=== PATIENT | female | born 1950 | race Caucasian/White ===

== ENCOUNTER 2016-12-31 14:43 | Emergency (ER) | payer MEDICARE, OTHER ==
--- NOTE | 2016-12-31 16:52 | ED ---
General Adult HPI - General Chief complaint: Head Injury Stated complaint: foot injury Time Seen by Provider: 12/31/16 16:30 Source: patient Mode of arrival: ambulatory Limitations: no limitations - History of Present Illness Initial comments: 66-year-old female patient comes into the emergency Department with complaints of right foot and ankle pain, right lower back pain and hip pain, and headaches. She states about a week ago she was moving a couch when she accidentally dropped it on her foot and twisted her ankle in the process. Patient states that later that evening she was walking her dog when she fell forward injuring her right hip and hitting her head on the sidewalk. Patient states that she did not lose consciousness but felt dazed and saw stars after hitting her head. Patient states since then she has been having headaches, has been nauseated, and has felt generally run down since the incident. Patient is able to bear weight and walk on her ankle but states it causes her a lot of pain. She denies any chest pain, shortness of breath, blurred, or double vision. Patient denies any dizziness, weakness, numbness, or tingling anywhere. - Related Data Home Medications Medication Instructions Recorded Confirmed Albuterol Inhaler [Ventolin Hfa 1 - 2 puff INHALATION RT-Q6H PRN 12/31/16 Inhaler] Dextroamphetamine/Amphetamine 15 mg PO QAM 12/31/16 12/31/16 [Adderall Xr] HYDROcodone/APAP 10-325MG [[place] 1 tab PO TID PRN 12/31/16 12/31/16 10-325] SUMAtriptan SUCCINATE [Imitrex] 100 mg PO BID PRN 12/31/16 12/31/16 Topiramate [Topamax] 50 mg PO HS 12/31/16 12/31/16 Verapamil HCl [Verapamil ER] 120 mg PO DAILY 12/31/16 12/31/16 Previous Rx's Medication Instructions Recorded Cyclobenzaprine [Flexeril] 5 mg PO TID PRN #15 tablet 12/31/16 Ibuprofen [Motrin] 600 mg PO Q8HR PRN #30 tab 12/31/16 Allergies Allergy/AdvReac Type Severity Reaction Status Date / Time No Known Allergies Allergy Verified 12/31/16 15:50 Review of Systems ROS Statement: Those systems with pertinent positive or pertinent negative responses have been documented in the HPI. ROS Other: All systems not noted in ROS Statement are negative. Past Medical History Past Medical History: COPD, Hyperlipidemia, Hypertension Additional Past Medical History / Comment(s): migraine, History of Any Multi-Drug Resistant Organisms: None Reported Past Surgical History: Orthopedic Surgery Additional Past Surgical History / Comment(s): hip surgery Past Psychological History: Bipolar Smoking Status: Former smoker Past Alcohol Use History: None Reported Past Drug Use History: None Reported General Exam Limitations: no limitations General appearance: alert, in no apparent distress Head exam: Present: atraumatic, normocephalic, normal inspection Eye exam: Present: normal appearance, PERRL, EOMI Pupils: Present: normal accommodation ENT exam: Present: normal exam, normal oropharynx, mucous membranes moist, TM's normal bilaterally. Absent: mucous membranes dry Neck exam: Present: normal inspection, full ROM. Absent: tenderness, lymphadenopathy Respiratory exam: Present: normal lung sounds bilaterally. Absent: respiratory distress, wheezes, rales, rhonchi, stridor, chest wall tenderness Cardiovascular Exam: Present: regular rate, normal rhythm, normal heart sounds. Absent: irregular rhythm, systolic murmur, diastolic murmur, rubs, gallop, clicks GI/Abdominal exam: Present: normal bowel sounds. Absent: distended, tenderness , guarding, rebound, rigid, diminished bowel sounds, organomegaly, mass, hernia Extremities exam: Present: full ROM, normal capillary refill, other (Right ankle and foot swelling, limited range of motion in the ankle due to pain, pedal pulses intact. Left knee abrasions. Left foot pedal pulse intact.) Back exam: Present: normal inspection, full ROM, tenderness (Left lower over the SI joint). Absent: CVA tenderness (R), CVA tenderness (L), muscle spasm Neurological exam: Present: alert, oriented X3, CN II-XII intact Psychiatric exam: Present: normal affect, normal mood Skin exam: Present: warm, dry, intact Course Vital Signs 12/31/16 15:46 Temperature 98.2 F Pulse Rate 67 Respiratory 20 Rate Blood Pressure 122/72 O2 Sat by Pulse 97 Oximetry Medical Decision Making - Medical Decision Making 66-year-old female patient presented to the emergency department today for complaints of headache, low back pain, and right ankle pain after dropping a couch on her foot and then later that night experiencing a fall. CT of the brain and C-spine was obtained and showed no acute intracranial abnormalities as well as no acute fracture or subluxation of the cervical spine. X-rays are obtained of her pelvis, ankle, and foot which also showed no acute bony abnormalities. Patient will be discharged home with a prescription for ibuprofen, and Flexeril to add to her home [place] for pain control. Patient was instructed to follow-up with her primary care provider in one to 2 days for recheck. Patient understands that she should return for any worsening, new, or concerning symptoms. Patient agrees with this plan. - Radiology Data Radiology results: report reviewed, image reviewed Interpreted by me: X-ray of the pelvis, foot, and ankle, and reveal no acute bony abnormalities. CT of the brain and C-spine without contrast was obtained. Impression: No acute fracture or dislocation evident the cervical spine. No acute intracranial hemorrhage, mass effect, or midline shift seen as read by Dr. Nguyen. Disposition Clinical Impression: Acute low back pain, Ankle sprain, Head injury Disposition: HOME SELF-CARE Condition: Stable Instructions: Head Injury (ED), Ankle Sprain (ED), Acute Low Back Pain (ED) Additional Instructions: Utilize air splint to right ankle for comfort. Take muscle relaxers and ibuprofen as well as home prescription of [place] for pain control. Follow up with primary care physician in one to 2 days for recheck. Return to emergency department for any new, worsening, or concerning symptoms. Prescriptions: Cyclobenzaprine [Flexeril] 5 mg PO TID PRN #15 tablet PRN Reason: Muscle Spasm Ibuprofen [Motrin] 600 mg PO Q8HR PRN #30 tab PRN Reason: Pain Referrals: Alfonzo Sampson MD [Primary Care Provider] - 1-2 days Time of Disposition: 19:07
--- NOTE | 2016-12-31 18:10 | CT ---
EXAMINATION TYPE: CT brain oruqidea wo con DATE OF EXAM: 12/31/2016 5:36 PM COMPARISON: NONE HISTORY: Fall 6 days ago. Headache and neck pain. CT DLP: 1549.00 mGycm Automated exposure control for dose reduction was used. TECHNIQUE: CT scan of the head and cervical spine are performed without contrast. FINDINGS: There is no acute intracranial hemorrhage, mass effect, or midline shift identified. The ventricles and sulci are within normal limits in size. The globes are intact and the visualized sin uses are clear. Cervical spine is visualized in its entirety from C1 through upper thoracic levels and demonstrates s atisfactory alignment without evidence of acute fracture or dislocation. Prevertebral soft tissue ap pears within normal limits. The C1-C2 articulation is unremarkable. Prominent multilevel cervical sp ondylosis changes are appreciated. IMPRESSION: 1. There is no acute fracture or dislocation evident in the cervical spine. 2. No acute intracranial hemorrhage, mass effect, or midline shift is seen.
--- NOTE | 2016-12-31 19:25 | XR ---
EXAMINATION TYPE: XR pelvis AP view DATE OF EXAM: 12/31/2016 5:43 PM COMPARISON: NONE HISTORY: Pain after fall TECHNIQUE: AP pelvis one view FINDINGS: The right THR is intact. There is no fracture or malalignment. IMPRESSION: No acute process.
--- NOTE | 2016-12-31 19:27 | XR ---
EXAMINATION TYPE: XR ankle complete RT DATE OF EXAM: 12/31/2016 5:43 PM COMPARISON: NONE HISTORY: Pain after injury TECHNIQUE: 3 views FINDINGS: Bones and joints and soft tissues are unremarkable. IMPRESSION: No acute process.
--- NOTE | 2016-12-31 19:28 | XR ---
EXAMINATION TYPE: XR foot complete RT DATE OF EXAM: 12/31/2016 5:43 PM COMPARISON: NONE HISTORY: Pain after injury TECHNIQUE: 3 views FINDINGS: The bones and joints and soft tissues are unremarkable for acute findings. IMPRESSION: Negative for fracture or malalignment.
[2016-12-31 19:30] VITALS: BP 152/84; PULSE 80; RESP 18; TEMP 97.4
== END 2016-12-31 19:30 | disposition home or self-care (01) ==
LOC: EC 14:43
DX: M54.5 Low back pain (principal); S93.401A Sprain of unspecified ligament of right ankle, initial encounter; W20.8XXA Other cause of strike by thrown, projected or falling object, initial encounter; S09.90XA Unspecified injury of head, initial encounter; W01.0XXA Fall on same level from slipping, tripping and stumbling without subsequent striking against object, initial encounter; Y93.K1 Activity, walking an animal; Z79.899 Other long term (current) drug therapy; I10 Essential (primary) hypertension; Z87.891 Personal history of nicotine dependence; G43.909 Migraine, unspecified, not intractable, without status migrainosus
CPT/HCPCS: 70450; 72125; 72170; 99284

== ENCOUNTER 2017-01-29 23:38 | Emergency (ER) | payer MEDICARE, OTHER ==
[2017-01-29 23:49] VITALS: RESP 18
[2017-01-30] MEDS ORDERED: DEXAMETHASONE SOD PHOSPHATE 4 MG/ML 1 ML VIAL IV STA (00:09)
[2017-01-30] MEDS ORDERED: diphenhydrAMINE 50 MG/ML 1 ML VIAL IVP STA (00:09)
[2017-01-30] MEDS ORDERED: SODIUM CHLORIDE 0.9% 1,000 ML IV ONE (00:11)
[2017-01-30] MEDS ORDERED: METOCLOPRAMIDE 5 MG/ML 2 ML VIAL IVP STA (00:11)
--- NOTE | 2017-01-30 00:18 | ED ---
General Adult HPI - General Chief complaint: Headache Stated complaint: ASTER,chest pain,feet swelling Time Seen by Provider: 01/29/17 23:58 Source: patient, RN notes reviewed Mode of arrival: wheelchair Limitations: no limitations - History of Present Illness Initial comments: This is a 66-year-old female who presents with chronic migraine symptoms. Patient states she has not had them in a while but her daughter early in December this year and they have returned. Patient denies any head injury. Patient is not on any anticoagulants. Patient states she gets some mild nausea with her migraine symptoms but denies any photophobia. Patient states these are the same migraine symptoms she gets with every migraine. Patient states she has tried Motrin and Imitrex and [place] for the headache but this has not helped. Patient states she has been more depressed than usual but denies any suicidal ideation or homicidal ideation. Patient also reports a cough for the past 2 weeks that has been productive. Patient states she is concerned for pneumonia. Patient admits to being a smoker, but states she quit two months ago. Patient states she has a history of COPD. Patient denies any fever/chills but states she's been feeling more warm than usual. Patient denies any recent shortness breath, chest pain, abdominal pain, vomiting/diarrhea, back pain, numbness, tingling, hematuria, or visual changes, or any other complaints. - Related Data Home Medications Medication Instructions Recorded Confirmed Albuterol Inhaler [Ventolin Hfa 1 - 2 puff INHALATION RT-Q6H PRN 12/31/16 Inhaler] Dextroamphetamine/Amphetamine 15 mg PO QAM 12/31/16 01/29/17 [Adderall Xr] HYDROcodone/APAP 10-325MG [[place] 1 tab PO TID PRN 12/31/16 01/29/17 10-325] SUMAtriptan SUCCINATE [Imitrex] 100 mg PO BID PRN 12/31/16 01/29/17 Topiramate [Topamax] 50 mg PO HS 12/31/16 01/29/17 Verapamil HCl [Verapamil ER] 120 mg PO DAILY 12/31/16 01/29/17 Previous Rx's Medication Instructions Recorded Cyclobenzaprine [Flexeril] 5 mg PO TID PRN #15 tablet 12/31/16 Ibuprofen [Motrin] 600 mg PO Q8HR PRN #30 tab 12/31/16 Azithromycin [Zithromax Z-pack] 250 mg PO DIRECTED #6 tab 01/30/17 Benzonatate [Tessalon Perles] 100 mg PO TID 3 Days 01/30/17 predniSONE 20 mg PO DAILY 5 Days 01/30/17 Allergies Allergy/AdvReac Type Severity Reaction Status Date / Time No Known Allergies Allergy Verified 01/29/17 23:48 Review of Systems ROS Statement: Those systems with pertinent positive or pertinent negative responses have been documented in the HPI. ROS Other: All systems not noted in ROS Statement are negative. Past Medical History Past Medical History: COPD, Hyperlipidemia, Hypertension Additional Past Medical History / Comment(s): migraine, History of Any Multi-Drug Resistant Organisms: None Reported Past Surgical History: Orthopedic Surgery Additional Past Surgical History / Comment(s): hip surgery Past Psychological History: Anxiety, Bipolar, Depression, Panic Disorder Smoking Status: Former smoker Past Alcohol Use History: None Reported Past Drug Use History: None Reported General Exam - General Exam Comments Initial Comments: General: The patient is awake and alert, in no distress, and does not appear acutely ill. Eye: Pupils are equal, round and reactive to light, extra-ocular movements are intact. No nystagmus. There is normal conjunctiva bilaterally. No signs of icterus. Ears: TMs pink and pearly with intact cone of light bilaterally. Normal external ear canals Nose: Nasal turbinates pink and moist Mouth and throat: There are moist mucous membranes and no oral lesions. Neck: The neck is supple, there is no tenderness or JVD. Cardiovascular: There is a regular rate and rhythm. No murmur, rub or gallop is appreciated. Respiratory: Productive cough present on exam. Lungs with faint wheezes bilaterally, respirations are non-labored, breath sounds are equal. No stridor , rales, or rhonchi. Gastrointestinal: Soft, non-distended, non-tender abdomen without masses or organomegaly noted. There is no rebound or guarding present. No CVA tenderness. Bowel sounds are unremarkable. Musculoskeletal: Normal ROM, no tenderness. Strength 5/5. Sensation intact. Radial pulses equal bilaterally 2+. Neurological: A&O x 3. CN II-XII intact, There are no obvious motor or sensory deficits. Coordination appears grossly intact. Speech is normal. Skin: Skin is warm and dry and no rashes or lesions are noted. Psychiatric: Cooperative, appropriate mood & affect, normal judgment. Limitations: no limitations Course Vital Signs 01/29/17 01/30/17 23:45 00:49 Temperature 98.6 F Pulse Rate 82 75 Respiratory 18 18 Rate Blood Pressure 106/59 O2 Sat by Pulse 93 L 95 Oximetry Medical Decision Making - Medical Decision Making This is a 66-year-old female who presents with chronic migraine symptoms. On physical exam patient is neurologically intact. Patient has productive cough present on exam. Lungs with faint wheezes. A chest x-ray is done and reviewed showing: No acute findings. Reported by Dr. Al. Patient is given IV Benadryl, Reglan, dexamethasone and a fluid bolus. Patient states she is feeling improvement in symptoms and states her headache is gone. I discussed the results of the chest x-ray with patient. Discussed that the patient will be put on azithromycin for upper respiratory infection. Discussed the patient will also be put on a short course of prednisone and Tessalon Perles. Patient refused a DuoNeb in the EC today stating she does not feel short of breath. Patient states she has inhalers at home that she uses for COPD symptoms if needed. Discussed return parameters. Discussed that patient should follow up with PCP in one to 2 days or return to the [facility] for any worsening symptoms or for any further concerns. Patient was receptive to this plan and patient will be discharged home. I discussed this case with attending physician Dr. Rodriguez who agrees the plan as stated above. Disposition Clinical Impression: Cough, Migraine, Upper respiratory infection Disposition: HOME SELF-CARE Condition: Good Instructions: Migraine Headache (ED), Upper Respiratory Infection (ED) Additional Instructions: Please finish entire course of antibiotics. Please use prednisone and Tessalon Perles as prescribed. Please use medication as discussed. Please follow-up with family doctor in the next 2 days of symptoms have not improved. Please return to emergency room if the symptoms increase or worsen or for any other concerns. Prescriptions: Azithromycin [Zithromax Z-pack] 250 mg PO DIRECTED #6 tab Benzonatate [Tessalon Perles] 100 mg PO TID 3 Days predniSONE 20 mg PO DAILY 5 Days Referrals: Alfonzo Sampson MD [Primary Care Provider] - 1-2 days Time of Disposition: 01:21
--- NOTE | 2017-01-30 01:02 | XR ---
EXAM: XR Chest, 2 Views. CLINICAL HISTORY: Pain TECHNIQUE: Frontal and lateral views of the chest. COMPARISON: No relevant prior studies available. FINDINGS: Lungs: Small amount left basilar airspace opacities likely represent atelectasis and/or pneumonia. Pressure. Pleural space: Unremarkable. No pneumothorax. Heart: Unremarkable. No cardiomegaly. Mediastinum: Unremarkable. Bones/joints: Osteopenia. IMPRESSION: No acute findings.
[2017-01-30 01:38] VITALS: BP 120/69; PULSE 90; TEMP 97.8
== END 2017-01-30 01:42 | disposition home or self-care (01) ==
LOC: EC 23:38
DX: G43.909 Migraine, unspecified, not intractable, without status migrainosus (principal); J06.9 Acute upper respiratory infection, unspecified; R07.9 Chest pain, unspecified; J44.9 Chronic obstructive pulmonary disease, unspecified; I10 Essential (primary) hypertension; F41.0 Panic disorder [episodic paroxysmal anxiety]; F31.9 Bipolar disorder, unspecified; Z79.899 Other long term (current) drug therapy
CPT/HCPCS: 99283; 96374; 96375 ×2; 96361; 71020; J1200; J1100; J2765

== ENCOUNTER → 2017-12-30 | Outpatient (CLI) | payer MEDICARE, OTHER ==
[2017-12-30 12:32] LABS: Basophils # (A) 0.1 k/uL (0-0.2); Basophils % (A) 1 %; Eosinophils # (A) 0.1 k/uL (0-0.7); Eosinophils % (A) 2 %; HCT 40.1 % (34.0-46.0); HGB 12.8 gm/dL (11.4-16.0); Lymphocytes % (A) 41 %; MCH 29.8 pg (25.0-35.0); MCHC 31.9 g/dL (31.0-37.0); MCV 93.3 fL (80.0-100.0); Mean Platelet Volume 8.4; Monocytes # (A) 0.5 k/uL (0-1.0); Monocytes % (A) 7 %; Neutrophils # (A) 3.5 k/uL (1.3-7.7); Neutrophils % (A) 47 %; Platelet Count 279 k/uL (150-450); RDW 13.3 % (11.5-15.5); WBC 7.3 k/uL (3.8-10.6)
[2017-12-30 13:03] LABS: ALT 20 U/L (9-52); AST 25 U/L (14-36); Albumin 4.6 g/dL (3.5-5.0); Alkaline Phosphatase 71 U/L (38-126); Anion Gap 12 mmol/L; Blood Urea Nitrogen 14 mg/dL (7-17); Calcium 10.9 mg/dL (8.4-10.2); Carbon Dioxide 24 mmol/L (22-30); Chloride 110 mmol/L (98-107); Cholesterol 149 mg/dL (<200); Glucose 103 mg/dL (74-99); HDL Cholesterol 65 mg/dL (40-60); LDL Cholesterol,Calculated 66 mg/dL (0-99); Potassium 4.4 mmol/L (3.5-5.1); Sodium 146 mmol/L (137-145); Total Bilirubin 0.5 mg/dL (0.2-1.3); Total Protein 7.4 g/dL (6.3-8.2); Triglycerides 91 mg/dL (<150)
[2017-12-30 20:47] LABS: Hemoglobin A1C 5.8 % (4.0-6.0)
== END | disposition home or self-care (01) ==
LOC: LABWHC1 11:58
PROVIDERS: ATTEND Internal Medicine
DX: E55.9 Vitamin D deficiency, unspecified (principal); I10 Essential (primary) hypertension; J44.9 Chronic obstructive pulmonary disease, unspecified; R53.83 Other fatigue; R73.09 Other abnormal glucose
CPT/HCPCS: 36415; 80053; 80061; 82306; 83036; 84443; 85025

== ENCOUNTER → 2018-02-06 | Outpatient (CLI) | payer MEDICARE, OTHER ==
--- NOTE | 2018-02-08 10:48 | MM ---
Reason for exam: screening (asymptomatic). Last mammogram was performed 3 years and 9 months ago. History: Patient is postmenopausal. Family history of breast cancer in sister. Physical Findings: A clinical breast exam by your physician is recommended on an annual basis and results should be correlated with mammographic findings. MG 3D Screening Mammo W/Cad Bilateral CC and MLO view(s) were taken. Prior study comparison: April 28, 2014, bilateral MG screening mammo w CAD. December 05, 2005, bilateral screening mammogram w/CAD. There are scattered fibroglandular densities. Stable nodule left breast. No significant changes when compared with prior studies. ASSESSMENT: Benign, BI-RAD 2 RECOMMENDATION: Routine screening mammogram of both breasts in 1 year.
== END | disposition home or self-care (01) ==
LOC: RADMAMWWP 11:14
PROVIDERS: ATTEND Internal Medicine
DX: Z12.31 Encounter for screening mammogram for malignant neoplasm of breast (principal)
CPT/HCPCS: 77063; 77067

== ENCOUNTER → 2019-11-11 | Outpatient (CLI) | payer MEDICARE, OTHER ==
[~2019-11-11] MED LIST: DENOSUMAB 60 MG/ML 1 ML SYRINGE SQ NR
[2019-11-11 13:14] VITALS: BP 144/81; PULSE 76; RESP 18; TEMP 99.3
== END | disposition home or self-care (01) ==
LOC: PROCWHC3 12:58
PROVIDERS: ATTEND Internal Medicine
DX: M81.0 Age-related osteoporosis without current pathological fracture (principal)
CPT/HCPCS: 96372; J0897

== ENCOUNTER → 2020-05-11 | Outpatient (CLI) | payer MEDICARE, OTHER ==
[2020-05-11 13:43] VITALS: BP 125/83; PULSE 74; RESP 18; TEMP 98.5
== END | disposition home or self-care (01) ==
LOC: PROCWHC3 13:27
PROVIDERS: ATTEND Internal Medicine
DX: M81.0 Age-related osteoporosis without current pathological fracture (principal)
CPT/HCPCS: 96372; J0897

== ENCOUNTER 2022-02-24 11:49 | Inpatient (IN) | payer MEDICARE, OTHER ==
[2022-02-24] MEDS ORDERED: VANCOMYCIN IV PER PHARMACY 1 EACH MISC MISCELLANE PRN (15:03)
--- NOTE | 2022-02-24 15:28 | ED ---
General Adult HPI - General Chief complaint: Skin/Abscess/Foreign Body Stated complaint: Staph Infection Time Seen by Provider: 02/24/22 14:43 Source: patient Mode of arrival: ambulatory Limitations: no limitations - History of Present Illness Initial comments: This 71-year-old female presents emergency Department with facial cellulitis after having an infection on her chin start one month ago. Patient states she had a pimple on her chin around 3-4 weeks ago and popped it. Patient states over the last 2-3 weeks it began to become more erythematous and began to spread to in between her eyebrows and on her face in the housecalls nurse of the left side of h er mouth. Patient states her primary care doctor is and he prescribed her Bactrim about 2 weeks ago which she has completed. Patient states she went to [facility] and was given Keflex before discharge which she has also completed. Patient states she went to see her primary care provider today and he sent her here for IV antibiotics as the cellulitis is spreading on her face after taking 2 different antibiotics. Patient states these areas are painful but denies any drainage. Patient states her pain is 5/10. Patient denies any chest pain, shortness of breath, abdominal pain, fever, nausea, vomiting, change in bowel or bladder, change in vision, lightheadedness, dizziness, trouble swallowing. - Related Data Home Medications Medication Instructions Recorded Confirmed Albuterol Inhaler (Mhu) [Ventolin 1 - 2 puff INHALATION RT-Q6H PRN 12/31/16 05/11/20 Hfa Inhaler] HYDROcodone/APAP 10-325MG [[place] 1 tab PO TID PRN 12/31/16 05/11/20 10-325] SUMAtriptan SUCCINATE [Imitrex] 100 mg PO BID PRN 12/31/16 05/11/20 Verapamil HCl [Verapamil ER] 120 mg PO DAILY 12/31/16 05/11/20 ALPRAZolam [Xanax] 1 tab PO DIRECTED PRN 11/11/19 05/11/20 Citalopram Hydrobromide [CeleXA] 20 mg PO DAILY 11/11/19 05/11/20 Allergies Allergy/AdvReac Type Severity Reaction Status Date / Time No Known Allergies Allergy Verified 02/24/22 13:02 Review of Systems ROS Statement: Those systems with pertinent positive or pertinent negative responses have been documented in the HPI. ROS Other: All systems not noted in ROS Statement are negative. Past Medical History Past Medical History: COPD, Hyperlipidemia, Hypertension Additional Past Medical History / Comment(s): migraine, History of Any Multi-Drug Resistant Organisms: None Reported Past Surgical History: Orthopedic Surgery Additional Past Surgical History / Comment(s): hip surgery Past Psychological History: Anxiety, Bipolar, Depression, Panic Disorder Smoking Status: Never smoker Past Alcohol Use History: None Reported Past Drug Use History: None Reported General Exam Limitations: no limitations General appearance: alert, in no apparent distress Head exam: Present: atraumatic, normocephalic. Absent: normal inspection (Patient with a quarter size erythematous indurated area on chin; erythema and crusting to the left side of corner mouth, erythema/crusting area 0.5cm in between eyebrows) Eye exam: Present: normal appearance, PERRL, EOMI. Absent: scleral icterus, conjunctival injection, periorbital swelling Pupils: Present: normal accommodation ENT exam: Present: normal exam, mucous membranes moist Neck exam: Present: normal inspection, full ROM. Absent: tenderness, meningismus, lymphadenopathy Respiratory exam: Present: normal lung sounds bilaterally. Absent: respiratory distress, wheezes, rales, rhonchi, stridor, chest wall tenderness Cardiovascular Exam: Present: regular rate, normal rhythm, normal heart sounds. Absent: systolic murmur, diastolic murmur, rubs, gallop, clicks GI/Abdominal exam: Present: soft, normal bowel sounds. Absent: distended, tenderness, guarding, rebound, rigid Extremities exam: Present: normal inspection, full ROM, normal capillary refill. Absent: tenderness, pedal edema, joint swelling, calf tenderness Back exam: Present: full ROM. Absent: CVA tenderness (R), CVA tenderness (L), paraspinal tenderness, vertebral tenderness Neurological exam: Present: alert, oriented X3, CN II-XII intact Psychiatric exam: Present: normal affect, normal mood Skin exam: Present: warm, dry, intact, normal color. Absent: rash Course Vital Signs 02/24/22 13:02 Temperature 97.3 F L Pulse Rate 80 Respiratory 16 Rate Blood Pressure 146/79 O2 Sat by Pulse 97 Oximetry Medical Decision Making - Medical Decision Making This 71-year-old female presents emergency Department after being sent here by her primary care provider. Patient has had infection to her chin and was treated with Bactrim and Keflex, however infection spread to corner of mouth and in between her eyebrows. Primary care physician, requested patient be admitted to the hospital on IV vancomycin in to be seen by infectious disease. He also requested I order blood cultures. I did order basic labs which did not reveal leukocytosis or other acute abnormalities. Patient admitted to the hospital to be seen by his primary care physician and infectious disease. Patient verbally agreed to plan to be admitted for further workup, evaluation and treatment. Discussed case in detail with my attending, Dr. Segura. - Lab Data Result diagrams: 02/24/22 15:30 02/24/22 15:30 Lab Results 02/24/22 02/24/22 02/24/22 Range/Units 15:30 15:30 15:30 WBC 8.6 (3.8-10.6) k/uL RBC 4.18 (3.80-5.40) m/uL Hgb 12.7 (11.4-16.0) gm/dL Hct 38.9 (34.0-46.0) % MCV 93.0 (80.0-100.0) fL MCH 30.5 (25.0-35.0) pg MCHC 32.7 (31.0-37.0) g/dL RDW 14.1 (11.5-15.5) % Plt Count 343 (150-450) k/uL MPV 7.8 Neutrophils % 57 % Lymphocytes % 33 % Monocytes % 5 % Eosinophils % 1 % Basophils % 1 % Neutrophils # 4.9 (1.3-7.7) k/uL Lymphocytes # 2.9 (1.0-4.8) k/uL Monocytes # 0.4 (0-1.0) k/uL Eosinophils # 0.1 (0-0.7) k/uL Basophils # 0.1 (0-0.2) k/uL Sodium 142 (137-145) mmol/L Potassium 3.4 L (3.5-5.1) mmol/L Chloride 107 (98-107) mmol/L Carbon Dioxide 23 (22-30) mmol/L Anion Gap 12 mmol/L BUN 15 (7-17) mg/dL Creatinine 0.58 (0.52-1.04) mg/dL Est GFR (CKD-EPI)AfAm >90 (>60 ml/min/1.73 sqM) Est GFR (CKD-EPI)NonAf >90 (>60 ml/min/1.73 sqM) Glucose 103 H (74-99) mg/dL Plasma Lactic Acid Anatoliy 0.9 (0.7-2.0) mmol/L Calcium 9.4 (8.4-10.2) mg/dL Total Bilirubin 0.5 (0.2-1.3) mg/dL AST 22 (14-36) U/L ALT 12 (4-34) U/L Alkaline Phosphatase 65 (38-126) U/L Total Protein 7.6 (6.3-8.2) g/dL Albumin 4.5 (3.5-5.0) g/dL Disposition Clinical Impression: Infection, face, Cellulitis, face Disposition: ADMITTED IP TO THIS [facility] Condition: Serious Referrals: Alfonso Chung MD [Primary Care Provider] - 1-2 days
[2022-02-24 15:35] LABS: Basophils # (A) 0.1 k/uL (0-0.2); Basophils % (A) 1 %; Eosinophils # (A) 0.1 k/uL (0-0.7); Eosinophils % (A) 1 %; HCT 38.9 % (34.0-46.0); HGB 12.7 gm/dL (11.4-16.0); Lymphocytes # (A) 2.9 k/uL (1.0-4.8); Lymphocytes % (A) 33 %; MCH 30.5 pg (25.0-35.0); MCHC 32.7 g/dL (31.0-37.0); Mean Platelet Volume 7.8; Monocytes # (A) 0.4 k/uL (0-1.0); Monocytes % (A) 5 %; Neutrophils # (A) 4.9 k/uL (1.3-7.7); Neutrophils % (A) 57 %; Platelet Count 343 k/uL (150-450); RBC 4.18 m/uL (3.80-5.40); RDW 14.1 % (11.5-15.5); WBC 8.6 k/uL (3.8-10.6)
[2022-02-24 15:45] LABS: ALT 12 U/L (4-34); AST 22 U/L (14-36); African American GFR (CKD) >90 (>60 ml/min/1.73 sqM); Albumin 4.5 g/dL (3.5-5.0); Alkaline Phosphatase 65 U/L (38-126); Anion Gap 12 mmol/L; Blood Urea Nitrogen 15 mg/dL (7-17); Calcium 9.4 mg/dL (8.4-10.2); Carbon Dioxide 23 mmol/L (22-30); Chloride 107 mmol/L (98-107); Glucose 103 mg/dL (74-99); Non-African American GFR(CKD) >90 (>60 ml/min/1.73 sqM); Potassium 3.4 mmol/L (3.5-5.1); Sodium 142 mmol/L (137-145); Total Bilirubin 0.5 mg/dL (0.2-1.3); Total Protein 7.6 g/dL (6.3-8.2)
[2022-02-24] MEDS: MORPHINE SULFATE 2 MG/ML SYRINGE IVP PRN (15:59)
[2022-02-24] MEDS ORDERED: VANCOMYCIN 1,250 MG in SODIUM CHLORIDE 0.9% 250 ML IVPB ONE (16:00)
[2022-02-24] MEDS ORDERED: ONDANSETRON 4 MG/2 ML VIAL IVP PRN (16:58)
[2022-02-24] MEDS ORDERED: NALOXONE 0.4 MG/ML 1 ML VIAL IV PRN (16:58)
[2022-02-24] MEDS ORDERED: SUMAtriptan succinate 50 MG TAB PO PRN (19:39)
[2022-02-24] MEDS ORDERED: methylPREDNISolone SOD SUCCI 125 MG/2 ML VIAL IVP ONE (20:14)
[2022-02-24] MEDS ORDERED: diphenhydrAMINE 50 MG/ML 1 ML VIAL IVP STA (20:14)
[2022-02-24] MEDS: HYDROcodone/APAP 10-325MG 1 EACH TAB PO PRN (20:51)
[2022-02-24] MEDS: diphenhydrAMINE 25 MG CAP PO SCH (21:32)
[2022-02-24] MEDS: ALPRAZolam 0.5 MG TAB PO SCH (21:41)
[2022-02-24] MEDS: MUPIROCIN 2% OINT 22 GM TUBE TOPICAL SCH (21:54)
--- NOTE | 2022-02-25 00:30 | P.CONS ---
History of Present Illness - Reason for Consult Consult date: 02/24/22 - History of Present Illness History of Present Illness : Patient is a 71-year female developed a pimple on her chin more than 2 weeks ago patient mention she tried to open with a tweezer and subsequently noticed to have some drainage patient subsequently was evaluated by her primary care physician and has been treated with the Bactrim DS and local antibiotic cream patient mention she did have some improvement but did not completely resolve subsequently patient was evaluated in the outpatient setting at different ER and she was given some Motrin but no antibiotics patient was evaluated by her primary care physician today with concern for facial cellulitis the patient was sent to the ER for admission and I V antibiotic therapy patient on presentation hospital was afebrile she has been complaining of pain to the chin area to be more of a throbbing about 7-8 out of 10 no radiation patient denies having any drainage from the area with associated swelling or redness patient was started on vancomycin apparently the patient did have some itching associated with it and the vancomycin was discontinued infec tious disease was consulted for further management of antibiotic therapy Review of system: CONSTITUTIONAL: Positive for weakness denies high-grade fever. EYES: No complaint. ENT: As per history of present illness. RESPIRATORY: No complaint. CARDIOVASCULAR: No complaint. GENITOURINARY: No complaint. GASTROINTESTINAL: No complaint. MUSCULOSKELETAL as per history of present illness. INTEGUMENTARY : No complaint. PSYCHOLOGIC: No complaint. ENDOCRINE: No complaint. NEUROLOGIC: No complaint. Past medical history : Reviewed, documented below Past surgical history : Reviewed, documented below Social history: Reviewed, documented below Medications: Reviewed, as documented below EXAMINATION: Vital sigans= Reviewed and documented below GENERAL DESCRIPTION: Elderly female lying in bed, no distress. No tachypnea or accessory muscle of respiration use. HEENT: Shows Pallor , no scleral icterus. Oral mucous membrane is dry. She did have did have a 2 small open wounds with surrounding swelling redness and no foul-smelling drainage NECK: Trachea central, no thyromegaly. LUNGS: Unlabored breathing. Clear to auscultation anteriorly. No wheeze or crackle. HEART: S1, S2, regular rate and rhythm. ABDOMEN: Soft, no tenderness , guarding or rigidity EXTREMITIES: No edema feet SKIN: No rash, no masses palpable. NEUROLOGICAL: The patient is awake, alert, oriented x3, mood and affect normal. LABS AND RADIOLOGY: Reviewed results see below Assessment : Patient presented to hospital with a facial cellulitis and this patient did have a pimple that the patient tried to open with a tweezer and failing outpatient Bactrim DS therapy high clinical suspicion for staphylococcal infection. 2vancomycin intolerance Plan: 1-local wound culture to guide antibiotic therapy 2-Marked area of the redness 3-daptomycin 4 mg/kg daily while waiting for the culture to finalize We will follow on clinical condition and cultures to further adjust medication if needed Thank you for this consultation we will follow the patient along with you Past Medical History Past Medical History: COPD, Hyperlipidemia, Hypertension Additional Past Medical History / Comment(s): migraine, History of Any Multi-Drug Resistant Organisms: None Reported Past Surgical History: Orthopedic Surgery Additional Past Surgical History / Comment(s): hip surgery Past Anesthesia/Blood Transfusion Reactions: No Reported Reaction Past Psychological History: Anxiety, Bipolar, Depression, Panic Disorder Smoking Status: Never smoker Past Alcohol Use History: None Reported Past Drug Use History: None Reported - Past Family History Father Family Medical History: CVA/TIA, Diabetes Mellitus Mother Family Medical History: Myocardial Infarction ([place]) Additional Family Medical History / Comment(s): In her 70's had a heart attack Medications and Allergies Home Medications Medication Instructions Recorded Confirmed Type HYDROcodone/APAP 10-325MG [[place] 1 tab PO TID PRN 12/31/16 02/24/22 History 10-325] ALPRAZolam [Xanax] 0.5 mg PO BID 11/11/19 02/24/22 History Alendronate Sodium [Fosamax] 70 mg PO Q7D 02/24/22 02/24/22 History Calcium Carbonate [Calcium] 600 mg PO DAILY 02/24/22 02/24/22 History Citalopram Hydrobromide [CeleXA] 40 mg PO DAILY 02/24/22 02/24/22 History Ibuprofen [Motrin] 800 mg PO Q8H PRN 02/24/22 02/24/22 History Levothyroxine Sodium [Synthroid] 25 mcg PO DAILY 02/24/22 02/24/22 History Mupirocin 2% Oint [Bactroban 2% 1 applic TOPICAL BID 02/24/22 02/24/22 History Oint] Rosuvastatin Calcium [Crestor] 5 mg PO DAILY 02/24/22 02/24/22 History SUMAtriptan succinate [Imitrex] 50 mg PO DAILY PRN 02/24/22 02/24/22 History Verapamil HCl [Verapamil ER] 180 mg PO DAILY 02/24/22 02/24/22 History diphenhydrAMINE [Benadryl] 50 mg PO HS 02/24/22 02/24/22 History Allergies Allergy/AdvReac Type Severity Reaction Status Date / Time vancomycin Allergy Rash/Hives Verified 02/24/22 20:18 Physical Exam Vitals: Vital Signs Temp Pulse Resp BP Pulse Ox 02/24/22 23:36 18 02/24/22 21:32 98.7 F 68 18 118/68 96 02/24/22 13:02 97.3 F L 80 16 146/79 97 Intake and Output 02/24/22 02/24/22 02/25/22 14:59 22:59 06:59 Other: Voiding Method Toilet Weight 58.967 kg 58.967 kg Results CBC & Chem 7: 02/24/22 15:30 02/24/22 15:30 Labs: Abnormal Lab Results - Last 24 Hours (Table) 02/24/22 Range/Units 15:30 Potassium 3.4 L (3.5-5.1) mmol/L Glucose 103 H (74-99) mg/dL
[2022-02-25] MEDS ORDERED: VANCOMYCIN 1,000 MG in SODIUM CHLORIDE 0.9% 250 ML IVPB SCH (06:00)
[2022-02-25] MEDS: HYDROcodone/APAP 10-325MG 1 EACH TAB PO PRN ×3 (07:14→23:39)
[2022-02-25] MEDS: ALPRAZolam 0.5 MG TAB PO SCH ×2 (08:24→20:36)
[2022-02-25] MEDS: LEVOTHYROXINE 25 MCG TAB PO SCH (08:24)
[2022-02-25] MEDS: VERAPAMIL SR 180 MG TABLET.ER PO SCH (08:24)
[2022-02-25] MEDS: CITALOPRAM HYDROBROMIDE 20 MG TAB PO SCH (08:24)
[2022-02-25] MEDS: CALCIUM CARB-VIT D 500 MG-5 MCG TAB PO SCH (08:24)
[2022-02-25] MEDS: MUPIROCIN 2% OINT 22 GM TUBE TOPICAL SCH ×2 (08:25→20:36)
--- NOTE | 2022-02-25 08:50 | P.HPIM ---
History of Present Illness H&P Date: 02/25/22 Rose Lakhani, is a 71-year-old female who presented to [facility] emergency room with a chief complaint of facial erythema and tenderness, patient's symptoms started about 3 weeks ago with a pimple on her s[place], she tried to open it up at home, she had erythema spreading in the lower jaw area, she was seen in the office and was given a course of oral Bactrim and local Mupirocin cream, symptoms initially improved however patient had worsening erythema with a new area of erythema on the bridge of her nose, she was seen in an outside emergency room and was given Motrin and referred back to our office, she was seen in the office on 02/24/2022. Patient has facial cellulitis likely related to MRSA, with worsening erythema and spreading cellulitis despite course of oral Bactrim, at that point patient was sent to emergency room for IV antibiotics, she was started on IV vancomycin in the emergency room and developed skin rash possibly due to ALLERGIC reaction, IV vancomycin was discontinued and infectious disease consultation was requested. She was evaluated in the emergency room vital examination on presentation revealed a temperature of 98.2 pulse 84 respirations 17 blood pressure 120/77 pulse ox 96% on room air Laboratory data revealed a white blood count of 8.6 hemoglobin 12.7 platelet count 343 sodium 142 potassium 3.4 chloride 107 CO2 23 BUN 15 creatinine 0.58 Patient was admitted to medical floor for further evaluation and treatment. Past medical history is significant for history of hypertension, hyperlipidemia, hypothyroidism, history of osteoarthritis, history of osteoporosis, history of depression with anxiety disorder and panic disorder. On review of systems patient is alert and oriented 3 in no apparent distress she is complaining of pain in the area of erythema on her face, she is also complaining of back pain which is chronic for her, otherwise she denies any complaints, there is no fever or chills no headache or dizziness no chest pain no shortness of breath no palpitation no cough no nausea or vomiting no abdominal pain no diarrhea no blood in the stools no burning with urination no frequency or urgency and no hematuria, there is no weakness or numbness in any of the extremities no change in vision speech or gait. Past Medical History Past Medical History: COPD, Hyperlipidemia, Hypertension Additional Past Medical History / Comment(s): migraine, History of Any Multi-Drug Resistant Organisms: None Reported Past Surgical History: Orthopedic Surgery Additional Past Surgical History / Comment(s): hip surgery Past Anesthesia/Blood Transfusion Reactions: No Reported Reaction Past Psychological History: Anxiety, Bipolar, Depression, Panic Disorder Smoking Status: Never smoker Past Alcohol Use History: None Reported Past Drug Use History: None Reported - Past Family History Father Family Medical History: CVA/TIA, Diabetes Mellitus Mother Family Medical History: Myocardial Infarction ([place]) Additional Family Medical History / Comment(s): In her 70's had a heart attack Medications and Allergies Home Medications Medication Instructions Recorded Confirmed Type HYDROcodone/APAP 10-325MG [[place] 1 tab PO TID PRN 12/31/16 02/24/22 History 10-325] ALPRAZolam [Xanax] 0.5 mg PO BID 11/11/19 02/24/22 History Alendronate Sodium [Fosamax] 70 mg PO Q7D 02/24/22 02/24/22 History Calcium Carbonate [Calcium] 600 mg PO DAILY 02/24/22 02/24/22 History Citalopram Hydrobromide [CeleXA] 40 mg PO DAILY 02/24/22 02/24/22 History Ibuprofen [Motrin] 800 mg PO Q8H PRN 02/24/22 02/24/22 History Levothyroxine Sodium [Synthroid] 25 mcg PO DAILY 02/24/22 02/24/22 History Mupirocin 2% Oint [Bactroban 2% 1 applic TOPICAL BID 02/24/22 02/24/22 History Oint] Rosuvastatin Calcium [Crestor] 5 mg PO DAILY 02/24/22 02/24/22 History SUMAtriptan succinate [Imitrex] 50 mg PO DAILY PRN 02/24/22 02/24/22 History Verapamil HCl [Verapamil ER] 180 mg PO DAILY 02/24/22 02/24/22 History diphenhydrAMINE [Benadryl] 50 mg PO HS 02/24/22 02/24/22 History Allergies Allergy/AdvReac Type Severity Reaction Status Date / Time vancomycin Allergy Rash/Hives Verified 02/24/22 20:18 Physical Exam Vitals: Vital Signs Temp Pulse Pulse Resp BP BP BP 02/25/22 07:30 98.2 F 84 17 120/77 02/25/22 03:26 98.1 F 71 16 113/69 02/25/22 01:03 18 02/24/22 23:36 18 02/24/22 23:34 98.1 F 77 16 148/75 02/24/22 21:32 98.7 F 68 18 118/68 02/24/22 13:02 97.3 F L 80 16 146/79 Pulse Ox 02/25/22 07:30 96 02/25/22 03:26 95 02/25/22 01:03 02/24/22 23:36 02/24/22 23:34 95 02/24/22 21:32 96 02/24/22 13:02 97 Intake and Output 02/24/22 02/25/22 02/25/22 22:59 06:59 14:59 Intake Total 240 240 Balance 240 240 Intake: Oral 240 240 Other: Voiding Method Toilet Toilet Weight 58.967 kg In general patient is alert and oriented x 3 in no distress HEENT head normocephalic and atraumatic Neck is supple no JVD no goiter no lymphadenopathy no carotid bruit Chest examination is clear to auscultation no crackles no wheezing Cardiac exam reveals regular heart sounds S1 and S2 no gallops no murmurs Abdomen is soft nontender no organomegaly with normal bowel sounds Extremity exam reveals no edema no cyanosis or clubbing Skin exam reveals erythema and tenderness on the bridge of the nose and on the lower [place]antiago area Neurological examination reveals no gross focal deficits Results CBC & Chem 7: 02/24/22 15:30 02/24/22 15:30 Labs: Abnormal Lab Results - Last 24 Hours (Table) 02/24/22 Range/Units 15:30 Potassium 3.4 L (3.5-5.1) mmol/L Glucose 103 H (74-99) mg/dL Thrombosis Risk Factor Assmnt - Choose All That Apply Any of the Below Risk Factors Present?: Yes Each Risk Factor Represents 2 Points: Age 61-74 years Thrombosis Risk Factor Assessment Total Risk Factor Score: 2 Thrombosis Risk Factor Assessment Level: Low Risk Assessment and Plan Plan: Facial cellulitis, failed outpatient therapy with oral Bactrim, and local Mupirocin. Underlying history of hypertension Underlying history of hyperlipidemia Underlying history of hypothyroidism Underlying history of migraine headache Underlying history of osteoarthritis Underlying history of depression, bipolar disorder, and anxiety disorder Underlying history of osteoporosis ALLERGIC reaction to IV vancomycin in the emergency room on presentation At this time patient is admitted to medical floor She was started on IV daptomycin by Dr. Sanders Wound culture were obtained Home medications reviewed and reordered Patient started on subcu Lovenox for DVT prophylaxis and oral Protonix for GI prophylaxis Will follow eusebio
[2022-02-25] MEDS: ENOXAPARIN 40 MG/0.4 ML SYRINGE SQ SCH (08:54)
[2022-02-25] MEDS ORDERED: ATORVASTATIN 10 MG TAB PO SCH (09:00)
[2022-02-25] MEDS: MORPHINE SULFATE 2 MG/ML SYRINGE IVP PRN (12:51)
[2022-02-25 15:34] LABS: Appearance,Urine Clear (Clear); Bilirubin,Urine Negative (Negative); Blood,Urine Negative (Negative); Color,Urine Yellow; Glucose,Urine (UA) Negative (Negative); Ketones,Urine Negative (Negative); Leukocyte Esterase,Urine Trace (Negative); Mucus,Urine Moderate /hpf; Nitrite,Urine Negative (Negative); Protein,Urine Trace (Negative); RBC,Urine 1 /hpf (0-5); Specific Gravity,Urine 1.034 (1.001-1.035); Squamous Epithelial Cell,Urine 1 /hpf (0-4); Urobilinogen,Urine <2.0 mg/dL (<2.0); WBC,Urine 3 /hpf (0-5)
[2022-02-25] MEDS: diphenhydrAMINE 25 MG CAP PO SCH (20:36)
[2022-02-25] MEDS: IBUPROFEN 800 MG TAB PO PRN (20:37)
[2022-02-26] MEDS: MORPHINE SULFATE 2 MG/ML SYRINGE IVP PRN ×3 (01:56→17:20)
[2022-02-26] MEDS: LEVOTHYROXINE 25 MCG TAB PO SCH (05:47)
[2022-02-26] MEDS: CITALOPRAM HYDROBROMIDE 20 MG TAB PO SCH (08:59)
[2022-02-26] MEDS: ALPRAZolam 0.5 MG TAB PO SCH ×2 (08:59→20:27)
[2022-02-26] MEDS: ENOXAPARIN 40 MG/0.4 ML SYRINGE SQ SCH (08:59)
[2022-02-26] MEDS: VERAPAMIL SR 180 MG TABLET.ER PO SCH (09:00)
[2022-02-26] MEDS: PANTOPRAZOLE 40 MG TABLET PO SCH (09:00)
[2022-02-26] MEDS: HYDROcodone/APAP 10-325MG 1 EACH TAB PO PRN ×3 (09:08→20:27)
[2022-02-26] MEDS: MUPIROCIN 2% OINT 22 GM TUBE TOPICAL SCH ×2 (09:25→20:27)
[2022-02-26 10:50] LABS: Basophils # (A) 0.06 X 10*3/uL (0.00-0.10); Basophils % (A) 0.6 %; Eosinophils # (A) 0.14 X 10*3/uL (0.04-0.35); Eosinophils % (A) 1.3 %; HCT 34.3 % (37.2-46.3); HGB 10.4 g/dL (12.0-15.0); Immature Grans, Automated 0.4 %; Lymphocytes # (A) 4.21 X 10*3/uL (0.90-5.00); Lymphocytes % (A) 39.6 %; MCH 29.4 pg (27.0-32.0); MCHC 30.3 g/dL (32.0-37.0); MCV 96.9 fL (80.0-97.0); Mean Platelet Volume 11.2 fL (9.5-12.2); Monocytes # (A) 0.85 X 10*3/uL (0.20-1.00); NRBC Per 100 WBC 0 /100 WBCS (0.0-0.0); Neutrophils # (A) 5.33 X 10*3/uL (1.80-7.70); Neutrophils % (A) 50.1 %; Platelet Count 265 X 10*3/uL (140-440); RBC 3.54 X 10*6/uL (4.10-5.20); RDW 13.9 % (11.5-14.5); WBC 10.63 X 10*3/uL (4.50-10.00)
--- NOTE | 2022-02-26 11:22 | P.PN ---
Subjective Progress Note Date: 02/26/22 Rose Lakhani, is a 71-year-old female who presented to [facility] emergency room with a chief complaint of facial erythema and tenderness, patient's symptoms started about 3 weeks ago with a pimple on her [place], she tried to open it up at home, she had erythema spreading in the lower jaw area, she was seen in the office and was given a course of oral Bactrim and local Mupirocin cream, symptoms initially improved however patient had worsening erythema with a new area of erythema on the bridge of her nose, she was seen in an outside emergency room and was given Motrin and referred back to our office, she was seen in the office on 02/24/2022. Patient has facial cellulitis likely related to MRSA, with worsening erythema and spreading cellulitis despite course of oral Bactrim, at that point patient was sent to emergency room for IV antibiotics, she was started on IV vancomycin in the emergency room and developed skin rash possibly due to ALLERGIC reaction, IV vancomycin was disc ontinued and infectious disease consultation was requested. She was evaluated in the emergency room vital examination on presentation revealed a temperature of 98.2 pulse 84 respirations 17 blood pressure 120/77 pulse ox 96% on room air Laboratory data revealed a white blood count of 8.6 hemoglobin 12.7 platelet count 343 sodium 142 potassium 3.4 chloride 107 CO2 23 BUN 15 creatinine 0.58 Patient was admitted to medical floor for further evaluation and treatment. Past medical history is significant for history of hypertension, hyperlipidemia, hypothyroidism, history of osteoarthritis, history of osteoporosis, history of depression with anxiety disorder and panic disorder. On review of systems patient is alert and oriented 3 in no apparent distress she is complaining of pain in the area of erythema on her face, she is also complaining of back pain which is chronic for her, otherwise she denies any complaints, there is no fever or chills no headache or dizziness no chest pain no shortness of breath no palpitation no cough no nausea or vomiting no abdominal pain no diarrhea no blood in the stools no burning with urination no frequency or urgency and no hematuria, there is no weakness or numbness in any of the extremities no change in vision speech or gait. On 02/26/2022 patient's alert and oriented 3. Facial cellulitis has significantly improved patient has remained on daptomycin. Patient still having some increase jaw pain. Did discuss with infectious disease services like he patient another 24-hour's to monitor for culture growth. At this time patient denies chest pain or shortness of breath. Patient denies nausea vomiting or diarrhea. Patient denies any urinary burning or frequency Objective - Vital Signs Vital signs: Vital Signs Temp 98.0 F 02/26/22 07:34 Pulse 96 02/26/22 07:34 Resp 18 02/26/22 07:34 BP 133/74 02/26/22 07:34 Pulse Ox 96 02/26/22 07:34 Intake & Output 02/25/22 02/26/22 02/26/22 18:59 06:59 18:59 Intake Total 480 118 Balance 480 118 Intake: Oral 480 118 Other: Voiding Method Toilet # Voids 1 1 - Exam In general patient is alert and oriented x 3 in no distress HEENT head normocephalic and atraumatic Neck is supple no JVD no goiter no lymphadenopathy no carotid bruit Chest examination is clear to auscultation no crackles no wheezing Cardiac exam reveals regular heart sounds S1 and S2 no gallops no murmurs Abdomen is soft nontender no organomegaly with normal bowel sounds Extremity exam reveals no edema no cyanosis or clubbing Skin exam reveals erythema and tenderness on the bridge of the nose and on the lower [place]antiago area Neurological examination reveals no gross focal deficits - Labs CBC & Chem 7: 02/26/22 06:39 02/24/22 15:30 Labs: Abnormal Lab Results - Last 24 Hours (Table) 02/25/22 02/26/22 Range/Units 15:17 06:39 WBC 10.63 H (4.50-10.00) X 10*3/uL RBC 3.54 L (4.10-5.20) X 10*6/uL Hgb 10.4 L (12.0-15.0) g/dL Hct 34.3 L (37.2-46.3) % MCHC 30.3 L (32.0-37.0) g/dL Urine Protein Trace H (Negative) Ur Leukocyte Esterase Trace H (Negative) Urine Mucus Moderate H (None) /hpf Microbiology - Last 24 Hours (Table) 02/25/22 01:00 Gram Stain - Preliminary Face Wound Culture - Preliminary 02/24/22 15:20 Blood Culture - Preliminary Blood No Growth after 24 hours Assessment and Plan Plan: Facial cellulitis, failed outpatient therapy with oral Bactrim, and local Mupirocin. Underlying history of hypertension Underlying history of hyperlipidemia Underlying history of hypothyroidism Underlying history of migraine headache Underlying history of osteoarthritis Underlying history of depression, bipolar disorder, and anxiety disorder Underlying history of osteoporosis ALLERGIC reaction to IV vancomycin in the emergency room on presentation At this time patient is admitted to medical floor She was started on IV daptomycin by Dr. Sanders Wound culture were obtained Home medications reviewed and reordered Patient started on subcu Lovenox for DVT prophylaxis and oral Protonix for GI prophylaxis
[2022-02-26 18:57] LABS: ALT 11 U/L (8-44); AST 15 U/L (13-35); African American GFR (CKD) 100.2 (60.0-200.0); Albumin 3.8 g/dL (3.8-4.9); Albumin/Globulin Ratio 2.15 (1.60-3.17); Alkaline Phosphatase 76 U/L (41-126); BUN/Creat Ratio 28.53 Ratio (12.00-20.00); Carbon Dioxide 21.8 mmol/L (20.0-27.5); Chloride 108 mmol/L (96-109); Globulin 1.8 g/dL (1.6-3.3); Glucose 95 mg/dL (70-110); Non-African American GFR(CKD) 86.4 (60.0-200.0); Potassium 3.8 mmol/L (3.5-5.5); Sodium 146 mmol/L (135-145); Total Bilirubin <0.15 mg/dL (0.30-1.20); Total Protein 5.6 g/dL (6.2-8.2)
[2022-02-26] MEDS: diphenhydrAMINE 25 MG CAP PO SCH (20:27)
--- NOTE | 2022-02-27 00:32 | P.PN ---
Subjective Progress Note Date: 02/25/22 Principal diagnosis: Chin/facial cellulitis Patient is a 71-year-old female, presented to the hospital with increasing pain and swelling to the chin area concerning for facial cellulitis failing outpatient oral antibiotic therapy. On today's evaluation that is 02/25/2022, the patient denies having any fevers or any chills, overall pain and discomfort to the chin area has decreased intensity currently do not have any drainage, patient denies having any chest pain shortness of breath or cough no abdominal pain or diarrhea Objective - Vital Signs Vital signs: Vital Signs Temp 98.2 F 02/25/22 07:30 Pulse 84 02/25/22 07:30 Resp 17 02/25/22 07:30 BP 120/77 02/25/22 07:30 Pulse Ox 96 02/25/22 07:30 Intake & Output 02/24/22 02/25/22 02/25/22 18:59 06:59 18:59 Intake Total 240 240 Balance 240 240 Weight 58.967 kg 58.967 kg Intake: Oral 240 240 Other: Voiding Method Toilet Toilet - Exam GENERAL DESCRIPTION: An elderly female lying in bed in no distress HEENT: Chin swelling and redness has slightly decreased on drainage RESPIRATORY SYSTEM: Unlabored breathing , decreased breath sounds at bases HEART: S1 S2 regular rate and rhythm , ABDOMEN: Soft , no tenderness EXTREMITIES: No edema feet - Labs CBC & Chem 7: 02/26/22 06:39 02/26/22 06:39 Labs: Abnormal Lab Results - Last 24 Hours (Table) 02/24/22 Range/Units 15:30 Potassium 3.4 L (3.5-5.1) mmol/L Glucose 103 H (74-99) mg/dL Assessment and Plan (1) Cellulitis, face Current Visit: Yes Status: Acute Code(s): L03.211 - CELLULITIS OF FACE SNOMED Code(s): 888114140 Plan: 1-patient presented to hospital with chin area swelling and redness that started as a pimple and failing outpatient oral Bactrim DS therapy high clinical suspicious for possible staphylococcal infection, patient is currently waiting for the cultures to finalize continue the daptomycin Time with Patient: Less than 30
--- NOTE | 2022-02-27 00:33 | P.PN ---
Subjective Progress Note Date: 02/26/22 Principal diagnosis: Chin/facial cellulitis Patient is a 71-year-old female, presented to the hospital with increasing pain and swelling to the chin area concerning for facial cellulitis failing outpatient oral antibiotic therapy. On today's evaluation that is 02/26/2022, the patient remains to be afebrile, the patient pain and discomfort to the chin area has decreased intensity currently do not have any drainage, patient denies having any chest pain shortness of breath or cough no abdominal pain or diarrhea Objective - Vital Signs Vital signs: Vital Signs Temp 98.4 F 02/26/22 14:00 Pulse 76 02/26/22 14:00 Resp 18 02/26/22 14:00 BP 116/69 02/26/22 14:00 Pulse Ox 94 L 02/26/22 14:00 Intake & Output 02/25/22 02/26/22 02/26/22 18:59 06:59 18:59 Intake Total 480 118 Balance 480 118 Intake: Oral 480 118 Other: Voiding Method Toilet # Voids 1 1 - Exam GENERAL DESCRIPTION: An elderly female lying in bed in no distress HEENT: Chin swelling and redness has slightly decreased on drainage RESPIRATORY SYSTEM: Unlabored breathing , decreased breath sounds at bases HEART: S1 S2 regular rate and rhythm , ABDOMEN: Soft , no tenderness EXTREMITIES: No edema feet - Labs CBC & Chem 7: 02/26/22 06:39 02/26/22 06:39 Labs: Abnormal Lab Results - Last 24 Hours (Table) 02/25/22 02/26/22 Range/Units 15:17 06:39 WBC 10.63 H (4.50-10.00) X 10*3/uL RBC 3.54 L (4.10-5.20) X 10*6/uL Hgb 10.4 L (12.0-15.0) g/dL Hct 34.3 L (37.2-46.3) % MCHC 30.3 L (32.0-37.0) g/dL Urine Protein Trace H (Negative) Ur Leukocyte Esterase Trace H (Negative) Urine Mucus Moderate H (None) /hpf Microbiology - Last 24 Hours (Table) 02/25/22 01:00 Gram Stain - Preliminary Face Wound Culture - Preliminary 02/24/22 15:20 Blood Culture - Preliminary Blood No Growth after 24 hours Assessment and Plan (1) Cellulitis, face Current Visit: Yes Status: Acute Code(s): L03.211 - CELLULITIS OF FACE SNOMED Code(s): 394660490 Plan: 1-patient presented to hospital with chin area swelling and redness that started as a pimple and failing outpatient oral Bactrim DS therapy high clinical suspicious for possible staphylococcal infection, patient cultures are currently pending, patient to continue with the daptomycin with a discharge antibiotics on the basis of cultures continue supportive care Time with Patient: Less than 30
[2022-02-27] MEDS: MORPHINE SULFATE 2 MG/ML SYRINGE IVP PRN (01:00)
[2022-02-27] MEDS: LEVOTHYROXINE 25 MCG TAB PO SCH (05:55)
[2022-02-27] MEDS: HYDROcodone/APAP 10-325MG 1 EACH TAB PO PRN ×3 (05:55→23:05)
[2022-02-27] MEDS: VERAPAMIL SR 180 MG TABLET.ER PO SCH (09:28)
[2022-02-27] MEDS: ALPRAZolam 0.5 MG TAB PO SCH ×2 (09:28→21:19)
[2022-02-27] MEDS: CITALOPRAM HYDROBROMIDE 20 MG TAB PO SCH (09:28)
[2022-02-27] MEDS: CALCIUM CARB-VIT D 500 MG-5 MCG TAB PO SCH (09:28)
[2022-02-27] MEDS: MUPIROCIN 2% OINT 22 GM TUBE TOPICAL SCH ×2 (09:29→21:19)
[2022-02-27] MEDS: ENOXAPARIN 40 MG/0.4 ML SYRINGE SQ SCH (09:29)
[2022-02-27] MEDS: PANTOPRAZOLE 40 MG TABLET PO SCH (09:29)
[2022-02-27] MEDS: IBUPROFEN 800 MG TAB PO PRN ×2 (09:36→18:45)
[2022-02-27 10:09] LABS: Basophils # (A) 0.06 X 10*3/uL (0.00-0.10); Basophils % (A) 0.7 %; Eosinophils # (A) 0.22 X 10*3/uL (0.04-0.35); Eosinophils % (A) 2.6 %; HCT 35.5 % (37.2-46.3); HGB 10.6 g/dL (12.0-15.0); Immature Grans, Automated 0.2 %; Lymphocytes # (A) 3.31 X 10*3/uL (0.90-5.00); Lymphocytes % (A) 38.5 %; MCH 29.6 pg (27.0-32.0); MCHC 29.9 g/dL (32.0-37.0); MCV 99.2 fL (80.0-97.0); Mean Platelet Volume 11.2 fL (9.5-12.2); Monocytes # (A) 0.83 X 10*3/uL (0.20-1.00); Monocytes % (A) 9.7 %; NRBC Per 100 WBC 0 /100 WBCS (0.0-0.0); Neutrophils # (A) 4.15 X 10*3/uL (1.80-7.70); Neutrophils % (A) 48.3 %; Platelet Count 265 X 10*3/uL (140-440); RBC 3.58 X 10*6/uL (4.10-5.20); WBC 8.59 X 10*3/uL (4.50-10.00)
[2022-02-27 10:23] LABS: ALT 12 U/L (8-44); AST 14 U/L (13-35); African American GFR (CKD) 106.4 (60.0-200.0); Albumin 3.8 g/dL (3.8-4.9); Alkaline Phosphatase 79 U/L (41-126); Blood Urea Nitrogen 17.2 mg/dL (9.0-27.0); Calcium 9.3 mg/dL (8.7-10.3); Carbon Dioxide 27.4 mmol/L (20.0-27.5); Chloride 104 mmol/L (96-109); Glucose 96 mg/dL (70-110); Non-African American GFR(CKD) 91.8 (60.0-200.0); Potassium 3.8 mmol/L (3.5-5.5); Sodium 141 mmol/L (135-145); Total Bilirubin <0.15 mg/dL (0.30-1.20); Total Protein 5.8 g/dL (6.2-8.2)
--- NOTE | 2022-02-27 17:47 | P.PN ---
Subjective Progress Note Date: 02/27/22 Rose Lakhani, is a 71-year-old female who presented to [facility] emergency room with a chief complaint of facial erythema and tenderness, patient's symptoms started about 3 weeks ago with a pimple on her [place], she tried to open it up at home, she had erythema spreading in the lower jaw area, she was seen in the office and was given a course of oral Bactrim and local Mupirocin cream, symptoms initially improved however patient had worsening erythema with a new area of erythema on the bridge of her nose, she was seen in an outside emergency room and was given Motrin and referred back to our office, she was seen in the office on 02/24/2022. Patient has facial cellulitis likely related to MRSA, with worsening erythema and spreading cellulitis despite course of oral Bactrim, at that point patient was sent to emergency room for IV antibiotics, she was started on IV vancomycin in the emergency room and developed skin rash possibly due to ALLERGIC reaction, IV vancomycin was disc ontinued and infectious disease consultation was requested. She was evaluated in the emergency room vital examination on presentation revealed a temperature of 98.2 pulse 84 respirations 17 blood pressure 120/77 pulse ox 96% on room air Laboratory data revealed a white blood count of 8.6 hemoglobin 12.7 platelet count 343 sodium 142 potassium 3.4 chloride 107 CO2 23 BUN 15 creatinine 0.58 Patient was admitted to medical floor for further evaluation and treatment. Past medical history is significant for history of hypertension, hyperlipidemia, hypothyroidism, history of osteoarthritis, history of osteoporosis, history of depression with anxiety disorder and panic disorder. On review of systems patient is alert and oriented 3 in no apparent distress she is complaining of pain in the area of erythema on her face, she is also complaining of back pain which is chronic for her, otherwise she denies any complaints, there is no fever or chills no headache or dizziness no chest pain no shortness of breath no palpitation no cough no nausea or vomiting no abdominal pain no diarrhea no blood in the stools no burning with urination no frequency or urgency and no hematuria, there is no weakness or numbness in any of the extremities no change in vision speech or gait. On 02/26/2022 patient's alert and oriented 3. Facial cellulitis has significantly improved patient has remained on daptomycin. Patient still having some increase jaw pain. Did discuss with infectious disease services like he patient another 24-hour's to monitor for culture growth. At this time patient denies chest pain or shortness of breath. Patient denies nausea vomiting or diarrhea. Patient denies any urinary burning or frequency On 02/27/2022 patient was seen and examined on the medical floor she is alert and oriented 3 in no apparent distress she is still complaining of pain over the lower jaw, skin erythema and induration has improved since yesterday, otherwise patient denies any complaints there is no fever or chills no headache or dizziness no chest pain no shortness of breath no cough no nausea or vomiting no abdominal pain no diarrhea and no urinary symptoms. Patient is maintained on IV daptomycin, awaiting culture results and further recommendation from infectious disease Objective - Vital Signs Vital signs: Vital Signs Temp 98.2 F 02/27/22 07:39 Pulse 64 02/27/22 07:39 Resp 19 02/27/22 07:39 BP 119/61 02/27/22 07:39 Pulse Ox 97 02/27/22 07:39 Intake & Output 02/26/22 02/27/22 02/27/22 18:59 06:59 18:59 Intake Total 358 180 Balance 358 180 Intake: Oral 358 180 Other: # Voids 1 1 - Exam In general patient is alert and oriented x 3 in no distress HEENT head normocephalic and atraumatic Neck is supple no JVD no goiter no lymphadenopathy no carotid bruit Chest examination is clear to auscultation no crackles no wheezing Cardiac exam reveals regular heart sounds S1 and S2 no gallops no murmurs Abdomen is soft nontender no organomegaly with normal bowel sounds Extremity exam reveals no edema no cyanosis or clubbing Skin exam reveals erythema and tenderness on the bridge of the nose and on the lower [place]antiago area Neurological examination reveals no gross focal deficits - Labs CBC & Chem 7: 02/27/22 06:07 02/27/22 06:07 Labs: Abnormal Lab Results - Last 24 Hours (Table) 02/26/22 02/27/22 02/27/22 Range/Units 06:39 06:07 06:07 RBC 3.58 L (4.10-5.20) X 10*6/uL Hgb 10.6 L (12.0-15.0) g/dL Hct 35.5 L (37.2-46.3) % MCV 99.2 H (80.0-97.0) fL MCHC 29.9 L (32.0-37.0) g/dL Sodium 146 H (135-145) mmol/L Anion Gap 9.50 L (10.00-18.00) mmol/L BUN/Creatinine Ratio 28.53 H 29.40 H (12.00-20.00) Ratio Total Bilirubin <0.15 L <0.15 L (0.30-1.20) mg/dL Total Protein 5.6 L 5.8 L (6.2-8.2) g/dL Microbiology - Last 24 Hours (Table) 02/25/22 01:00 Gram Stain - Final Face Wound Culture - Final 02/24/22 15:20 Blood Culture - Preliminary Blood No Growth after 48 hours Assessment and Plan Plan: Facial cellulitis, failed outpatient therapy with oral Bactrim, and local Mupirocin. Underlying history of hypertension Underlying history of hyperlipidemia Underlying history of hypothyroidism Underlying history of migraine headache Underlying history of osteoarthritis Underlying history of depression, bipolar disorder, and anxiety disorder Underlying history of osteoporosis ALLERGIC reaction to IV vancomycin in the emergency room on presentation At this time patient is admitted to medical floor She was started on IV daptomycin by Dr. Sanders Wound culture were obtained Home medications reviewed and reordered Patient started on subcu Lovenox for DVT prophylaxis and oral Protonix for GI prophylaxis
[2022-02-27] MEDS: diphenhydrAMINE 25 MG CAP PO SCH (21:18)
--- NOTE | 2022-02-27 22:29 | P.PN ---
Subjective Progress Note Date: 02/27/22 Principal diagnosis: Chin/facial cellulitis Patient is a 71-year-old female, presented to the hospital with increasing pain and swelling to the chin area concerning for facial cellulitis failing outpatient oral antibiotic therapy. On today's evaluation that is 02/27/2022, the patient denies any fever or chills, the patient is still complaining of pain and discomfort to the chin area however the swelling and redness has decreased intensity currently do not have any drainage, patient denies having any chest pain shortness of breath or cough no abdominal pain or diarrhea Objective - Vital Signs Vital signs: Vital Signs Temp 98.2 F 02/27/22 07:39 Pulse 64 02/27/22 07:39 Resp 19 02/27/22 07:39 BP 119/61 02/27/22 07:39 Pulse Ox 97 02/27/22 07:39 Intake & Output 02/26/22 02/27/22 02/27/22 18:59 06:59 18:59 Intake Total 358 180 Balance 358 180 Intake: Oral 358 180 Other: # Voids 1 1 - Exam GENERAL DESCRIPTION: An elderly female lying in bed in no distress HEENT: Chin swelling and redness has slightly decreased on drainage RESPIRATORY SYSTEM: Unlabored breathing , decreased breath sounds at bases HEART: S1 S2 regular rate and rhythm , ABDOMEN: Soft , no tenderness EXTREMITIES: No edema feet - Labs CBC & Chem 7: 02/27/22 06:07 02/27/22 06:07 Labs: Abnormal Lab Results - Last 24 Hours (Table) 02/26/22 02/27/22 02/27/22 Range/Units 06:39 06:07 06:07 RBC 3.58 L (4.10-5.20) X 10*6/uL Hgb 10.6 L (12.0-15.0) g/dL Hct 35.5 L (37.2-46.3) % MCV 99.2 H (80.0-97.0) fL MCHC 29.9 L (32.0-37.0) g/dL Sodium 146 H (135-145) mmol/L Anion Gap 9.50 L (10.00-18.00) mmol/L BUN/Creatinine Ratio 28.53 H 29.40 H (12.00-20.00) Ratio Total Bilirubin <0.15 L <0.15 L (0.30-1.20) mg/dL Total Protein 5.6 L 5.8 L (6.2-8.2) g/dL Microbiology - Last 24 Hours (Table) 02/25/22 01:00 Gram Stain - Final Face Wound Culture - Final 02/24/22 15:20 Blood Culture - Preliminary Blood No Growth after 48 hours Assessment and Plan (1) Cellulitis, face Current Visit: Yes Status: Acute Code(s): L03.211 - CELLULITIS OF FACE SNOMED Code(s): 575386086 Plan: 1-patient presented to hospital with chin area swelling and redness that started as a pimple and failing outpatient oral Bactrim DS therapy high clinical suspicious for possible staphylococcal infection, patient cultures has been negative, patient clinically improved with the daptomycin and will finish therapy with oral doxycycline prescription was sent to the pharmacy Time with Patient: Less than 30
[2022-02-28] MEDS: HYDROcodone/APAP 10-325MG 1 EACH TAB PO PRN (05:36)
[2022-02-28] MEDS: LEVOTHYROXINE 25 MCG TAB PO SCH (05:36)
[2022-02-28] MEDS: MUPIROCIN 2% OINT 22 GM TUBE TOPICAL SCH (07:27)
[2022-02-28] MEDS: ENOXAPARIN 40 MG/0.4 ML SYRINGE SQ SCH (07:27)
[2022-02-28] MEDS: CITALOPRAM HYDROBROMIDE 20 MG TAB PO SCH (07:27)
[2022-02-28] MEDS: ALPRAZolam 0.5 MG TAB PO SCH (07:28)
[2022-02-28] MEDS: CALCIUM CARB-VIT D 500 MG-5 MCG TAB PO SCH (07:28)
[2022-02-28] MEDS: PANTOPRAZOLE 40 MG TABLET PO SCH (07:28)
[2022-02-28] MEDS: IBUPROFEN 800 MG TAB PO PRN (07:32)
[2022-02-28 07:35] VITALS: BP 111/73; PULSE 72; RESP 16; TEMP 98.1
[2022-02-28] MEDS: VERAPAMIL SR 180 MG TABLET.ER PO SCH (07:35)
[2022-02-28 09:29] LABS: Basophils # (A) 0.05 X 10*3/uL (0.00-0.10); Basophils % (A) 0.7 %; Eosinophils # (A) 0.19 X 10*3/uL (0.04-0.35); Eosinophils % (A) 2.7 %; HCT 33.5 % (37.2-46.3); HGB 10.2 g/dL (12.0-15.0); Immature Grans, Automated 0.3 %; Lymphocytes # (A) 2.64 X 10*3/uL (0.90-5.00); Lymphocytes % (A) 38.1 %; MCH 29.7 pg (27.0-32.0); MCHC 30.4 g/dL (32.0-37.0); MCV 97.4 fL (80.0-97.0); Mean Platelet Volume 11.3 fL (9.5-12.2); Monocytes # (A) 0.53 X 10*3/uL (0.20-1.00); Monocytes % (A) 7.6 %; NRBC Per 100 WBC 0 /100 WBCS (0.0-0.0); Neutrophils % (A) 50.6 %; Platelet Count 253 X 10*3/uL (140-440); RBC 3.44 X 10*6/uL (4.10-5.20); RDW 14.1 % (11.5-14.5); WBC 6.93 X 10*3/uL (4.50-10.00)
[2022-02-28 09:54] LABS: ALT 12 U/L (8-44); AST 12 U/L (13-35); African American GFR (CKD) 87.6 (60.0-200.0); Albumin 3.6 g/dL (3.8-4.9); Albumin/Globulin Ratio 1.97 (1.60-3.17); Alkaline Phosphatase 81 U/L (41-126); BUN/Creat Ratio 27.08 Ratio (12.00-20.00); Blood Urea Nitrogen 21.2 mg/dL (9.0-27.0); Calcium 9.1 mg/dL (8.7-10.3); Carbon Dioxide 26.4 mmol/L (20.0-27.5); Chloride 106 mmol/L (96-109); Globulin 1.8 g/dL (1.6-3.3); Glucose 118 mg/dL (70-110); Non-African American GFR(CKD) 75.6 (60.0-200.0); Potassium 3.8 mmol/L (3.5-5.5); Sodium 143 mmol/L (135-145); Total Bilirubin <0.15 mg/dL (0.30-1.20); Total Protein 5.4 g/dL (6.2-8.2)
== END 2022-02-28 13:15 | disposition home or self-care (01) | DRG 603 ==
LOC: EC 11:49 → 6NMEDSUR 16:13 → OBSVTOIN 02-26 08:27
PROVIDERS: ADMIT Internal Medicine; ATTEND Internal Medicine
DX: L03.211 Cellulitis of face (principal); J44.9 Chronic obstructive pulmonary disease, unspecified; F31.9 Bipolar disorder, unspecified; L27.0 Generalized skin eruption due to drugs and medicaments taken internally; B95.62 Methicillin resistant Staphylococcus aureus infection as the cause of diseases classified elsewhere; T36.8X5A Adverse effect of other systemic antibiotics, initial encounter; E03.9 Hypothyroidism, unspecified; I10 Essential (primary) hypertension; E78.5 Hyperlipidemia, unspecified; G43.909 Migraine, unspecified, not intractable, without status migrainosus; F41.0 Panic disorder [episodic paroxysmal anxiety]; M19.90 Unspecified osteoarthritis, unspecified site; M81.0 Age-related osteoporosis without current pathological fracture; Z88.1 Allergy status to other antibiotic agents; Z79.83 Long term (current) use of bisphosphonates; Z79.890 Hormone replacement therapy; Z79.891 Long term (current) use of opiate analgesic; Z83.3 Family history of diabetes mellitus; Z82.3 Family history of stroke; Z82.49 Family history of ischemic heart disease and other diseases of the circulatory system; X58.XXXA Exposure to other specified factors, initial encounter; Z79.899 Other long term (current) drug therapy
CPT/HCPCS: 36415; 80053; 81001; 83605; 85025; 87040; 87070; 87205; 96365; 96366; 96375; 99284

== ENCOUNTER → 2022-05-30 | Outpatient (CLI) | payer MEDICARE, OTHER ==
--- NOTE | 2022-05-30 14:33 | MR ---
EXAMINATION TYPE: MR angio head wo con DATE OF EXAM: 05/30/2022 COMPARISON: CT facial bones 03/21/2022 HISTORY: Abnormal findings on DI of skull TECHNIQUE: Time of flight images focusing on the [place] of [place] were performed without contrast. Th ree-dimensional reconstructions performed on an alternate workstation and reviewed. FINDINGS: The area of prominence in the left middle cerebral artery does not show aneurysm. The anter ior and posterior circulations are intact. Hypoplastic A1 segment of the right internal carotid arter y is noted left vertebral artery is dominant. There is no evident dissection, embolus, other stenosis or embolus. IMPRESSION: No evident aneurysm.
== END | disposition home or self-care (01) ==
LOC: RADMRIMAIN 10:18
PROVIDERS: ATTEND Internal Medicine
DX: R93.0 Abnormal findings on diagnostic imaging of skull and head, not elsewhere classified (principal)
CPT/HCPCS: 70544

== ENCOUNTER → 2022-10-19 | Outpatient (CLI) | payer MEDICARE, OTHER ==
--- NOTE | 2022-10-19 12:17 | MR ---
EXAMINATION TYPE: MR lumbar spine wo con DATE OF EXAM: 10/19/2022 11:45 AM COMPARISON: None. CLINICAL INDICATION:Female, 72 years old with history of [id number]; TECHNIQUE: Multi planar, multi sequence imaging was performed utilizing: T1-weighted, T2-weighted, a nd turbo inversion recovery imaging of the lumbar spine. IV Contrast: None. FINDINGS: Alignment: The lumbar vertebral bodies have preserved heights. Grade 1 anterior listhesis of L4 and L 5 and L5 and S1. Cord: The conus medullaris and the distal spinal cord appear unremarkable with regards to their signa l intensity and morphology. Bones/Discs: Altered level disc degeneration changes. Multilevel degenerative disc disease is noted a nd most pronounced at the L3-L5. L1-L2: Disc bulge and facet joint arthropathy result in mild spinal canal and moderate bilateral neur al foraminal stenosis. L2-L3: Disc bulge and facet joint arthropathy result in mild spinal canal and severe right and modera te left neural foraminal stenosis. L3-L4: No evidence of significant spinal canal stenosis. Facet joint arthropathy with mild bilateral neural foraminal stenosis. L4-L5: Disc uncovering and facet joint arthropathy result in mild spinal canal and moderate mild left neural foraminal stenosis. L5-S1: Disc uncovering and facet joint arthropathy result in mild spinal canal and moderate right mil d left neural foraminal stenosis. Other findings: Atherosclerosis of the arterial vasculature. Left renal cyst. Mild ectasia of the pr oximal abdominal aorta. IMPRESSION: 1. No definitive evidence of disc herniation or significant spinal canal stenosis. 2. Multilevel disc degeneration with associated osteoarthritic changes worse at L2-L3 with severe ri ght neural foraminal stenosis. Additional moderate neural foraminal stenosis at L4-L5 and L5-S1.
== END | disposition home or self-care (01) ==
LOC: RADMRIMAIN 11:00
PROVIDERS: ATTEND Physical Medicine & Rehabilitation Pain Medicine
DX: M48.061 Spinal stenosis, lumbar region without neurogenic claudication (principal); M51.36 Other intervertebral disc degeneration, lumbar region; M47.816 Spondylosis without myelopathy or radiculopathy, lumbar region; M99.73 Connective tissue and disc stenosis of intervertebral foramina of lumbar region; R20.8 Other disturbances of skin sensation
CPT/HCPCS: 72148

== ENCOUNTER → 2023-06-26 | Outpatient (CLI) | payer MEDICARE, OTHER ==
--- NOTE | 2023-06-26 10:40 | CT ---
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 Coronal and sagittal reconstr uctions performed. CT DLP: 451 mGycm Automated exposure control for dose reduction was used. FINDINGS: Moderate atherosclerotic calcifications visualized distal abdominal aorta. There is moderate stool bu rden. Normal appendix. Sigmoid diverticulosis without pericolonic inflammatory change. Bladder partially distended. Numerous pelvic phleboliths. Uterus is retroverted. Both ovaries are vis ualized. No abnormal fluid collection in the pelvis or pelvic lymphadenopathy seen. Hypertrophic facet arthropathy lower lumbar spine with grade 1 anterolisthesis both L4-L5 and L5-S1. Changes result in at least moderate neural foraminal stenosis right greater than left at L5-S1. Patient is status post right total hip arthroplasty. Both acetabular cup and femoral stem components appear well seated. No periprosthetic fracture is seen. Corticated density measuring 2.3 cm anterior to the greater trochanter could represent postoperative bony debris or heterotopic ossification relating to the surgery. Streak and beam hardening artifact from the arthroplasty limits visualization of the right-sided scia tic nerve at these levels. No evident mass lesion along the course of the left sciatic nerve. Mild degenerative changes left hip. No acute fracture, subluxation, or dislocation is seen. IMPRESSION: 1.. Status post right hip total arthroplasty. Corticated densities anterior to the right greater troc hanter measuring up to 2.3 cm could represent postoperative bony debris or heterotopic ossification r elating to the surgery. Otherwise, no evident complication. 2. Limited visualization of the right sciatic nerve at the level of the hip due to prominent metal ar tifact. No evident mass lesion along the course of the left sciatic nerve. 3. Mild left hip OA. Advanced hypertrophic facet arthropathy lumbar spine with degenerative grade 1 a nterolisthesis L4-L5 and L5-S1. At least moderate right greater than left neuroforaminal stenosis at L5-S1. 4. Sigmoid diverticulosis without acute diverticulitis.
== END | disposition home or self-care (01) ==
LOC: RADCTMAIN 07:40
PROVIDERS: ATTEND Family Medicine
DX: M16.12 Unilateral primary osteoarthritis, left hip (principal); K57.30 Diverticulosis of large intestine without perforation or abscess without bleeding; G57.03 Lesion of sciatic nerve, bilateral lower limbs; M43.17 Spondylolisthesis, lumbosacral region; M47.817 Spondylosis without myelopathy or radiculopathy, lumbosacral region; M99.73 Connective tissue and disc stenosis of intervertebral foramina of lumbar region; Z96.641 Presence of right artificial hip joint
CPT/HCPCS: 72192

== ENCOUNTER 2024-02-29 12:10 | Inpatient (IN) | payer MEDICARE, OTHER ==
--- NOTE | 2024-02-29 13:36 | ED ---
Weakness HPI - General Source: patient, RN notes reviewed, old records reviewed Mode of arrival: wheelchair Limitations: no limitations <Jose Byrnes - Last Filed: 02/29/24 13:35> <Ang Stout - Last Filed: 02/29/24 19:53> - General Chief complaint: Nausea/Vomiting/Diarrhea Stated complaint: Diarrhea,Car leg. pain Time Seen by Provider: 02/29/24 13:30 - History of Present Illness Initial comments: 73 female to the ED for severe weakness, loss bowels and urine. Patient with difficulty walking, feeling weak and symptoms progressing for the past 2 days. No prior history of the same, no fevers, no trauma, no current significant pain. (Jose Byrnes) Patient is a 73-year-old female who presents emergency department complaining of diarrhea, generalized weakness, ongoing for 2 days. States she has a history of a bad back, as well as COPD, fibromyalgia, hypertension. States she seems to be having frequent diarrhea. States she has a hard time controlling it and feels like she has no sphincter tone. This is new over the last 2 days. Also endorses lower extremity weakness. Originally seen as a quick note. (Ang Stout) - Related Data Home Medications Medication Instructions Recorded Confirmed ALPRAZolam [Xanax] 0.5 mg PO TID 11/11/19 02/29/24 Levothyroxine Sodium [Synthroid] 25 mcg PO DAILY 02/24/22 02/29/24 SUMAtriptan succinate [Imitrex] 50 mg PO DAILY PRN 02/24/22 02/29/24 Verapamil HCl [Verapamil ER] 180 mg PO DAILY 02/24/22 02/29/24 ARIPiprazole [Abilify] 5 mg PO DAILY 02/29/24 02/29/24 Albuterol Inhaler [Ventolin Hfa 1 - 2 puff INHALATION RT-Q6H PRN 02/29/24 02/29/24 Inhaler] Ascorbic Acid [Vitamin C] 500 mg PO DAILY 02/29/24 02/29/24 Atomoxetine HCl [Strattera] 25 mg PO DAILY 02/29/24 02/29/24 Cyclobenzaprine [Flexeril] 5 mg PO TID PRN 02/29/24 02/29/24 FLUoxetine HCL [PROzac] 20 mg PO DAILY 02/29/24 02/29/24 Naproxen [EC-Naproxen] 375 mg PO BID PRN 02/29/24 02/29/24 Pregabalin [Lyrica] 75 mg PO TID 02/29/24 02/29/24 Rosuvastatin [Crestor] 10 mg PO DAILY 02/29/24 02/29/24 Topiramate 25 mg PO DAILY 02/29/24 02/29/24 Tretinoin/Emollient Base 1 applic TOPICAL DAILY 02/29/24 02/29/24 [Tretinoin 0.05% Emollient Crm] buPROPion XL [Wellbutrin XL] 300 mg PO DAILY 02/29/24 02/29/24 hydroCHLOROthiazide [Hydrodiuril] 25 mg PO DAILY 02/29/24 02/29/24 oxyCODONE-APAP 5-325MG [Percocet 1 tab PO TID 02/29/24 02/29/24 5-325 mg] Allergies Allergy/AdvReac Type Severity Reaction Status Date / Time vancomycin Allergy Rash/Hives Verified 02/29/24 15:32 Review of Systems ROS Other: All systems not noted in ROS Statement are negative. <Jose Byrnes - Last Filed: 02/29/24 13:35> ROS Other: All systems not noted in ROS Statement are negative. <Ang Stout - Last Filed: 02/29/24 19:53> ROS Statement: Those systems with pertinent positive or pertinent negative responses have been documented in the HPI. Review of Systems: CONST: Denies fever EYES: Denies blurry vision ENT: Denies nasal congestion C/V: Denies Chest pain RESP: Denies shortness of breath GI: Endorses abdominal pain with diarrhea. : Denies dysuria SKIN: Denies rash. MSK: Denies joint pain. NEURO: Denies headache (Ang Stout) Past Medical History Past Medical History: Asthma, COPD, Fibromyalgia, Hyperlipidemia, Hypertension, Osteoarthritis (OA), Pneumonia, Renal Disease Additional Past Medical History / Comment(s): Pt recently admitted to [facility] on 02/26/22 with facial cellulitis and also had an allergic reaction to vancomycin. Other Hx: Bronchitis, migraines, chronic low back pain/L5 fracture, osteoporosis, nasal fractures/deviated septum, kidney stones, UTI. History of Any Multi-Drug Resistant Organisms: None Reported MDRO Source:: face Past Surgical History: Adenoidectomy, Breast Surgery, Orthopedic Surgery, Tonsillectomy Additional Past Surgical History / Comment(s): R total hip arthroplasty d/t avascular necrosis, L breast benign bx Past Anesthesia/Blood Transfusion Reactions: No Reported Reaction Past Psychological History: Anxiety, Bipolar, Depression, Panic Disorder Smoking Status: Former smoker Past Alcohol Use History: None Reported Past Drug Use History: None Reported - Past Family History Father Family Medical History: CVA/TIA, Diabetes Mellitus Additional Family Medical History / Comment(s): Father had a massive IA in his late 60s or early 70s Mother Family Medical History: Myocardial Infarction (IA) Additional Family Medical History / Comment(s): In her 70's had a heart attack <Jose Byrnes - Last Filed: 02/29/24 13:35> General Exam Limitations: no limitations General appearance: alert, in no apparent distress Head exam: Present: atraumatic, normocephalic, normal inspection Eye exam: Present: normal appearance, PERRL, EOMI. Absent: scleral icterus, conjunctival injection, periorbital swelling ENT exam: Present: normal exam, mucous membranes moist Neck exam: Present: normal inspection. Absent: tenderness, meningismus, lymphadenopathy Respiratory exam: Present: normal lung sounds bilaterally. Absent: respiratory distress, wheezes, rales, rhonchi, stridor Cardiovascular Exam: Present: regular rate, normal rhythm, normal heart sounds. Absent: systolic murmur, diastolic murmur, rubs, gallop, clicks GI/Abdominal exam: Present: soft, normal bowel sounds. Absent: distended, tenderness, guarding, rebound, rigid Extremities exam: Present: normal inspection, full ROM, normal capillary refill. Absent: tenderness, pedal edema, joint swelling, calf tenderness Back exam: Present: normal inspection Neurological exam: Present: alert, oriented X3, CN II-XII intact Psychiatric exam: Present: normal affect, normal mood Skin exam: Present: warm, dry, intact, normal color. Absent: rash <Jose Byrnes - Last Filed: 02/29/24 13:35> <Ang Stout - Last Filed: 02/29/24 19:53> - General Exam Comments Initial Comments: General: Appears in no acute distress. HEAD: Normal with no signs of head trauma. EYES: PERRLA, EOMI, conjunctiva normal, no discharge. ENT: Hearing grossly intact, normal oropharynx. RESPIRATORY: Clear breath sounds bilaterally. No wheezes, rales, or rhonchi. C/V: Regular rate and rhythm. S1 and S2 auscultated, peripheral pulses 2+ and intact throughout ABD: Abdomen is soft, nondistended. Tender palpation in the left lower quadrant.. Weak rectal tone. EXT: Normal range of motion, no obvious deformity SKIN: No rashes or lesions observed on exposed skin. NEURO: Alert and oriented x 4. Weakness in the bilateral lower extremities. No paresthesias on the inner thighs. (Ang Stout) Course <Jose Byrnes - Last Filed: 02/29/24 13:35> Vital Signs 02/29/24 12:44 Temperature 98.1 F Pulse Rate 104 H Respiratory 20 Rate Blood Pressure 111/75 O2 Sat by Pulse 94 L Oximetry - Reevaluation(s) Reevaluation #1: 02/29/24 13:36 QN completed by myself Dr Byrnes (Jose Byrnes) Medical Decision Making - Lab Data Result diagrams: 02/29/24 14:59 02/29/24 14:59 - EKG Data -: EKG Interpreted by Me <Ang Stout - Last Filed: 02/29/24 19:53> - Medical Decision Making Was pt. sent in by a medical professional or institution (, PA, [employer], urgent care, hospital, or prison...) When possible be specific @ -No Did you speak to anyone other than the patient for history (EMS, parent, family, police, friend...)? What history was obtained from this source @ -No Did you review nursing and triage notes (agree or disagree)? Why? @ -I reviewed and agree with nursing and triage notes Were old charts reviewed (outside hosp., previous admission, EMS record, old EKG, old radiological studies, urgent care reports/EKG's, prison records)? Report findings @ -No old charts were reviewed Differential Diagnosis (chest pain, altered mental status, abdominal pain women, abdominal pain men, vaginal bleeding, weakness, fever, dyspnea, syncope, headache, dizziness, GI bleed, back pain, seizure, CVA, palpatations, mental health, musculoskeletal)? @ -Differential Abdominal Pain Women: Appendicitis, Cholecystitis, diverticulosis, ischemic bowel, pancreatitis, hepatitis, UTI, gastroenteritis, AAA, incarcerated hernia, bowel obstruction, constipation, inflammatory bowel, hepatitis, peptic ulcer disease, splenic infarction, perforated viscus, vulvitis, ovarian torsion, PID, kidney stone, placenta abruption, this is not meant to be an all-inclusive list EKG interpreted by me (3pts min.). @ -As above X-rays interpreted by me (1pt min.). @ -None done CT interpreted by me (1pt min.). @ -CT abdomen pelvis reveals no obvious acute intra-abdominal process. Lumbar spine CT reveals disc bulging at the L4-L5 thecal sac as well as degenerative changes throughout. U/S interpreted by me (1pt. min.). @ -None done What testing was considered but not performed or refused? (CT, X-rays, U/S, labs)? Why? @ -None What meds were considered but not given or refused? Why? @ -None Did you discuss the management of the patient with other professionals (professionals i.e. , PA, [employer], lab, RT, psych nurse, high school social studies tutor, labor relations analyst, teacher, industrial relations officer, hospice case manager)? Give summary @ -No Was smoking cessation discussed for >3mins.? @ -No Was critical care preformed (if so, how long)? @ -No Were there social determinants of health that impacted care today? How? (Homelessness, low income, unemployed, alcoholism, drug addiction, transportation, low edu. Level, literacy, decrease access to med. care, nursing home, rehab)? @ -No Was there de-escalation of care discussed even if they declined (Discuss DNR or withdrawal of care, Hospice)? DNR status @ -No What co-morbidities impacted this encounter? (DM, HTN, Smoking, COPD, CAD, Cancer, CVA, ARF, Chemo, Hep., AIDS, mental health diagnosis, sleep apnea, morbid obesity)? @ -None Was patient admitted / discharged? Hospital course, mention meds given and route, prescriptions, significant lab abnormalities, going to OR and other pertinent info. @ -Based on the patient's presentation and physical exam, I am concerned for possible diverticulitis concerning the patient's pain as well as diarrhea. However cannot rule out lumbar spine injury or cauda equina syndrome at this time. We will obtain a rectal exam however patient when I initially saw the patient was in the hallway and therefore this was delayed. Patient in agreement this plan. Vital signs are within acceptable limits. Laboratory studies unremarkable except for mild hypokalemia which was replaced. Viral swabs negative. CT and pelvis unremarkable. Lumbar spine CT is consisten t with degenerative changes as well as concern for thecal sac compression at L4- L5. Rectal exam done at this time showed weak rectal tone. Due to the patient's weak rectal tone, as well as lower extremity weakness, and concern for cauda equina. I did discuss this with the patient and we will reach out to orthopedic surgery. I initially spoke with Dr. Rose who recommended I speak with Dr. Duvall. I spoke with Dr. Duvall who was in agreement plan for admission. Patient will be made n.p.o. after midnight. MRI of the lumbar spine ordered without contrast. Patient was in agreement with plan for admission. Will continue with IV fluid hydration at this time. Medicine consulted for medical management. Undiagnosed new problem with uncertain prognosis? @ -No Drug Therapy requiring intensive monitoring for toxicity (Heparin, Nitro, Insulin, Cardizem)? @ -No Were any procedures done? @ -No Diagnosis/symptom? @ -Diarrhea, concern for cauda equina syndrome,Hypoglycemia Acute, or Chronic, or Acute on Chronic? @ -Acute Uncomplicated (without systemic symptoms) or Complicated (systemic symptoms)? @ -Complicated Side effects of treatment? @ -None Exacerbation, Progression, or Severe Exacerbation] @ -No Poses a threat to life or bodily function? @ -Yes (Ang Stout) - Lab Data Lab Results 02/29/24 02/29/24 02/29/24 Range/Units 14:59 14:59 14:59 WBC 12.2 H (3.8-10.6) k/uL RBC 3.91 (3.80-5.40) m/uL Hgb 11.5 (11.4-16.0) gm/dL Hct 35.9 (34.0-46.0) % MCV 91.9 (80.0-100.0) fL MCH 29.3 (25.0-35.0) pg MCHC 31.9 (31.0-37.0) g/dL RDW 14.1 (11.5-15.5) % Plt Count 234 (150-450) k/uL MPV 9.1 Neutrophils % 78 % Lymphocytes % 12 % Monocytes % 6 % Eosinophils % 2 % Basophils % 1 % Neutrophils # 9.5 H (1.3-7.7) k/uL Lymphocytes # 1.5 (1.0-4.8) k/uL Monocytes # 0.7 (0-1.0) k/uL Eosinophils # 0.2 (0-0.7) k/uL Basophils # 0.1 (0-0.2) k/uL PT 9.8 L (10.0-12.5) sec INR 0.9 (<1.2) APTT 25.0 (22.0-30.0) sec Sodium 140 (137-145) mmol/L Potassium 3.2 L (3.5-5.1) mmol/L Chloride 109 H (98-107) mmol/L Carbon Dioxide 22 (22-30) mmol/L Anion Gap 9 mmol/L BUN 28 H (7-17) mg/dL Creatinine 1.08 H (0.52-1.04) mg/dL Est GFR (CKD-EPI)AfAm 59 (>60 ml/min/1.73 sqM) Est GFR (CKD-EPI)NonAf 51 (>60 ml/min/1.73 sqM) Glucose 97 (74-99) mg/dL Plasma Lactic Acid Anatoliy (0.7-2.0) mmol/L Calcium 8.6 (8.4-10.2) mg/dL Phosphorus 4.1 (2.5-4.5) mg/dL Magnesium 2.1 (1.6-2.3) mg/dL Total Bilirubin 0.6 (0.2-1.3) mg/dL AST 26 (14-36) U/L ALT 21 (4-34) U/L Alkaline Phosphatase 81 (38-126) U/L Total Protein 6.3 (6.3-8.2) g/dL Albumin 3.7 (3.5-5.0) g/dL Influenza Type A (PCR) (Not Detectd) Influenza Type B (PCR) (Not Detectd) RSV (PCR) (Not Detectd) SARS-CoV-2 (PCR) (Not Detectd) 02/29/24 02/29/24 Range/Units 14:59 15:23 WBC (3.8-10.6) k/uL RBC (3.80-5.40) m/uL Hgb (11.4-16.0) gm/dL Hct (34.0-46.0) % MCV (80.0-100.0) fL MCH (25.0-35.0) pg MCHC (31.0-37.0) g/dL RDW (11.5-15.5) % Plt Count (150-450) k/uL MPV Neutrophils % % Lymphocytes % % Monocytes % % Eosinophils % % Basophils % % Neutrophils # (1.3-7.7) k/uL Lymphocytes # (1.0-4.8) k/uL Monocytes # (0-1.0) k/uL Eosinophils # (0-0.7) k/uL Basophils # (0-0.2) k/uL PT (10.0-12.5) sec INR (<1.2) APTT (22.0-30.0) sec Sodium (137-145) mmol/L Potassium (3.5-5.1) mmol/L Chloride (98-107) mmol/L Carbon Dioxide (22-30) mmol/L Anion Gap mmol/L BUN (7-17) mg/dL Creatinine (0.52-1.04) mg/dL Est GFR (CKD-EPI)AfAm (>60 ml/min/1.73 sqM) Est GFR (CKD-EPI)NonAf (>60 ml/min/1.73 sqM) Glucose (74-99) mg/dL Plasma Lactic Acid Anatoliy 1.1 (0.7-2.0) mmol/L Calcium (8.4-10.2) mg/dL Phosphorus (2.5-4.5) mg/dL Magnesium (1.6-2.3) mg/dL Total Bilirubin (0.2-1.3) mg/dL AST (14-36) U/L ALT (4-34) U/L Alkaline Phosphatase (38-126) U/L Total Protein (6.3-8.2) g/dL Albumin (3.5-5.0) g/dL Influenza Type A (PCR) Not Detected (Not Detectd) Influenza Type B (PCR) Not Detected (Not Detectd) RSV (PCR) Not Detected (Not Detectd) SARS-CoV-2 (PCR) Not Detected (Not Detectd) - EKG Data EKG Comments: 12-lead Electrocardiogram Interpretation Note EKG was reviewed and interpreted by myself. 12-lead ECG performed at 1511 is interpreted by me as revealing normal sinus rhythm at a rate of 94 beats per minute. [place] is normal. [place] interval is 152 ms, QRS duration is 113 ms, QTc is 441 ms.. There were no ST or T wave abnormalities to suggest myocardial ischemia or injury. R wave progression across the precordium was satisfactory. By my interpretation this EKG is non-diagnostic for acute ischemia. (Ang Stout) Disposition <Jose Byrnes - Last Filed: 02/29/24 13:35> Time of Disposition: 17:39 <Ang Stout - Last Filed: 02/29/24 19:53> Clinical Impression: Diarrhea, Cauda equina syndrome, Hypokalemia Disposition: ADMITTED IP TO THIS HOSP Condition: Stable
[2024-02-29 15:18] LABS: Basophils # (A) 0.1 k/uL (0-0.2); Basophils % (A) 1 %; Eosinophils # (A) 0.2 k/uL (0-0.7); Eosinophils % (A) 2 %; HCT 35.9 % (34.0-46.0); HGB 11.5 gm/dL (11.4-16.0); Lymphocytes # (A) 1.5 k/uL (1.0-4.8); Lymphocytes % (A) 12 %; MCH 29.3 pg (25.0-35.0); MCHC 31.9 g/dL (31.0-37.0); MCV 91.9 fL (80.0-100.0); Mean Platelet Volume 9.1; Monocytes # (A) 0.7 k/uL (0-1.0); Monocytes % (A) 6 %; Neutrophils # (A) 9.5 k/uL (1.3-7.7); Neutrophils % (A) 78 %; Platelet Count 234 k/uL (150-450); RBC 3.91 m/uL (3.80-5.40); RDW 14.1 % (11.5-15.5); WBC 12.2 k/uL (3.8-10.6)
[2024-02-29] MEDS: SODIUM CHLORIDE 0.9% 1,000 ML IV STA (15:20)
[2024-02-29 15:25] LABS: ALT 21 U/L (4-34); AST 26 U/L (14-36); African American GFR (CKD) 59 (>60 ml/min/1.73 sqM); Albumin 3.7 g/dL (3.5-5.0); Alkaline Phosphatase 81 U/L (38-126); Anion Gap 9 mmol/L; Blood Urea Nitrogen 28 mg/dL (7-17); Calcium 8.6 mg/dL (8.4-10.2); Carbon Dioxide 22 mmol/L (22-30); Chloride 109 mmol/L (98-107); Glucose 97 mg/dL (74-99); INR 0.9 (<1.2); Magnesium 2.1 mg/dL (1.6-2.3); Non-African American GFR(CKD) 51 (>60 ml/min/1.73 sqM); Phosphorus 4.1 mg/dL (2.5-4.5); Potassium 3.2 mmol/L (3.5-5.1); Prothrombin Time 9.8 sec (10.0-12.5); Sodium 140 mmol/L (137-145); Total Bilirubin 0.6 mg/dL (0.2-1.3); Total Protein 6.3 g/dL (6.3-8.2)
--- NOTE | 2024-02-29 16:50 | CT ---
EXAMINATION TYPE: CT abdomen pelvis w con DATE OF EXAM: 02/29/2024 COMPARISON: 06/26/2023 INDICATION: abdominal pain, diarrhea DLP: 588.2 mGycm, Automated exposure control for dose reduction was used. CONTRAST: 100 mL of Isovue 300. Study performed without Oral Contrast TECHNIQUE: Axial images were obtained from above the diaphragm to the pubic rami in the axial plane a t 5 mm thick sections. Reconstructed images are reviewed on the computer in the coronal plane. FINDINGS: Limited CT sections are obtained the lung bases. The lung bases are clear. CT ABDOMEN: Liver: Normal Spleen: Normal Pancreas: Normal Adrenal glands: The adrenal glands are normal. Gallbladder: Normal Kidneys: No masses are evident. No hydronephrosis is present. There is a cyst on the anterior mid l eft kidney. Delayed images were obtained through the kidneys, which remain unremarkable. Aorta: Vascular calcification is within the aorta. Inferior vena cava: Normal. CT PELVIS: Loops of bowel within the abdomen and pelvis are normal. This study is without oral contrast limi ting pathology evaluation. Appendix: Not identified. No dilated tubular structure or inflammatory change is evident. Urinary bladder: Normal. Genitourinary structures: Uterus appears unremarkable. Adnexa are normal. Osseous structures: No suspicious lytic or sclerotic lesions. Please see dedicated lumbar spine image report IMPRESSION: 1. No acute CT abdomen pelvis abnormality.
--- NOTE | 2024-02-29 16:56 | CT ---
EXAMINATION TYPE: CT lumbar spine w con DATE OF EXAM: 02/29/2024 COMPARISON: None HISTORY: weakness CT DLP: 678 mGycm CONTRAST: CT scan of the lumbar is performed with IV Contrast, patient injected with 100 mL of Isovue 300. TECHNIQUE: CT of the lumbar spine is performed on a spiral scan at 3 mm thick sections. Reconstructed images are performed in the coronal and sagittal planes. FINDINGS: T12-L1: No focal disc herniation or significant disc bulge is evident. No spinal canal stenosis or neural foraminal stenosis is present. L1-L2: There is loss of disc height and vacuum disc phenomenon at L1-2. Very minimal retrolisthesis o f L1 on L2 may be present. L2-L3: There is loss of disc height and vacuum disc phenomenon. Minimal grade 1 retrolisthesis of L2 on L3 is present. Moderate left and severe right foraminal stenosis is present. L3-L4: Broad-based disc bulge is present. No AP spinal canal stenosis is present. Ligamentum flavum l axity is present. Moderate bilateral foraminal narrowing is present. L4-L5: There is loss of disc height is level. Vacuum disc phenomenon is present. There is a mild grad e 1 spondylolisthesis of L4 internal 5. Disc uncovering is present with mild anterior thecal sac impr ession. No spinal canal stenosis present. Left facet vacuum phenomenon is present. Facet hypertrophy is present bilaterally. Bilateral moderate to severe foraminal narrowing is present, greater on the r ight. L5-S1: There is vacuum disc phenomenon present this level. Bilateral foraminal stenosis is present. D isc uncovering is present with mild anterior thecal sac compression. No spinal canal stenosis. Vertebral alignment appears normal. IMPRESSION: 1. Multilevel degenerative disc changes. Vacuum disc phenomenon present at L2-3, L4-5, L5-S1. 2. Minimal spondylolisthesis of L4 internal 5 and L2 posterior on L3. 3. Multilevel foraminal stenosis discussed above. 4. Disc bulging with mild anterior thecal sac compression L4-5
[2024-02-29] MEDS: POTASSIUM CHLORIDE ER 20 MEQ TAB.ER PO STA (17:35)
[2024-02-29] MEDS ORDERED: MORPHINE SULFATE 4 MG/ML SYRINGE IV PRN (17:39)
[2024-02-29] MEDS ORDERED: ONDANSETRON 4 MG/2 ML VIAL IVP PRN (17:39)
[2024-02-29] MEDS ORDERED: NALOXONE 0.4 MG/ML 1 ML VIAL IV PRN (17:39)
[2024-02-29] MEDS: SODIUM CHLORIDE 0.9% 1,000 ML IV SCH ×2 (21:18→22:01)
[2024-02-29] MEDS: PREGABALIN 75 MG CAP PO SCH (21:58)
[2024-02-29] MEDS: IPRATROPIUM-ALBUTEROL 3 ML NEB INHALATION STA (22:08)
[2024-02-29] MEDS: CYCLOBENZAPRINE 5 MG TAB PO PRN (22:34)
[2024-03-01] MEDS: HEPARIN SODIUM,PORCINE 5,000 UNIT/ML 1 ML VIAL SQ SCH (00:27)
[2024-03-01 03:35] LABS: Amorphous Sediment,Urine Rare /hpf; Appearance,Urine Clear (Clear); Bacteria,Urine Many /hpf; Bilirubin,Urine Negative (Negative); Blood,Urine Negative (Negative); Budding Yeast,Urine Few /hpf; Color,Urine Yellow; Glucose,Urine (UA) Negative (Negative); Hyaline Casts,Urine 11 /lpf (0-2); Ketones,Urine Negative (Negative); Leukocyte Esterase,Urine Negative (Negative); Mucus,Urine Rare /hpf; Nitrite,Urine Positive (Negative); Protein,Urine Trace (Negative); RBC,Urine 1 /hpf (0-5); Urobilinogen,Urine <2.0 mg/dL (<2.0); WBC,Urine 4 /hpf (0-5)
--- NOTE | 2024-03-01 07:53 | P.CONS ---
History of Present Illness - Reason for Consult Consult date: 03/01/24 Medical management Requesting physician: Kvng Duvall - Chief Complaint Acute compression of the lower spine, weakness of the lower extremity - History of Present Illness HISTORY OF PRESENT ILLNESS: 73-year-old [address] 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 who presented to the emergency department at [facility] for complaining of lower extremity weakness along with weakness of the sphincters with incontinence to stool and urine become more progressive last 2 days with much worsening symptoms has been having worsening lower back pain with no history of trauma to the back recently. Original presentation sounds like diarrhea at the time of the patient really was having more incontinence. Ended up going for CT of the lumbar spine which shows multiple degenerative disc change with vacuum disc phenomenon presented at the L2-3, L4-5, and L5/S1. She had disc bulging with mild anterior thecal sac compression of the L4-L5 which most likely causing her symptoms. Recently CT of the abdomen pelvis did not show any acute problem or finding. Laboratory value WBC 12.2 hemoglobin 11.5 hematocrit 35.9 platelet count 274 with normal sodium at 140 potassium 3.2 chloride 109 bun 28 creatinine 1.08 with normal liver function test lactic acid phosphorus magnesium and respiratory infection were negative for influenza A, RSV and COVID-19. She was started on pain meds at the time along with muscle relaxer and admit patient for possible need to go for urgent surgery will release pressure of the lumbar spine. MRI lumbar spine will schedule for LEILA. REVIEW OF SYSTEMS: CONSTITUTIONAL: Well-developed no acute respiratory distress. EYES: No icterus sclerae, no conjunctivitis. EARS, NOSE, MOUTH, THROAT, and FACE: No sore throat, lymphadenopathy, carotid bruits or deformity. RESPIRATORY: No SOB cough or wheezes. CARDIOVASCULAR: No CP, Palpitation, PND, Orthopnea, or angina. GASTROINTESTINAL: No Abd pain, Nausea or vomiting, no Diarrhea or constipation, No GI Bleed, no distention or masses. GENITOURINARY: Negative for Hematuria or UTI, no kidney stones. INTEGUMENT/BREAST: Negative for any muscular injury with mild osteoarthritis.. HEMATOLOGIC/LYMPHATIC: Negative for bleed or purpura. MUSCULOSKELTAL: Positive myalgia and arthralgia. NEURLOGICAL: Positive lower extremity weakness with simple weakness bilaterally. BEHAVIORAL/PSYCH: Severe depression. ENDOCRINE: Negative. PHYSICAL EXAMINATION: General Appearance: Alert, cooperative, no distress, appears stated age. Neck HEENT: Supple, no lymphadenopathy, no thyroid enlargement, no carotid bruits. Lungs: Decreased breath sound bilaterally found hyposmotic slight wheezes. Chest Wall: Decreased expansion with deep inspiration no tenderness and no deformity was found on exam, no costochondral pain or discomfort. Heart: Regular rate and rhythm, S1, S2 normal, no murmur, rub or gallop. Back: Symmetric, no curvature, ROM normal, no CVA tenderness. Abdomen: Soft, non-tender, bowel sounds active all four quadrants, no masses, no organomegaly. Extremities: Extremities normal, atraumatic, no cyanosis or edema. Pulses: 2+ and symmetric. Skin: Skin color, texture, tugor normal, no rashes or lesions. Neurologic: Alert oriented x3 cranial nerves II through XII intact, positive weakness of the lower extremity not able to do gait and balance exam. ASSESSMENT AND PLAN: _Acute compression of lumbar spine especially L4-L5, not clear etiology is no sign of metastasis or cancer this could be acute or subacute trauma can benefit from starting steroid initially continue pain management patient will be going for MRI of the lumbar spine and might require to go for surgery. _Incontinence of urine and stool: Most likely from acute compression of the lumbar spine. _Asthma/COPD: Continue albuterol/ipratropium continue to watch oxygen level will add steroid inhaler as well. _Hypertension: Resume verapamil 180 mg daily try to keep systolic blood pressure below 140. _ JJ: will do Hydration and repeat CMP in 24Hrs. _ Severe Neuropathy of the Lower Exts: will stay on Lyrica for now. _ Hypokalemia: Replacement Therapy will be done. _Hyperlipidemia: Remain on atorvastatin 20 mg a day. _ Diarrhea: will do C diff and anti Diarrhea meds for now. _Chronic depression and bipolar disorders: Has been on Abilify, Wellbutrin XL, paroxetine And Topamax. _Hypothyroidism: Continue levothyroxine 25 mcg daily. _Chronic pain syndrome: Has been on hydrocodone along with muscle relaxer. _Chronic edema: Remain on Mild dose of HydroDIURIL. _GI prophylaxis: Pepcid 20 mg daily. _DVT prophylaxis: Continue heparin 5000 subcutaneous every 8 hours. CODE STATUS: Full code. Dr. Duvall thank you much for the consult if I can be any further help to please let me know. Past Medical History Past Medical History: Asthma, COPD, Fibromyalgia, Hyperlipidemia, Hypertension, Osteoarthritis (OA), Pneumonia, Renal Disease Additional Past Medical History / Comment(s): Pt recently admitted to [facility] on 02/26/22 with facial cellulitis and also had an allergic reaction to vancomycin. Other Hx: Bronchitis, migraines, chronic low back pain/L5 fracture, osteoporosis, nasal fractures/deviated septum, kidney stones, UTI. History of Any Multi-Drug Resistant Organisms: None Reported MDRO Source:: face Past Surgical History: Adenoidectomy, Breast Surgery, Orthopedic Surgery, Tonsillectomy Additional Past Surgical History / Comment(s): R total hip arthroplasty d/t avascular necrosis, L breast benign bx Past Anesthesia/Blood Transfusion Reactions: No Reported Reaction Smoking Status: Vaper - Past Family History Father Family Medical History: CVA/TIA, Diabetes Mellitus Additional Family Medical History / Comment(s): Father had a massive [place] in his late 60s or early 70s Mother Family Medical History: Myocardial Infarction ([place]) Additional Family Medical History / Comment(s): In her 70's had a heart attack Medications and Allergies Home Medications Medication Instructions Recorded Confirmed Type ALPRAZolam [Xanax] 0.5 mg PO TID 11/11/19 02/29/24 History Levothyroxine Sodium [Synthroid] 25 mcg PO DAILY 02/24/22 02/29/24 History SUMAtriptan succinate [Imitrex] 50 mg PO DAILY PRN 02/24/22 02/29/24 History Verapamil HCl [Verapamil ER] 180 mg PO DAILY 02/24/22 02/29/24 History ARIPiprazole [Abilify] 5 mg PO DAILY 02/29/24 02/29/24 History Albuterol Inhaler [Ventolin Hfa 1 - 2 puff INHALATION RT-Q6H PRN 02/29/24 02/29/24 History Inhaler] Ascorbic Acid [Vitamin C] 500 mg PO DAILY 02/29/24 02/29/24 History Atomoxetine HCl [Strattera] 25 mg PO DAILY 02/29/24 02/29/24 History Cyclobenzaprine [Flexeril] 5 mg PO TID PRN 02/29/24 02/29/24 History FLUoxetine HCL [PROzac] 20 mg PO DAILY 02/29/24 02/29/24 History Naproxen [EC-Naproxen] 375 mg PO BID PRN 02/29/24 02/29/24 History Pregabalin [Lyrica] 75 mg PO TID 02/29/24 02/29/24 History Rosuvastatin [Crestor] 10 mg PO DAILY 02/29/24 02/29/24 History Topiramate 25 mg PO DAILY 02/29/24 02/29/24 History Tretinoin/Emollient Base 1 applic TOPICAL DAILY 02/29/24 02/29/24 History [Tretinoin 0.05% Emollient Crm] buPROPion XL [Wellbutrin XL] 300 mg PO DAILY 02/29/24 02/29/24 History hydroCHLOROthiazide [Hydrodiuril] 25 mg PO DAILY 02/29/24 02/29/24 History oxyCODONE-APAP 5-325MG [Percocet 1 tab PO TID 02/29/24 02/29/24 History 5-325 mg] Allergies Allergy/AdvReac Type Severity Reaction Status Date / Time vancomycin Allergy Rash/Hives Verified 02/29/24 15:32 Physical Exam Vitals: Vital Signs Temp Pulse Pulse Resp BP BP Pulse Ox 02/29/24 21:47 92 19 126/72 93 L 02/29/24 20:49 94 18 117/64 97 02/29/24 12:44 98.1 F 104 H 20 111/75 94 L Intake and Output 02/29/24 02/29/24 02/29/24 06:59 14:59 22:59 Other: Weight 63.503 kg 63.503 kg Results CBC & Chem 7: 02/29/24 14:59 02/29/24 14:59 Labs: Abnormal Lab Results - Last 24 Hours (Table) 02/29/24 02/29/24 02/29/24 Range/Units 14:59 14:59 14:59 WBC 12.2 H (3.8-10.6) k/uL Neutrophils # 9.5 H (1.3-7.7) k/uL PT 9.8 L (10.0-12.5) sec Potassium 3.2 L (3.5-5.1) mmol/L Chloride 109 H (98-107) mmol/L BUN 28 H (7-17) mg/dL Creatinine 1.08 H (0.52-1.04) mg/dL
--- NOTE | 2024-03-01 08:08 | P.HPOR ---
History of Present Illness H&P Date: 03/01/24 Chief Complaint: 2 days of inability to ambulate and uncontrolled diarrhea Patient is a pleasant 73-year-old female who lives with her daughter. She is normally home ambulator without any assistance and says that she drives herself. Over the past 2 days the patient says she has had inability to ambulate on her own and has had to crawl around at home. She says that she has been having diarrhea constantly and has not been able to control it. She feels that she has soiled herself a number of times due to the diarrhea. She voids when she is having diarrhea but does not feel that she is having uncontrolled voiding. She says she is having some abdominal pain and discomfort. She denies any specific pain in her lower extremities. She denies any specific numbness tingling in her lower extremities. But she says that she is unable to stand and is afraid that she is going to fall and occasionally crawls at home over the past 2 days. She denies any prior incident like this. She denies any new back pain. She denies any specific trauma. She has some history of back pain and had says that she has history of bulging disks but denies radiculopathy or lower extremity pain with this. She denies any chest pain or shortness of breath. She denies any recent travel or fevers or chills or colds. She says that she has a long history of being a nervous wreck. She says that she does not have any other neurologic problems. She takes a number of medicines for neuropathy and for pain. Review of Systems As per HPI. Dr. Bowens was with us at bedside when the patient was being seen. She denies any specific saddle paresthesia. She denies any problems with urinating but she says that she has diarrhea constantly. She does not feel weak at her legs while she is in bed but she does not feel like she can stand up and feels like she will fall if she tries to stand up. She is able to roll over on her side well. She is able to sit up. Past Medical History Past Medical History: Asthma, COPD, Fibromyalgia, Hyperlipidemia, Hypertension, Osteoarthritis (OA), Pneumonia, Renal Disease Additional Past Medical History / Comment(s): Pt recently admitted to [facility] on 4/27/22 with facial cellulitis and also had an allergic reaction to vancomycin. Other Hx: Bronchitis, migraines, chronic low back pain/L5 fracture, osteoporosis, nasal fractures/deviated septum, kidney stones, UTI. History of Any Multi-Drug Resistant Organisms: None Reported MDRO Source:: face Past Surgical History: Adenoidectomy, Breast Surgery, Orthopedic Surgery, Tonsillectomy Additional Past Surgical History / Comment(s): R total hip arthroplasty d/t avascular necrosis, L breast benign bx Past Anesthesia/Blood Transfusion Reactions: No Reported Reaction Smoking Status: Vaper - Past Family History Father Family Medical History: CVA/TIA, Diabetes Mellitus Additional Family Medical History / Comment(s): Father had a massive [place] in his late 60s or early 70s Mother Family Medical History: Myocardial Infarction ([place]) Additional Family Medical History / Comment(s): In her 70's had a heart attack Medications and Allergies Home Medications Medication Instructions Recorded Confirmed Type ALPRAZolam [Xanax] 0.5 mg PO TID 11/11/19 02/29/24 History Levothyroxine Sodium [Synthroid] 25 mcg PO DAILY 02/24/22 02/29/24 History SUMAtriptan succinate [Imitrex] 50 mg PO DAILY PRN 02/24/22 02/29/24 History Verapamil HCl [Verapamil ER] 180 mg PO DAILY 02/24/22 02/29/24 History ARIPiprazole [Abilify] 5 mg PO DAILY 02/29/24 02/29/24 History Albuterol Inhaler [Ventolin Hfa 1 - 2 puff INHALATION RT-Q6H PRN 02/29/24 02/29/24 History Inhaler] Ascorbic Acid [Vitamin C] 500 mg PO DAILY 02/29/24 02/29/24 History Atomoxetine HCl [Strattera] 25 mg PO DAILY 02/29/24 02/29/24 History Cyclobenzaprine [Flexeril] 5 mg PO TID PRN 02/29/24 02/29/24 History FLUoxetine HCL [PROzac] 20 mg PO DAILY 02/29/24 02/29/24 History Naproxen [EC-Naproxen] 375 mg PO BID PRN 02/29/24 02/29/24 History Pregabalin [Lyrica] 75 mg PO TID 02/29/24 02/29/24 History Rosuvastatin [Crestor] 10 mg PO DAILY 02/29/24 02/29/24 History Topiramate 25 mg PO DAILY 02/29/24 02/29/24 History Tretinoin/Emollient Base 1 applic TOPICAL DAILY 02/29/24 02/29/24 History [Tretinoin 0.05% Emollient Crm] buPROPion XL [Wellbutrin XL] 300 mg PO DAILY 02/29/24 02/29/24 History hydroCHLOROthiazide [Hydrodiuril] 25 mg PO DAILY 02/29/24 02/29/24 History oxyCODONE-APAP 5-325MG [Percocet 1 tab PO TID 02/29/24 02/29/24 History 5-325 mg] Allergies Allergy/AdvReac Type Severity Reaction Status Date / Time vancomycin Allergy Rash/Hives Verified 02/29/24 15:32 Physical Examination Osteopathic Statement: *. No significant issues noted on an osteopathic structural exam other than those noted in the History and Physical/Consult. - Hip bilateral Gait: other (She is nontender to palpation her hips. No pain with internal ex rotation of her hips. She is able to lift her legs up off the bed with 5 - strength bilaterally well-healed incision on the right from her total hip replacement) - L Spine: dermatomal strength & reflexes bilateral Strength: hip flexion: 5/5 (Her back is clear. There is nontender to palpation. She rolls over and moves in bed well. Her legs she is able to lift her legs up off the bed independently 5 out of 5 strength. Her knee extension, dorsiflexion and plantarflexion are 5 out of 5 strength. Thighs and calf soft nontender. No sadd) Strength: hip extension: 5/5 (She does not have saddle paresthesia. She has good sensation throughout.) Results - Labs Labs: Abnormal Lab Results - Last 24 Hours (Table) 02/29/24 02/29/24 02/29/24 Range/Units 14:59 14:59 14:59 WBC 12.2 H (3.8-10.6) k/uL Neutrophils # 9.5 H (1.3-7.7) k/uL PT 9.8 L (10.0-12.5) sec Potassium 3.2 L (3.5-5.1) mmol/L Chloride 109 H (98-107) mmol/L BUN 28 H (7-17) mg/dL Creatinine 1.08 H (0.52-1.04) mg/dL Ur Specific [place] (1.001-1.035) Urine Protein (Negative) Urine Nitrite (Negative) Amorphous Sediment (None) /hpf Urine Bacteria (None) /hpf Hyaline Casts (0-2) /lpf Urine Mucus (None) /hpf Urine Yeast (Budding) (None) /hpf 03/01/24 Range/Units 03:06 WBC (3.8-10.6) k/uL Neutrophils # (1.3-7.7) k/uL PT (10.0-12.5) sec Potassium (3.5-5.1) mmol/L Chloride (98-107) mmol/L BUN (7-17) mg/dL Creatinine (0.52-1.04) mg/dL Ur Specific [place] 1.050 H (1.001-1.035) Urine Protein Trace H (Negative) Urine Nitrite Positive H (Negative) Amorphous Sediment Rare H (None) /hpf Urine Bacteria Many H (None) /hpf Hyaline Casts 11 H (0-2) /lpf Urine Mucus Rare H (None) /hpf Urine Yeast (Budding) Few H (None) /hpf H & H 02/29/24 Range/Units 14:59 Hgb 11.5 (11.4-16.0) gm/dL Hct 35.9 (34.0-46.0) % Coagulation 02/29/24 Range/Units 14:59 INR 0.9 (<1.2) Result Diagrams: 02/29/24 14:59 02/29/24 14:59 - Diagnostic results CT Scan - lumbar: report reviewed, image reviewed (CT scan of the lumbar spine shows degenerative changes throughout particularly at L3-4 L4-5 and L5-S1 with facet arthropathy and foraminal stenosis. He does not show shannan central stenosis. 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 She is getting further workup in regards to C. difficile. It is difficult to determine specifically the source of her symptoms though we certainly have to rule out the possibility of cauda equina syndrome. Her testing in bed shows adequate overall strength in her bilateral lower extremities without saddle paresthesias. She is not having specific pain in her lower extremities or radiculopathy. She has an MRI arranged for this morning which we ordered stat yesterday. This will give us more information in terms of the degree of central stenosis. I spoke with her regarding the possibility of cauda equina syndrome and the possible need for surgical intervention. She seems to understand this. Will have further information once we have the MRI and I will discuss that result with her further for our possible treatment plans including options of conservative treatment or surgery. The MRI is still pending. Will discuss the results with her further. In the meantime she is continuing her conservative workup and treatment. She is obtaining evaluation for C. difficile given her diarrhea. Will have therapy work with her to try to have her mobilize and see how her legs are doing. And we will have her on steroid medication. I asked the ER to start the medication yesterday evening. Dr. Bowens was with us at the time of evaluation and we discussed with him and he is in agreement
[2024-03-01] MEDS: methylPREDNISolone SOD SUCCI 125 MG/2 ML VIAL IV SCH (08:15)
[2024-03-01] MEDS: oxyCODONE-APAP 5-325MG 1 EACH TAB PO SCH (08:16)
[2024-03-01] MEDS: ATORVASTATIN 20 MG TAB PO SCH (08:16)
[2024-03-01] MEDS: FLUoxetine HCL 20 MG CAP PO SCH (08:16)
[2024-03-01] MEDS: LEVOTHYROXINE 25 MCG TAB PO SCH (08:17)
[2024-03-01] MEDS: ARIPiprazole 5 MG TAB PO SCH (08:17)
[2024-03-01] MEDS: ALPRAZolam 0.5 MG TAB PO SCH (08:17)
[2024-03-01] MEDS: buPROPion XL 300 MG TAB.ER.24H PO SCH (08:18)
[2024-03-01] MEDS: VERAPAMIL SR 180 MG TABLET.ER PO SCH (08:19)
[2024-03-01] MEDS: TOPIRAMATE 25 MG TAB PO SCH (08:19)
[2024-03-01] MEDS: hydroCHLOROthiazide 25 MG TAB PO SCH (08:19)
[2024-03-01 11:24] LABS: Basophils # (A) 0.03 X 10*3/uL (0.00-0.10); Basophils % (A) 0.4 %; Eosinophils # (A) 0.21 X 10*3/uL (0.04-0.35); Eosinophils % (A) 2.5 %; HCT 30.3 % (37.2-46.3); HGB 9.5 g/dL (12.0-15.0); Lymphocytes # (A) 1.65 X 10*3/uL (0.90-5.00); Lymphocytes % (A) 19.9 %; MCH 29.6 pg (27.0-32.0); MCHC 31.4 g/dL (32.0-37.0); MCV 94.4 FL (80.0-97.0); Mean Platelet Volume 12.1 FL (9.5-12.2); Monocytes # (A) 0.76 X 10*3/uL (0.20-1.00); Monocytes % (A) 9.2 %; NRBC Per 100 WBC 0 X 10*3/uL (0.00-0.01); Neutrophils % (A) 67.6 %; Platelet Count 215 X 10*3/uL (140-440); RBC 3.21 X 10*6/uL (4.10-5.20); RDW 14.5 % (11.5-14.5); WBC 8.28 X 10*3/uL (4.50-10.00)
[2024-03-01 11:25] LABS: ALT 14 U/L (8-44); AST 20 U/L (13-35); Albumin 3.3 g/dL (3.8-4.9); Albumin/Globulin Ratio 1.94 Ratio (1.60-3.17); Alkaline Phosphatase 64 U/L (41-126); BUN/Creat Ratio 22.57 Ratio (12.00-20.00); Blood Urea Nitrogen 15.8 mg/dL (9.0-27.0); Calcium 8.2 mg/dL (8.7-10.3); Carbon Dioxide 18.8 mmol/L (21.6-31.8); Chloride 113 mmol/L (96-109); Globulin 1.7 g/dL (1.6-3.3); Glucose 87 mg/dL (70-110); Potassium 3.1 mmol/L (3.5-5.5); Sodium 143 mmol/L (135-145); Total Bilirubin 0.2 mg/dL (0.3-1.2)
--- NOTE | 2024-03-01 11:37 | P.PN ---
Progress Note - Text Progress Note Date: 03/01/24 The patient is seen and examined at bedside. She just returned back from her MRI of her lumbar spine. She feels that her symptoms seem to be slightly better. She still feels unsteady on her feet but she feels like her legs may be doing better. She has not had further diarrhea this morning. Her exam essentially unchanged. She has sustained dorsiflexion plantarflexion EHL hip flexion knee extension the bilateral lower extremities. Her abdomen has mild distention. The MRI of the lumbar spine is completed today. The images are available but there is no report yet. The imaging shows evidence of listhesis L4-5 L5-S1 grade 1-2. There is significant facet arthrosis at L4-5 L5-S1, with some moderate bilateral foraminal encroachment At L2-3 there is significant disc desiccation. There are some Modic endplate changes. There is some signal increase within the disc at L2-3 and along the vertebral bodies. There is disc bulging with right foraminal stenosis. There is no significant central stenosis. There is no large disc herniation or central compression. Assessment and plan Inability to ambulate with perceived weakness and uncontrolled diarrhea Disc changes at L2-3 with some increased signal with right foraminal stenosis but no significant central stenosis Degenerative disc disease and listhesis with foraminal stenosis L4-5 L5-S1 It is difficult to correlate the MRI changes with the patient's inability to ambulate and diarrhea. I do not see gross central stenosis to account for cauda equina syndrome but she does have a number of degenerative changes at her lumbar spine. There is some signal change at L2-3 but there is no large disc herniation or severe central stenosis. We are awaiting the radiology reading for further information and guidance. There is listhesis and degenerative change with foraminal encroachment L4-5 and L5-S1 but this appears to be chronic and would account for her long-term low back issues. She feels she may have had some slight improvement over this morning perhaps with the steroid medication. She is not having gross weakening or any progressive neurologic deficit on exam at her lower extremities at this point. I think that she should continue with her IV steroid medication and we should see how she is able to mobilize with physical therapy. If she is able to make some progress we may be able to continue conservative management. We will allow her to eat her regular diet today but he will again make her n.p.o. after midnight as we could consider the possibility of interventional treatment at the L2-3 space. We will await the MRI report, and have further recommendations to follow. I discussed this with the patient and answered her questions. She seems to understand and she is agreeable.
--- NOTE | 2024-03-01 11:49 | MR ---
EXAMINATION TYPE: MR lumbar spine wo con DATE OF EXAM: 03/01/2024 11:20 AM CLINICAL INDICATION:Female, 73 years old with history of eval for cauda equina syndrome, Evaluate for cauda equina syndrome COMPARISON: 10/19/2022 TECHNIQUE: Multi planar, multi sequence imaging was performed utilizing: T1-weighted, T2-weighted, a nd turbo inversion recovery imaging of the lumbar spine. IV Contrast: cc . (None if empty) FINDINGS: Alignment: The lumbar vertebral bodies have preserved heights with grade 1 anterolisthesis of L4 on L 5 and L5 on S1. Cord: The conus medullaris and the distal spinal cord appear unremarkable with regards to their signa l intensity and morphology. Bones/Discs: Mild degeneration changes throughout the spine with osteophyte formation and facet joint arthropathy with the findings worse at L2-L3 disc space iIntervertebral disc signal is maintained. T12-L1: No evidence of significant spinal canal stenosis or neural foraminal stenosis. L1-L2: No evidence of significant spinal canal stenosis or neural foraminal stenosis. L2-L3: Disc bulge with right central disc protrusion and facet joint arthropathy result in mild spina l canal and severe right and moderate left neural foraminal stenosis. L3-L4: Disc bulge and facet joint arthropathy result in mild spinal canal and mild to moderate bilate ral neural foraminal stenosis. L4-L5: Disc uncovering from grade 1 anterolisthesis and facet joint arthropathy with mild spinal kenney l stenosis and moderate bilateral neural foraminal stenosis. L5-S1: Disc uncovering from grade 1 anterolisthesis and facet joint arthropathy with mild spinal kenney l stenosis and moderate bilateral neural foraminal stenosis. No significant spinal canal or neural foraminal stenosis in the remainder of the visualized levels. Other findings: None. IMPRESSION: Overall findings not significantly changed from 10/19/2022. 1. No evidence for cauda equina syndrome. Spinal canal stenosis present L2-L3 with mild stenosis. 2. Right central disc protrusion at L2-L3 with severe right and moderate left neural foraminal steno sis. 3. Multilevel disc degeneration with associated osteoarthritic changes. 4. Grade 1 anterolisthesis of L4 on L5 and L5 on S1.
[2024-03-01 12:04] LABS: Glucose,Whole Blood 107 mg/dL (70-110)
[2024-03-01] MEDS: INSULIN ASPART (NovoLOG) 100 UNIT/ML VIAL SQ SCH (12:10)
[2024-03-01] MEDS ORDERED: Potassium Replacement Protocol 1 EACH MISC MISCELLANE PRN (12:37)
[2024-03-01] MEDS: POTASSIUM CHLORIDE ER 20 MEQ TAB.ER PO SCH (13:25)
[2024-03-01 17:01] LABS: Glucose,Whole Blood 152 mg/dL (70-110)
[2024-03-01 20:48] LABS: Glucose,Whole Blood 147 mg/dL (70-110)
[2024-03-01] MEDS: ALBUTEROL HFA INHALER INHALATION PRN (22:02)
[2024-03-02 07:11] LABS: Glucose,Whole Blood 145 mg/dL (70-110)
[2024-03-02 12:06] LABS: Glucose,Whole Blood 122 mg/dL (70-110)
--- NOTE | 2024-03-02 13:46 | P.PN ---
Progress Note - Text Progress Note Date: 03/02/24 Orthopedic spine: History of present illness: Patient is a pleasant 73-year-old female who is seen and examined at bedside for follow-up evaluation of her lumbar spine. Since being seen and examined yesterday she does feel her symptoms have had some improvement. She is also had MRI imaging of her lumbar spine performed. She has some chronic low back pain but her low back pain is fairly well- controlled. Her most significant complaint today is abdominal pain. She is no longer experiencing any diarrhea. She states since her episodes of diarrhea she has not had a bowel movement. She states she is voiding without any significant difficulty. She is not currently complaining of lower extremity weakness or radiculopathy. She has good strength in her legs independently. She is able to perform good active range of motion of her lower extremities in bed without difficulty. She is able to ambulate at the bedside with assistance of a walker. She does find herself falling towards the right when lifting her right leg. She states that is a newer symptom for her and she is unsure why. She is not experiencing any significant pain while she is ambulating. She continues to be seen and examined by primary care provider. She states she has not had further evaluation in regards to her abdomen. It was discussed with nursing that this should be evaluated from a medical standpoint. Patient is currently receiving Solu-Medrol 100 mg IV every 12 hours and Percocet 5 mg / 325 mg 3 times daily for pain control with benefit. Physical exam: Patient is awake, alert, and oriented 3 Vital signs stable Good chest excursion with deep inspiration and expiration Abdomen soft nontender Examination of lumbar spine reveals skin is intact with no abrasions, lacerations, or bruises; no erythema, purulence or signs of infection Dorsiflexion, plantarflexion, and extensor hallucis longus positive sustained bilaterally Lower extremity strength 5/5 bilaterally Straight leg test negative bilateral lower extremities No signs or symptoms of DVT; no calf pain No pain with internal and external rotation of the hips bilaterally Patient is able to ambulate with the assistance of a walker but does fall towards the right when lifting her right lower extremity Pertinent studies: MRI of the lumbar spine taken on 03/01/2024: Overall findings have not significantly changed as compared to previous study taken on 10/19/2022; no evidence for cauda equina syndrome; L2-3 mild spinal canal stenosis with right paracentral disc protrusion with severe right and moderate left neural foraminal stenosis; L4-5 and L5-S1 grade 1 spondylolisthesis; multilevel degenerative disc disease Assessment: Chronic low back pain Unsteady gait L4-5 and L5-S1 grade 1 spondylolisthesis Lumbar degenerative disc disease L2-3 mild spinal canal stenosis with severe right and moderate left neuroforaminal stenosis Abdominal pain Hyperlipidemia Hypokalemia Hypertension Chronic pain syndrome Hypothyroidism Chronic depression bipolar disorder Severe neuropathy of the lower extremities Plan: 1. Since being seen and examined yesterday, patient has had some improvement of her symptoms. She has also had lumbar MRI imaging performed. MRI imaging does show changes at L2-3, L4-5, and L5-S1 but does not show evidence for cauda equina syndrome. Her imaging also remains fairly stable as compared to previous study taken on 10/19/2022. We did discuss these changes at her lumbar spine that they do not all correlate well specifically with her symptoms. She has some chronic low back pain but her low back pain is fairly well- controlled. Her most significant complaint today is abdominal pain. She is no longer experiencing any diarrhea. She states since her episodes of diarrhea she has not had a bowel movement. She states she is voiding without any significant difficulty. She is not currently complaining of lower extremity weakness or radiculopathy. She has good strength in her legs independently. She is able to perform good active range of motion of her lower extremities in bed without difficulty. She is able to ambulate at the bedside with assistance of a walker. She does find herself falling towards the right when lifting her right leg. She states that is a newer symptom for her and she is unsure why. She is not experiencing any significant pain while she is ambulating. Currently, we would plan to have her work through further conservative treatment options. We do not feel acute surgical intervention at her lumbar spine would provide significant improvement of her symptoms overall. She does have unsteadiness with her gait. She is encouraged to work with physical therapy to increase her mobility and ambulation. 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 Will also plan for consultation for case management for discharge planning. We will continue to follow the patient. If she is able to continue to improve, we could plan for discharge home as early as tomorrow. We would plan to have her follow-up in outpatient setting for further treatment evaluation. Patient may follow-up with Aleksandar Dos Santos PA-C or Dr. Chong Duvall at [facility] in 2-3 weeks following discharge. 2. Patient will continue be seen and examined by medicine for her multiple other medical diagnoses. We did discuss she may need further evaluation in regards to her ongoing abdominal pain. Is been difficult to determine the source of the patient's symptoms. She does have proximal issues with weakness when she stands but does not have apparent neurologic deficit when she is sitting on laying down. She is no longer having diarrhea but continues to have some abdominal pain. It is difficult to attribute her symptoms to a spine process. She should continue with her medical workup and management. She may consider evaluation for GI issues or with neurology. I will go ahead and consult neurology and defer further GI workup to medicine
[2024-03-02] MEDS: IPRATROPIUM-ALBUTEROL 3 ML NEB INHALATION SCH (15:42)
[2024-03-02] MEDS: methylPREDNISolone SOD SUCCI 125 MG/2 ML VIAL IV SCH (16:03)
[2024-03-02 17:13] LABS: Glucose,Whole Blood 154 mg/dL (70-110)
[2024-03-02] MEDS: INSULIN ASPART (NovoLOG) 100 UNIT/ML VIAL SQ SCH (17:56)
[2024-03-02 20:13] LABS: Glucose,Whole Blood 133 mg/dL (70-110)
[2024-03-02] MEDS: SUMAtriptan succinate 50 MG TAB PO PRN (21:29)
[2024-03-03] MEDS: IPRATROPIUM-ALBUTEROL 3 ML NEB INHALATION PRN (03:43)
--- NOTE | 2024-03-03 06:12 | P.PN ---
Subjective Progress Note Date: 03/02/24 HISTORY OF PRESENT ILLNESS: 73-year-old [address] 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 who presented to the emergency department at [facility] for complaining of lower extremity weakness along with weakness of the sphincters with incontinence to stool and urine become more progressive last 2 days with much worsening symptoms has been having worsening lower back pain with no history of trauma to the back recently. Original presentation sounds like diarrhea at the time of the patient really was having more incontinence. Ended up going for CT of the lumbar spine which shows multiple degenerative disc change with vacuum disc phenomenon presented at the L2-3, L4-5, and L5/S1. She had disc bulging with mild anterior thecal sac compression of the L4-L5 which most likely causing her symptoms. Recently CT of the abdomen pelvis did not show any acute problem or finding. Laboratory value WBC 12.2 hemoglobin 11.5 hematocrit 35.9 platelet count 274 with normal sodium at 140 potassium 3.2 chloride 109 bun 28 creatinine 1.08 with normal liver function test lactic acid phosphorus magnesium and respiratory infection were negative for influenza A, RSV and COVID-19. She was started on pain meds at the time along with muscle relaxer and admit patient for possible need to go for urg ent surgery will release pressure of the lumbar spine. MRI lumbar spine will schedule for LEILA. March 02, 2024: Fortunately overnight with patient being on steroid has improved si gnificantly she has better control of her sphincter and pain and discomfort has improved. MRI of the lumbar spine was done no evidence for cauda equina syndrome she had L2-3 mild spinal canal stenosis with a right paracentral disc protrusion with severe right and moderate left neural foraminal stenosis. The patient did not require to go for any urgent surgery at this point. Will continue current medical management, patient might benefit from having brace as well. Still waiting for her C. difficile which I believe patient is having formed stool the lab refused to run the specimen. REVIEW OF SYSTEMS: CONSTITUTIONAL: Well-developed no acute respiratory distress. EYES: No icterus sclerae, no conjunctivitis. EARS, NOSE, MOUTH, THROAT, and FACE: No sore throat, lymphadenopathy, carotid bruits or deformity. RESPIRATORY: No SOB cough or wheezes. CARDIOVASCULAR: No CP, Palpitation, PND, Orthopnea, or angina. GASTROINTESTINAL: No Abd pain, Nausea or vomiting, no Diarrhea or constipation, No GI Bleed, no distention or masses. GENITOURINARY: Negative for Hematuria or UTI, no kidney stones. INTEGUMENT/BREAST: Negative for any muscular injury with mild osteoarthritis.. HEMATOLOGIC/LYMPHATIC: Negative for bleed or purpura. MUSCULOSKELTAL: Positive myalgia and arthralgia. NEURLOGICAL: Positive lower extremity weakness with simple weakness bilaterally. BEHAVIORAL/PSYCH: Severe depression. ENDOCRINE: Negative. PHYSICAL EXAMINATION: General Appearance: Alert, cooperative, no distress, appears stated age. Neck HEENT: Supple, no lymphadenopathy, no thyroid enlargement, no carotid bruits. Lungs: Decreased breath sound bilaterally found hyposmotic slight wheezes. Chest Wall: Decreased expansion with deep inspiration no tenderness and no deformity was found on exam, no costochondral pain or discomfort. Heart: Regular rate and rhythm, S1, S2 normal, no murmur, rub or gallop. Back: Symmetric, no curvature, ROM normal, no CVA tenderness. Abdomen: Soft, non-tender, bowel sounds active all four quadrants, no masses, no organomegaly. Extremities: Extremities normal, atraumatic, no cyanosis or edema. Pulses: 2+ and symmetric. Skin: Skin color, texture, tugor normal, no rashes or lesions. Neurologic: Alert oriented x3 cranial nerves II through XII intact, positive weakness of the lower extremity not able to do gait and balance exam. ASSESSMENT AND PLAN: _Acute compression of lumbar spine especially L2-L3, and severe spinal stenosis causing acute symptoms has improved significantly being on steroid her MRI shows a finding is compatible to what she had back in 2021 still been watched by orthopedic to see if she would benefit from going for surgery when she is stable. _Incontinence of urine and stool: Most likely the effect of spinal stenosis and severity of her lumbar spine problem the patient's symptoms are slightly better at this point being on steroids and probably lowering the inflammation around her compressed spine. Continue current medical management for now. _Asthma/COPD: Continue albuterol/ipratropium continue to watch oxygen level will add steroid inhaler as well. _Hypertension: Resume verapamil 180 mg daily try to keep systolic blood pressure below 140. _ JJ: will do Hydration and repeat CMP in 24Hrs. _ Severe Neuropathy of the Lower Exts: will stay on Lyrica for now. _ Hypokalemia: Replacement Therapy will be done. _Hyperlipidemia: Remain on atorvastatin 20 mg a day. _ Diarrhea: will do C diff and anti Diarrhea meds for now. _Chronic depression and bipolar disorders: Has been on Abilify, Wellbutrin XL, paroxetine And Topamax. _Hypothyroidism: Continue levothyroxine 25 mcg daily. _Chronic pain syndrome: Has been on hydrocodone along with muscle relaxer. Prognosis: Fair. Discussion patient did not need to go for an urgent surgery at this point we will continue conservative management continue steroid will initiate physical therapy and brace waiting for orthopedic To decide on the best next action plan. Objective - Vital Signs Vital signs: Vital Signs Temp 97.6 F 03/02/24 02:00 Pulse 63 03/02/24 02:00 Resp 16 03/01/24 12:00 BP 95/58 03/02/24 02:17 Pulse Ox 97 03/02/24 02:00 FiO2 Intake & Output 03/01/24 03/01/24 03/02/24 06:59 18:59 06:59 Intake Total 1200 Output Total 550 100 Balance -550 1100 Weight 63.503 kg Intake: Intake, IV Titration 1200 Amount Sodium Chloride 0.9% 1, 1200 000 ml @ 100 mls/hr IV . Q10H NESS Rx#:[id number] Output: Urine 550 100 Straight 550 Other: Voiding Method Bedside Commode Bedside Commode Bedside Commode Diaper Diaper Diaper # Voids 1 1 1 # Bowel Movements 1 - Labs CBC & Chem 7: 03/01/24 06:13 03/01/24 16:41 Labs: Abnormal Lab Results - Last 24 Hours (Table) 03/01/24 03/01/24 03/01/24 Range/Units 06:13 06:13 16:57 RBC 3.21 L (4.10-5.20) X 10*6/uL Hgb 9.5 L (12.0-15.0) g/dL Hct 30.3 L (37.2-46.3) % MCHC 31.4 L (32.0-37.0) g/dL Potassium 3.1 L (3.5-5.5) mmol/L Chloride 113 H (96-109) mmol/L Carbon Dioxide 18.8 L (21.6-31.8) mmol/L BUN/Creatinine Ratio 22.57 H (12.00-20.00) Ratio POC Glucose (mg/dL) 152 H (70-110) mg/dL Calcium 8.2 L (8.7-10.3) mg/dL Total Bilirubin 0.2 L (0.3-1.2) mg/dL Total Protein 5.0 L (6.2-8.2) g/dL Albumin 3.3 L (3.8-4.9) g/dL 03/01/24 Range/Units 20:45 RBC (4.10-5.20) X 10*6/uL Hgb (12.0-15.0) g/dL Hct (37.2-46.3) % MCHC (32.0-37.0) g/dL Potassium (3.5-5.5) mmol/L Chloride (96-109) mmol/L Carbon Dioxide (21.6-31.8) mmol/L BUN/Creatinine Ratio (12.00-20.00) Ratio POC Glucose (mg/dL) 147 H (70-110) mg/dL Calcium (8.7-10.3) mg/dL Total Bilirubin (0.3-1.2) mg/dL Total Protein (6.2-8.2) g/dL Albumin (3.8-4.9) g/dL
[2024-03-03 07:13] LABS: Glucose,Whole Blood 130 mg/dL (70-110)
[2024-03-03] MEDS: LOPERAMIDE 2 MG CAP PO PRN (08:40)
--- NOTE | 2024-03-03 10:58 | P.PN ---
Progress Note - Text Progress Note Date: 03/03/24 Patient is seen and examined today at bedside. The patient says she is again having some diarrhea and was up through the night with diarrhea. She denies any fevers or chills. She denies any new symptoms in her lower extremities. She says she is still unsteady on her feet. She feels weak when she stands but is comfortable when she is in bed. She has chronic low back pain and lower extremity pain which is unchanged from her usual status over the years. She feels her weakness and inability to ambulate is new for her. Physical Exam Afebrile with stable vital signs Abdomen is mildly distended but nontender. Chest has good excursion deep and space expiration Extremities have not had neurologic change. She is able to lift her legs up off the bed independently. She holds them up with essentially 5 out of 5 strength bilateral. She has 5-5 dorsiflexion plantarflexion bilaterally intact. Calves and thighs soft nontender. Calves and thighs were soft nontender without evidence of DVT. Assessment/Plan Patient is again having some diarrhea and some lower abdominal discomfort. Will have medicine continue to monitor this and continue management for her abdominal issues and diarrhea her GI issues do not stem from her Lumbar spine and we do not have plans for surgical intervention at her lumbar spine as she does not have evidence of cauda equina or significant central stenosis. The patient does have some foraminal stenosis at L2-3 and could be a candidate for interventional pain management. Dr. Jennings was present at bedside and feels that she may have some benefit with an epidural steroid injection at L2-3 level and I think that is reasonable to see if that can help with some of her lower extremity symptoms. We are essentially continuing conservative care without any plan for surgical intervention. The patient may need placement posthospitalization if she is not able to mobilize safely and case management is consulted as well. We will continue to increase the patient's mobilization with therapy. We will continue pain control with oral or IV medications. We'll continue to follow patient closely.
[2024-03-03 12:03] LABS: INR 0.9 (<1.2); Partial Thromboplastin Time 26.2 sec (22.0-30.0); Prothrombin Time 9.7 sec (10.0-12.5)
--- NOTE | 2024-03-03 12:57 | P.PAINCN ---
History of Present Illness - Reason for Consult Consult date: 03/03/24 - History of Present Illness This is 73 years old female with a chronic low back pain, who was admitted to [facility] secondary to inability to ambulate,, and patient reported that increase of her low back pain patient had MRI of the lumbar spine done on admission showed that she had L2-3 bulging disc with right central disc protrusion and facet arthropathy and multilevel, patient also complaining of sev ere diarrhea and GI services was consulted Past Medical History Past Medical History: Asthma, COPD, Fibromyalgia, Hyperlipidemia, Hypertension, Osteoarthritis (OA), Pneumonia, Renal Disease Additional Past Medical History / Comment(s): Pt recently admitted to [facility] on 02/26/22 with facial cellulitis and also had an allergic reaction to vancomycin. Other Hx: Bronchitis, migraines, chronic low back pain/L5 fracture, osteoporosis, nasal fractures/deviated septum, kidney stones, UTI. History of Any Multi-Drug Resistant Organisms: None Reported MDRO Source:: face Past Surgical History: Adenoidectomy, Breast Surgery, Orthopedic Surgery, Tonsillectomy Additional Past Surgical History / Comment(s): R total hip arthroplasty d/t avascular necrosis, L breast benign bx Past Anesthesia/Blood Transfusion Reactions: No Reported Reaction Smoking Status: Vaper - Past Family History Father Family Medical History: CVA/TIA, Diabetes Mellitus Additional Family Medical History / Comment(s): Father had a massive ME in his late 60s or early 70s Mother Family Medical History: Myocardial Infarction (ME) Additional Family Medical History / Comment(s): In her 70's had a heart attack Medications and Allergies Home Medications Medication Instructions Recorded Confirmed Type ALPRAZolam [Xanax] 0.5 mg PO TID 11/11/19 02/29/24 History Levothyroxine Sodium [Synthroid] 25 mcg PO DAILY 02/24/22 02/29/24 History SUMAtriptan succinate [Imitrex] 50 mg PO DAILY PRN 02/24/22 02/29/24 History Verapamil HCl [Verapamil ER] 180 mg PO DAILY 02/24/22 02/29/24 History ARIPiprazole [Abilify] 5 mg PO DAILY 02/29/24 02/29/24 History Albuterol Inhaler [Ventolin Hfa 1 - 2 puff INHALATION RT-Q6H PRN 02/29/24 02/29/24 History Inhaler] Ascorbic Acid [Vitamin C] 500 mg PO DAILY 02/29/24 02/29/24 History Atomoxetine HCl [Strattera] 25 mg PO DAILY 02/29/24 02/29/24 History Cyclobenzaprine [Flexeril] 5 mg PO TID PRN 02/29/24 02/29/24 History FLUoxetine HCL [PROzac] 20 mg PO DAILY 02/29/24 02/29/24 History Naproxen [EC-Naproxen] 375 mg PO BID PRN 02/29/24 02/29/24 History Pregabalin [Lyrica] 75 mg PO TID 02/29/24 02/29/24 History Rosuvastatin [Crestor] 10 mg PO DAILY 02/29/24 02/29/24 History Topiramate 25 mg PO DAILY 02/29/24 02/29/24 History Tretinoin/Emollient Base 1 applic TOPICAL DAILY 02/29/24 02/29/24 History [Tretinoin 0.05% Emollient Crm] buPROPion XL [Wellbutrin XL] 300 mg PO DAILY 02/29/24 02/29/24 History hydroCHLOROthiazide [Hydrodiuril] 25 mg PO DAILY 02/29/24 02/29/24 History oxyCODONE-APAP 5-325MG [Percocet 1 tab PO TID 02/29/24 02/29/24 History 5-325 mg] Allergies Allergy/AdvReac Type Severity Reaction Status Date / Time vancomycin Allergy Rash/Hives Verified 03/03/24 12:20 Physical Exam Vitals: Vital Signs Temp Pulse Pulse Resp BP Pulse Ox 03/03/24 12:21 97.7 F 89 16 94/59 97 03/03/24 11:43 80 03/03/24 11:30 80 03/03/24 08:25 80 03/03/24 08:15 80 03/03/24 07:08 98.2 F 74 19 139/84 97 03/03/24 03:55 80 03/03/24 03:43 74 03/03/24 02:05 99 111/68 03/03/24 01:54 72 18 156/81 97 03/02/24 21:52 76 03/02/24 21:40 80 03/02/24 20:00 97.7 F 105 H 18 142/80 98 03/02/24 15:54 76 03/02/24 15:42 76 Intake and Output 03/02/24 03/03/24 03/03/24 22:59 06:59 14:59 Other: Voiding Method Bedside Commode Diaper # Voids 2 3 # Bowel Movements 1 6 Physical Examinations : -Constitutiona : Cooperative , not in acute distress . -HEENT : nech : supple , no Lymphadenopathy , normal thyroid size . : eyes : no ptosis , no icterus, no photophobia . - neurologic : Cranial nerve II to XII intact , no focal neurological deffecit . -psychatric : alert , oriented X 3 , appropriate affect , intact judgment and insight . -Lymphatic : no Lymphadenopathy . - musculoskeltal : Lumber spine moter stegnth lower extremities ,thigh and legs 5/5 Right side , 5/5 Left side deep tendon reflexes : normal Knee Jerk , normal ankle Jerk lumber facet Loading Test =positive Right , positive Left Range of motion of the lumbar spine Flexion 30 degrees, extension 30 degrees strait leg raising test = positive at 60 degree Results CBC & Chem 7: 03/01/24 06:13 03/01/24 16:41 Labs: Abnormal Lab Results - Last 24 Hours (Table) 03/02/24 03/02/24 03/03/24 Range/Units 17:11 20:09 07:11 PT (10.0-12.5) sec POC Glucose (mg/dL) 154 H 133 H 130 H (70-110) mg/dL 03/03/24 Range/Units 11:14 PT 9.7 L (10.0-12.5) sec POC Glucose (mg/dL) (70-110) mg/dL Comments: MRI of the lumbar spine= L2-3 bulging disc and right central disc protrusion, a nd lumbar facet arthropathy, multilevel lumbar degenerative disc disease and multilevel lumbar facet arthropathy Assessment and Plan Plan: Assessment and plan=1-acute on chronic low back pain. 2-L2-3 bulging disc disease, multilevel lumbar degenerative disc disease, multilevel lumbar spondylosis with lumbar facet arthropathy. Patient could benefit from lumbar epidural steroid injection under fluoroscopy guidance at L2-3 level, procedure risk and benefit discussed with the patient she agreed with the proceeding, received heparin today Will check PTT before the procedure Time with Patient: Less than 30 PQRS Measure Charge Sheet - Pain Location Generalized Non-Pharmacological Interventions: Darkened Room, Distraction, Position/Reposition Pharmacological Interventions: PRN Medication Lower Back Non-Pharmacological Interventions: Position/Reposition PQRS Narrative: Smoking Status Current some day smoker Blood Pressure [Left Arm] 94/59 Blood Pressure 117/64 Pain Intensity [Lower Back] 8 Pain Intensity [Generalized] 0 Pain Intensity 8 Pain Scale Used [Lower Back] Numeric (1 - 10) Pain Scale Used Numeric (1 - 10) Scale Used Numeric (1 - 10) Home Medications: Ambulatory Orders ALPRAZolam [Xanax] 0.5 mg PO TID 11/11/19 Levothyroxine Sodium [Synthroid] 25 mcg PO DAILY 02/24/22 SUMAtriptan succinate [Imitrex] 50 mg PO DAILY PRN 02/24/22 Verapamil HCl [Verapamil ER] 180 mg PO DAILY 02/24/22 ARIPiprazole [Abilify] 5 mg PO DAILY 02/29/24 Albuterol Inhaler [Ventolin Hfa Inhaler] 1 - 2 puff INHALATION RT-Q6H PRN 02/29/24 Ascorbic Acid [Vitamin C] 500 mg PO DAILY 02/29/24 Atomoxetine HCl [Strattera] 25 mg PO DAILY 02/29/24 Cyclobenzaprine [Flexeril] 5 mg PO TID PRN 02/29/24 FLUoxetine HCL [PROzac] 20 mg PO DAILY 02/29/24 Naproxen [EC-Naproxen] 375 mg PO BID PRN 02/29/24 Pregabalin [Lyrica] 75 mg PO TID 02/29/24 Rosuvastatin [Crestor] 10 mg PO DAILY 02/29/24 Topiramate 25 mg PO DAILY 02/29/24 Tretinoin/Emollient Base [Tretinoin 0.05% Emollient Crm] 1 applic TOPICAL DAILY 02/29/24 buPROPion XL [Wellbutrin XL] 300 mg PO DAILY 02/29/24 hydroCHLOROthiazide [Hydrodiuril] 25 mg PO DAILY 02/29/24 oxyCODONE-APAP 5-325MG [Percocet 5-325 mg] 1 tab PO TID 02/29/24
[2024-03-03] MEDS ORDERED: IOPAMIDOL M200 10 ML VIAL ONE (13:21)
[2024-03-03] MEDS ORDERED: methylPREDNISolone ACETATE 40 MG/ML 1 ML VIAL ONE (13:21)
--- NOTE | 2024-03-03 13:38 | P.PCN ---
Date of Procedure: 03/03/24 Procedure(s) Performed: PREOPERATIVE DIAGNOSIS: 1- Lumbar Degenerative Disc Diseases 2-Lumbar spondylosis with Facet arthropathy without myelopathy. 3-lumbar foraminal stenosis POSTOPERATIVE DIAGNOSIS: 1-lumbar degenerative disc disease. 2-lumbar spondylosis with facet arthropathy without myelopathy. 3-lumbar foraminal stenosis. PROCEDURE 1. Lumbar epidural steroid injection under fluoroscopic guidance at the L2-3 level. (Fluoroscopy imaging was available in radiology department) 2. Lumbar epidurogram. ANESTHESIA: Lidocaine 1% 3 and then only. EBL: Minimal PROCEDURE INDICATION: The patient with low back pain and radiculitis symptoms unresponsive to conservative treatment. Fluoroscopy was used to optimize visualization of the needle placement and to maximize safety. PROCEDURE DESCRIPTION / TECHNIQUE: The patient was seen and identified in the preoperative area. Risks, benefits, complications including but not limited to infections ,bleeding ,allergic reaction to the medications ,nerve damage and not complete pain releife , and alternatives were discussed with the patient. The patient agreed to proceed with the procedure and signed the consent, and vital signs were stable. Patient was taken to the OR and time out was completed. The patient was placed in the prone position on procedure table and a pillow was placed under the abdomen to reduce lumbar lordosis. The lumbosacral area was prepped and draped in the usual sterile fashion.ere closely monitored during the procedure. Vital signs was monitered during the entire procedure. Using anterior-posterior fluoroscopy, the L2-3 interlaminar space was identified and the skin over this site was marked and then infiltrated with 1% lidocaine subcutaneously. Subsequently, a 20-gauge Tuohy epidural needle was inserted and advanced toward the epidural space using the ``Loss of resistance technique and guided by AP and lateral fluoroscopy. The correct needle position in the epidural space was verified with the injection of 2 mL of the water soluble contrast dye Isovue 200 contrast and observing an excellent epidurogram with the epidural spread of the dye, after negative aspiration for blood and CSF and in the absence of paresthesias. Again after negative aspiration, 5 ml mixture containing 40 mg of Depo-medrol ( Preservetive Free ), and 2 ml of preservative free Normal Saline, and 2 ml of preservative free lidocaine 1% solution was injected and a washout of epidurogram was seen. Needle was withdrawn intact, skin was cleansed, and bandages were applied. COMPLICATIONS: None DISPOSITION / PLANS: The patient was placed in a supine position and transferred to the recovery area in a stable condition for observation. There was no evidence of lower extremity motor or sensory deficit after the procedure. Patient was discharged from the recovery room after meeting discharge criteria. Home discharge instructions were given to the patient by the staff. The patient was reexamined prior to discharge. The patient will schedule a follow up in the clinic in 2-4 weeks.
[2024-03-03 13:50] LABS: Glucose,Whole Blood 126 mg/dL (70-110)
--- NOTE | 2024-03-03 13:52 | FL ---
EXAMINATION TYPE: FL guided pain mgmt statistic DATE OF EXAM: 03/03/2024 HISTORY: Fluoroscopy time Total dose area product (DAP) in uGy*m?, mGy*cm? (or similar): 0.79360 IMPRESSION: 1. Fluoroscopy time.
--- NOTE | 2024-03-03 13:53 | P.CONS ---
History of Present Illness - Reason for Consult Consult date: 03/03/24 Diarrhea and incontinence Requesting physician: Todd Cummins - Chief Complaint Lower extremity weakness, diarrhea - History of Present Illness This is a pleasant 73-year-old female who presented to the emergency department with concerns for lower extremity weakness, difficulty walking with diarrhea and incontinence of stool. She has a past medical history including asthma, COPD, fibromyalgia, hyperlipidemia, hypertension, osteoarthritis, and chronic renal disease. She states symptoms started about 4 days ago she started having weakness in her legs and was unsteady on her feet. She then started having diarrhea states 10-15 times a day with loss of continence. She denied any nausea or vomiting, no blood in her stool. States that initially she had no pain but now she is having some lower abdominal cramping and some gassy feeling. She denies any fevers or chills. Denies any recent sick contacts or traveling. No recent antibiotics or new medications. She did have an increase in her dose of Prozac. She was seen by liquified natural [employer] specialist Dr. Hernandez and had undergone CT of the back as well as MRI and has ruled out cauda equina syndrome. She does have acute compression in the lumbar spine. She had a CT of the abdomen pelvis that had no acute findings. Stool C. difficile I will negative. Patient states she has never had a colonoscopy, she did have a Cologuard that was negative. Review of Systems REVIEW OF SYSTEMS: CARDIOPULMONARY: No chest pain or shortness of breath. Gastrointestinal: Lower abdominal cramping and bloating. No nausea or vomiting. No hematemesis, coffee-ground emesis. No rectal bleeding, or melena. Diarrhea 10-15 times a day. Nonbloody. GENITOURINARY: No dysuria or hematuria. MUSCULOSKELETAL: Weakness in lower extremities, gait imbalance. SKIN: No rashes. No jaundice. ENDOCRINE: No chills, fevers. No excessive weight gain or loss. No polydipsia or polyuria. PSYCHIATRIC: Unremarkable. NEUROLOGY: No change in mental status. Dizziness. New onset lower extremity weakness and gait imbalance. ENT: Vision unremarkable. CONSTITUTIONAL: No recent weight loss. No fever, chills, night sweats. Past Medical History Past Medical History: Asthma, COPD, Fibromyalgia, Hyperlipidemia, Hypertension, Osteoarthritis (OA), Pneumonia, Renal Disease Additional Past Medical History / Comment(s): Pt recently admitted to [facility] on with facial cellulitis and also had an allergic reaction to vancomycin. Other Hx: Bronchitis, migraines, chronic low back pain/L5 fracture, osteoporosis, nasal fractures/deviated septum, kidney stones, UTI. History of Any Multi-Drug Resistant Organisms: None Reported MDRO Source:: face Past Surgical History: Adenoidectomy, Breast Surgery, Orthopedic Surgery, Tonsillectomy Additional Past Surgical History / Comment(s): R total hip arthroplasty d/t avascular necrosis, L breast benign bx Past Anesthesia/Blood Transfusion Reactions: No Reported Reaction Smoking Status: Vaper - Past Family History Father Family Medical History: CVA/TIA, Diabetes Mellitus Additional Family Medical History / Comment(s): Father had a massive IA in his late 60s or early 70s Mother Family Medical History: Myocardial Infarction (IA) Additional Family Medical History / Comment(s): In her 70's had a heart attack Medications and Allergies Home Medications Medication Instructions Recorded Confirmed Type ALPRAZolam [Xanax] 0.5 mg PO TID 11/11/19 02/29/24 History Levothyroxine Sodium [Synthroid] 25 mcg PO DAILY 02/24/22 02/29/24 History SUMAtriptan succinate [Imitrex] 50 mg PO DAILY PRN 02/24/22 02/29/24 History Verapamil HCl [Verapamil ER] 180 mg PO DAILY 02/24/22 02/29/24 History ARIPiprazole [Abilify] 5 mg PO DAILY 02/29/24 02/29/24 History Albuterol Inhaler [Ventolin Hfa 1 - 2 puff INHALATION RT-Q6H PRN 02/29/24 02/29/24 History Inhaler] Ascorbic Acid [Vitamin C] 500 mg PO DAILY 02/29/24 02/29/24 History Atomoxetine HCl [Strattera] 25 mg PO DAILY 02/29/24 02/29/24 History Cyclobenzaprine [Flexeril] 5 mg PO TID PRN 02/29/24 02/29/24 History FLUoxetine HCL [PROzac] 20 mg PO DAILY 02/29/24 02/29/24 History Naproxen [EC-Naproxen] 375 mg PO BID PRN 02/29/24 02/29/24 History Pregabalin [Lyrica] 75 mg PO TID 02/29/24 02/29/24 History Rosuvastatin [Crestor] 10 mg PO DAILY 02/29/24 02/29/24 History Topiramate 25 mg PO DAILY 02/29/24 02/29/24 History Tretinoin/Emollient Base 1 applic TOPICAL DAILY 02/29/24 02/29/24 History [Tretinoin 0.05% Emollient Crm] buPROPion XL [Wellbutrin XL] 300 mg PO DAILY 02/29/24 02/29/24 History hydroCHLOROthiazide [Hydrodiuril] 25 mg PO DAILY 02/29/24 02/29/24 History oxyCODONE-APAP 5-325MG [Percocet 1 tab PO TID 02/29/24 02/29/24 History 5-325 mg] Allergies Allergy/AdvReac Type Severity Reaction Status Date / Time vancomycin Allergy Rash/Hives Verified 03/03/24 12:20 Physical Exam Vitals: Vital Signs Temp Pulse Pulse Resp BP Pulse Ox 03/03/24 08:25 80 03/03/24 08:15 80 03/03/24 07:08 98.2 F 74 19 139/84 97 03/03/24 03:55 80 03/03/24 03:43 74 03/03/24 02:05 99 111/68 03/03/24 01:54 72 18 156/81 97 03/02/24 21:52 76 03/02/24 21:40 80 03/02/24 20:00 97.7 F 105 H 18 142/80 98 03/02/24 15:54 76 03/02/24 15:42 76 03/02/24 12:02 97.8 F 88 16 105/67 96 Intake and Output 03/02/24 03/03/24 03/03/24 22:59 06:59 14:59 Other: Voiding Method Bedside Commode Diaper # Voids 2 3 # Bowel Movements 1 6 General appearance: The patient is alert, oriented, appears in no acute distress. HET: Head is normocephalic and atraumatic. Conjunctiva pink. Sclera anicteric. Neck: Supple without lymphadenopathy. Trachea midline. Heart: Regular. Lungs: Equal expansion, normal respiratory effort. Abdomen: Soft, lower abdominal tenderness, nondistended. Skin: No rashes. No jaundice. Extremities: Normal skin color and turgor. No pedal edema. Neurological: No focal deficits. Alert and oriented x3. Results CBC & Chem 7: 03/01/24 06:13 03/01/24 16:41 Labs: Abnormal Lab Results - Last 24 Hours (Table) 03/02/24 03/02/24 03/02/24 Range/Units 12:04 17:11 20:09 POC Glucose (mg/dL) 122 H 154 H 133 H (70-110) mg/dL 03/03/24 Range/Units 07:11 POC Glucose (mg/dL) 130 H (70-110) mg/dL Comments: CT abdomen pelvis reports no acute CT abdomen pelvis abnormality. CT lumbar spine reports multilevel degenerative disc changes. Vacuum disc phenomenon present L2/3, L4/5, L5/7 S1 Minimal spinal thesis of L4 interval 5 and L2 posterior on L3. Multilevel forearm mental stenosis discussed above. Disc bulging with the mild anterior thecal sac compression L4-5 Lumbar MRI no evidence for cauda equina syndrome. Spinal canal stenosis present at L2-L3 with mild stenosis. Right central disc protrusion at L2-L3 with severe right and moderate left neural foraminal stenosis. Multilevel disc degeneration with associated osteoarthritic changes. Grade 1 anterolisthesis of L4 on L5 and L5 on S1 Assessment and Plan (1) Diarrhea Narrative/Plan: 73-year-old female presenting with acute onset lower extremity weakness and gait imbalance and diarrhea. They have ruled out cauda equina syndrome. Unclear etiology of diarrhea. CT abdomen pelvis with no acute findings. No new medications however she states that they did increase her dose of Prozac. No recent antibiotic use. Stool C. difficile negative. Possible gastroenteritis. Will obtain stool cultures. Increase Imodium to 4 mg every 6 hours scheduled and will add Questran. Current Visit: Yes Status: Acute Code(s): R19.7 - DIARRHEA, UNSPECIFIED SNOMED Code(s): 67034250 (2) Lower extremity weakness Current Visit: Yes Status: Acute Code(s): R29.898 - OTH SYMPTOMS AND SIGNS INVOLVING THE MUSCULOSKELETAL SYSTEM SNOMED Code(s): 794906596 Plan: 1. Continue symptomatic and supportive care 2. Diet as tolerated 3. Obtain stool cultures 4. Imodium increased to 4 mg every 4 times daily scheduled 5. Questran ordered Thank you for this consultation, we will continue to follow. Dr. Mello Cramer I agree with the dictator's note, documented as a scribe by Jennifer Rosado.
[2024-03-03] MEDS: LOPERAMIDE 2 MG CAP PO SCH (15:33)
[2024-03-03] MEDS: CHOLESTYRAMINE (WITH SUGAR) 4 GM PACKET PO SCH (16:57)
[2024-03-03 17:14] LABS: Glucose,Whole Blood 164 mg/dL (70-110)
[2024-03-03 20:20] LABS: Glucose,Whole Blood 121 mg/dL (70-110)
--- NOTE | 2024-03-04 06:11 | P.PN ---
Subjective Progress Note Date: 03/03/24 HISTORY OF PRESENT ILLNESS: 73-year-old [address] 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 who presented to the emergency department at [facility] for complaining of lower extremity weakness along with weakness of the sphincters with incontinence to stool and urine become more progressive last 2 days with much worsening symptoms has been having worsening lower back pain with no history of trauma to the back recently. Original presentation sounds like diarrhea at the time of the patient really was having more incontinence. Ended up going for CT of the lumbar spine which shows multiple degenerative disc change with vacuum disc phenomenon presented at the L2-3, L4-5, and L5/S1. She had disc bulging with mild anterior thecal sac compression of the L4-L5 which most likely causing her symptoms. Recently CT of the abdomen pelvis did not show any acute problem or finding. Laboratory value WBC 12.2 hemoglobin 11.5 hematocrit 35.9 platelet count 274 with normal sodium at 140 potassium 3.2 chloride 109 bun 28 creatinine 1.08 with normal liver function test lactic acid phosphorus magnesium and respiratory infection were negative for influenza A, RSV and COVID-19. She was started on pain meds at the time along with muscle relaxer and admit patient for possible need to go for urg ent surgery will release pressure of the lumbar spine. MRI lumbar spine will schedule for LEILA. March 02, 2024: Fortunately overnight with patient being on steroid has improved si gnificantly she has better control of her sphincter and pain and discomfort has improved. MRI of the lumbar spine was done no evidence for cauda equina syndrome she had L2-3 mild spinal canal stenosis with a right paracentral disc protrusion with severe right and moderate left neural foraminal stenosis. The patient did not require to go for any urgent surgery at this point. Will continue current medical management, patient might benefit from having brace as well. Still waiting for her C. difficile which I believe patient is having formed stool the lab refused to run the specimen. March 03, 2024: Patient slightly with relapse and having more Incontinence today pain is controlled with medication. I agreed to move on to consult gastroenterology for her diarrhea her C. difficile was negative will continue symptomatic support along with Imodium and stool culture on Questran was started. Also consult pain management doctor on the very for possible epidural injection and the plan was to do a fluoroscopy guided L2-L3 epidural injection risk benefits was discussed with the patient and patient ended up having epidural shortly in the afternoon on March 03, 2024. Continue to titrate physical therapy and patient will be probably benefit from considering either inpatient rehab or SNF when she is ready to leave the hospital. REVIEW OF SYSTEMS: CONSTITUTIONAL: Well-developed no acute respiratory distress. EYES: No icterus sclerae, no conjunctivitis. EARS, NOSE, MOUTH, THROAT, and FACE: No sore throat, lymphadenopathy, carotid bruits or deformity. RESPIRATORY: No SOB cough or wheezes. CARDIOVASCULAR: No CP, Palpitation, PND, Orthopnea, or angina. GASTROINTESTINAL: No Abd pain, Nausea or vomiting, no Diarrhea or constipation, No GI Bleed, no distention or masses. GENITOURINARY: Negative for Hematuria or UTI, no kidney stones. INTEGUMENT/BREAST: Negative for any muscular injury with mild osteoarthritis.. HEMATOLOGIC/LYMPHATIC: Negative for bleed or purpura. MUSCULOSKELTAL: Positive myalgia and arthralgia. NEURLOGICAL: Positive lower extremity weakness with simple weakness bilaterally. BEHAVIORAL/PSYCH: Severe depression. ENDOCRINE: Negative. PHYSICAL EXAMINATION: General Appearance: Alert, cooperative, no distress, appears stated age. Neck HEENT: Supple, no lymphadenopathy, no thyroid enlargement, no carotid bruits. Lungs: Decreased breath sound bilaterally found hyposmotic slight wheezes. Chest Wall: Decreased expansion with deep inspiration no tenderness and no deformity was found on exam, no costochondral pain or discomfort. Heart: Regular rate and rhythm, S1, S2 normal, no murmur, rub or gallop. Back: Symmetric, no curvature, ROM normal, no CVA tenderness. Abdomen: Soft, non-tender, bowel sounds active all four quadrants, no masses, no organomegaly. Extremities: Extremities normal, atraumatic, no cyanosis or edema. Pulses: 2+ and symmetric. Skin: Skin color, texture, tugor normal, no rashes or lesions. Neurologic: Alert oriented x3 cranial nerves II through XII intact, positive weakness of the lower extremity not able to do gait and balance exam. ASSESSMENT AND PLAN: _Acute compression of lumbar spine especially L2-L3, and severe spinal stenosis causing acute symptoms, symptom was improved little bit with steroid initially but has been having more symptoms today with incontinence pain and mobility with weakness will consult pain management still seeing Dr. Hernandez for possible need at some point for intervention which did not help to be urgent at this point. _Incontinence of urine and stool: Most likely the effect of spinal stenosis and severity of her lumbar spine she is back having incontinence slightly bit worse her C. difficile was negative patient be seen gastroenterology no endoscopy required at this point with adding Questran along with Lomotil was helpful. _Asthma/COPD: Continue albuterol/ipratropium continue to watch oxygen level will add steroid inhaler as well. _Hypertension: Resume verapamil 180 mg daily try to keep systolic blood pressure below 140. _ JJ: will do Hydration and repeat CMP in 24Hrs. _ Severe Neuropathy of the Lower Exts: will stay on Lyrica for now. _ Hypokalemia: Replacement Therapy will be done. _Hyperlipidemia: Remain on atorvastatin 20 mg a day. _ Diarrhea: will do C diff and anti Diarrhea meds for now. _Chronic depression and bipolar disorders: Has been on Abilify, Wellbutrin XL, paroxetine And Topamax. _Hypothyroidism: Continue levothyroxine 25 mcg daily. _Chronic pain syndrome: Has been on hydrocodone along with muscle relaxer. Prognosis: Fair. Discussion patient will be going for epidural injection today, continue pain management and physical therapy continue to treat her incontinence and diarrhea titrate physical therapy hopefully improve they are following to either inpatient rehab or SNF. Objective - Vital Signs Vital signs: Vital Signs Temp 97.7 F 03/02/24 20:00 Pulse 80 03/03/24 03:55 Resp 18 03/03/24 01:54 BP 111/68 03/03/24 02:05 Pulse Ox 97 03/03/24 01:54 FiO2 Intake & Output 03/02/24 03/02/24 03/03/24 06:59 18:59 06:59 Intake Total 1200 Output Total 200 Balance 1000 Intake: Intake, IV Titration 1200 Amount Sodium Chloride 0.9% 1, 1200 000 ml @ 100 mls/hr IV . Q10H NESS Rx#:[id number] Output: Urine 100 Post Void Residual 100 Other: Voiding Method Bedside Commode Bedside Commode Bedside Commode Diaper Diaper Diaper # Voids 1 2 3 # Bowel Movements 1 6 - Labs CBC & Chem 7: 03/01/24 06:13 03/01/24 16:41 Labs: Abnormal Lab Results - Last 24 Hours (Table) 03/02/24 03/02/24 03/02/24 Range/Units 07:10 12:04 17:11 POC Glucose (mg/dL) 145 H 122 H 154 H (70-110) mg/dL 03/02/24 Range/Units 20:09 POC Glucose (mg/dL) 133 H (70-110) mg/dL
[2024-03-04 07:24] LABS: HCT 31.4 % (34.0-46.0); Hypochromasia Marked; MCH 30.5 pg (25.0-35.0); MCHC 31.2 g/dL (31.0-37.0); Mean Platelet Volume 9.3; Platelet Count 254 k/uL (150-450); RDW 14.6 % (11.5-15.5); WBC 11.8 k/uL (3.8-10.6)
[2024-03-04 07:37] LABS: HGB 9.8 gm/dL (11.4-16.0)
[2024-03-04 07:40] LABS: Glucose,Whole Blood 105 mg/dL (70-110)
--- NOTE | 2024-03-04 08:40 | P.PN ---
Progress Note - Text Progress Note Date: 03/04/24 Orthopedic spine: History of present illness: Patient is a pleasant 73-year-old female who is seen and examined at bedside for follow-up evaluation of her lumbar spine. We previously reviewed her lumbar MRI imaging. Yesterday she was able to undergo an injection with pain management. She states since that time her right lower extremity leg pain has significantly improved. She does feel she is ambulating better. She does continue to utilize a walker to aid in ambulation. She states she still falls to the right when standing on her left lower extremity but that has improved following her recent injection. Currently, she has some chronic low back pain but her low back pain is fairly well-controlled. Her most significant complaint today is abdominal pain. Since yesterday she has been experiencing significant diarrhea and states she has gone approximately 20 times. States her abdominal pain is most significant at the middle towards the bottom of her abdomen. She was seen by medicine this morning. C. difficile testing was negative. They are planning for further stool evaluation for virus. She states she is voiding without any significant difficulty. She is not currently complaining of lower extremity weakness or radiculopathy. She has good strength in her legs independently. She is able to perform good active range of motion of her lower extremities in bed without difficulty. She does not experience any significant pain while she is ambulating. She continues to be seen and examined by primary care provider. Patient is currently receiving Solu-Medrol 60 mg IV every 24 hours and Percocet 5 mg / 325 mg 3 times daily for pain control with benefit. Physical exam: Patient is awake, alert, and oriented 3 Vital signs stable Good chest excursion with deep inspiration and expiration Abdomen soft nontender Examination of lumbar spine reveals skin is intact with no abrasions, lacerations, or bruises; no erythema, purulence or signs of infection Small Band-Aid intact over epidural injection site Dorsiflexion, plantarflexion, and extensor hallucis longus positive sustained bilaterally Lower extremity strength 5/5 bilaterally Straight leg test negative bilateral lower extremities No signs or symptoms of DVT; no calf pain No pain with internal and external rotation of the hips bilaterally Patient is able to ambulate with the assistance of a walker but does fall towards the right when lifting her right lower extremity Pertinent studies: MRI of the lumbar spine taken on 03/01/2024: Overall findings have not significantly changed as compared to previous study taken on 10/19/2022; no evidence for cauda equina syndrome; L2-3 mild spinal canal stenosis with right paracentral disc protrusion with severe right and moderate left neural foraminal stenosis; L4-5 and L5-S1 grade 1 spondylolisthesis; multilevel degenerative disc disease Assessment: Chronic low back pain Unsteady gait L4-5 and L5-S1 grade 1 spondylolisthesis Lumbar degenerative disc disease L2-3 mild spinal canal stenosis with severe right and moderate left neuroforaminal stenosis Abdominal pain Diarrhea Hyperlipidemia Hypokalemia Hypertension Chronic pain syndrome Hypothyroidism Chronic depression bipolar disorder Severe neuropathy of the lower extremities Plan: 1. Since being seen and examined yesterday, patient has had some improvement of her symptoms following epidural injection at L2-3 with pain management. We previously reviewed her MRI imaging of her lumbar spine with her.. MRI imaging does show changes at L2-3, L4-5, and L5-S1 but does not show evidence for cauda equina syndrome. Her imaging also remains fairly stable as compared to previous study taken on 10/19/2022. She has some chronic low back pain but her low back pain is fairly well- controlled. Her most significant complaint today is abdominal pain. Since yesterday she has been experiencing significant diarrhea and states she has gone approximately 20 times. States her abdominal pain is most significant at the middle towards the bottom of her abdomen. She was seen by medicine this morning. C. difficile testing was negative. They are planning for further stool evaluation for virus. She states she is voiding without any significant difficulty. She is not currently complaining of lower extremity weakness or radiculopathy. She has good strength in her legs independently. She is able to perform good active range of motion of her lower extremities in bed without difficulty. She is happy with her progress in regards to her lumbar spine and lower extremities. Prescription has been written, signed, and provided to case management to obtain a 2 wheeled walker. Patient does have difficulty with her ambulation and is unsteady with her gait. The 2 wheeled walker is required to help her increase her mobility and ambulation safely. Currently, we would plan to have her work through further conservative treatment options. We do not feel acute surgical intervention at her lumbar spine would provide significant improvement of her symptoms overall. She does have unsteadiness with her gait but feels she has had some improvement as compared to yesterday. She is encouraged to work with physical therapy to increase her mobility and ambulation. 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 Will also plan for consultation for case management for discharge planning. We will continue to follow the patient. She will be cleared for discharge once cleared by medicine. Currently, she is undergoing further evaluation for her abdomen and diarrhea. We would plan to have her follow-up in outpatient setting for further treatment evaluation. Patient may follow-up with Aleksandar Dos Santos PA-C or Dr. Chong Duvall at [facility] in 2-3 weeks following discharge. 2. Patient will continue be seen and examined by medicine for her multiple other medical diagnoses. She will continue with further evaluation for her ongoing abdominal pain and diarrhea.
[2024-03-04 09:00] LABS: Creatine Kinase 64 U/L (26-186)
[2024-03-04 09:09] LABS: ALT 28 U/L (8-44); AST 26 U/L (13-35); Albumin 3.5 g/dL (3.8-4.9); Albumin/Globulin Ratio 2.06 Ratio (1.60-3.17); Alkaline Phosphatase 61 U/L (41-126); BUN/Creat Ratio 18.44 Ratio (12.00-20.00); Blood Urea Nitrogen 16.6 mg/dL (9.0-27.0); Calcium 8.6 mg/dL (8.7-10.3); Carbon Dioxide 23.4 mmol/L (21.6-31.8); Chloride 112 mmol/L (96-109); Globulin 1.7 g/dL (1.6-3.3); Glucose 110 mg/dL (70-110); Potassium 3.3 mmol/L (3.5-5.5); Sodium 145 mmol/L (135-145); Total Bilirubin <0.2 mg/dL (0.3-1.2); Total Protein 5.2 g/dL (6.2-8.2)
--- NOTE | 2024-03-04 09:21 | P.CNNES ---
History of Present Illness Consult date: 03/03/24 Requesting physician: Kvng Duvall Reason for Consult: Difficulty ambulating with perceived proximal lower extremity weakness bila History of Present Illness: Patient is a 73-year-old female with history of COPD, degenerative disc disease, came to the hospital on 02/29/2024 at 12:10 PM for intractable diarrhea, and lowe r extremity weakness. Patient was able to provide history in detail as below. Patient states that she was doing fine usually walks normally without any assistive device, although has some limitation because of her COPD. On 02/27/2024, (2 days prior to arrival), she woke up in the morning, rolled on her side of the bed and could not get up, could not walk. She also at the same time started having a bad diarrhea. She crawled to the bathroom, could not use legs, as it would fold under her. She stayed home, but the diarrhea would not stop and she continued to be weak. She was having 10 bowel movements per day, and it was yellow, watery, with little amount of substance in it. No blood. As the symptoms persisted, she decided to come to the ER. Patient is complaining of weakness of the legs and numbness of the left lower lateral thigh region, in the distribution of lower lateral cutaneous nerve of thigh. Vital signs on arrival blood pressure 111/75, pulse rate 104, temperature 98.1. Blood test shows WBC 12.2, which came down to an 8.28. Hemoglobin is normal, platelets normal. PT PTT normal, sodium normal, potassium 3.2, BUN 28, creatinine 1.08. Hepatic panel is normal. UA shows positive nitrite, but negative leukocyte esterase. Many bacteria. Influenza screen, RSV and coronavirus PCR negative. C. difficile antibody negative. CT of abdominal pelvis performed same day was normal. Patient also has chronic back pain due to "ruptured disc". Patient also has h istory of hip replacement. MRI of the lumbar spine revealed overall findings not significantly changed from 10/19/2022. No evidence for cauda equina syndrome. Spinal canal stenosis is present L2-L3 with mild stenosis. Right central disc protrusion at L2-L3 with severe right and moderate left neural foraminal stenosis. Multilevel disc degeneration with associated osteoarthritic changes. Grade 1 anterolisthesis of L4 on L5 and L5 on S1. She has seen pain specialist, who performed lumbar epidural steroid injection at L2-L3 level today. Patient states that she has been feeling better since then. Patient had about 7 times diarrhea last night. Patient states that today her legs are getting stronger. No new numbness or tingling. Patient has history of smoking cigarettes 1 pack/day for 30 years, off and on, quit 10 years ago. Denies any alcohol use. 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 Review of Systems Constitutional: Reports weight gain, Denies chills, Denies fever Eyes: denies blurred vision, denies diplopia, denies pain, denies loss of vision Ears: deny: decreased hearing, ear discharge Ears, nose, mouth and throat: Reports headache (migraines), Reports nasal congestion, Denies vertigo Cardiovascular: Reports shortness of breath, Denies chest pain Respiratory: Denies cough Gastrointestinal: Reports bloating, Reports diarrhea, Denies abdominal pain, Denies nausea, Denies vomiting Genitourinary: Denies dysuria, Denies urge incontinence, Denies urgency Musculoskeletal: Reports low back pain, Reports neck pain Musculoskeletal: left: shoulder pain, bilateral: knee pain Integumentary: Denies pruritus, Denies rash Neurological: Reports as per HPI Endocrine: Reports fatigue, Reports weight change Hematologic/Lymphatic: Reports easy bruising, Denies easy bleeding Past Medical History Past Medical History: Asthma, COPD, Fibromyalgia, Hyperlipidemia, Hypertension, Osteoarthritis (OA), Pneumonia, Renal Disease Additional Past Medical History / Comment(s): Pt recently admitted to [facility] on 02/26/22 with facial cellulitis and also had an allergic reaction to vancomycin. Other Hx: Bronchitis, migraines, chronic low back pain/L5 fracture, osteoporosis, nasal fractures/deviated septum, kidney stones, UTI. History of Any Multi-Drug Resistant Organisms: None Reported MDRO Source:: face Past Surgical History: Adenoidectomy, Breast Surgery, Orthopedic Surgery, Tonsillectomy Additional Past Surgical History / Comment(s): R total hip arthroplasty d/t avascular necrosis, L breast benign bx Past Anesthesia/Blood Transfusion Reactions: No Reported Reaction Smoking Status: Vaper - Past Family History Father Family Medical History: CVA/TIA, Diabetes Mellitus Additional Family Medical History / Comment(s): Father had a massive MT in his late 60s or early 70s Mother Family Medical History: Myocardial Infarction (MT) Additional Family Medical History / Comment(s): In her 70's had a heart attack Medications and Allergies Home Medications Medication Instructions Recorded Confirmed Type ALPRAZolam [Xanax] 0.5 mg PO TID 11/11/19 02/29/24 History Levothyroxine Sodium [Synthroid] 25 mcg PO DAILY 02/24/22 02/29/24 History SUMAtriptan succinate [Imitrex] 50 mg PO DAILY PRN 02/24/22 02/29/24 History Verapamil HCl [Verapamil ER] 180 mg PO DAILY 02/24/22 02/29/24 History ARIPiprazole [Abilify] 5 mg PO DAILY 02/29/24 02/29/24 History Albuterol Inhaler [Ventolin Hfa 1 - 2 puff INHALATION RT-Q6H PRN 02/29/24 02/29/24 History Inhaler] Ascorbic Acid [Vitamin C] 500 mg PO DAILY 02/29/24 02/29/24 History Atomoxetine HCl [Strattera] 25 mg PO DAILY 02/29/24 02/29/24 History Cyclobenzaprine [Flexeril] 5 mg PO TID PRN 02/29/24 02/29/24 History FLUoxetine HCL [PROzac] 20 mg PO DAILY 02/29/24 02/29/24 History Naproxen [EC-Naproxen] 375 mg PO BID PRN 02/29/24 02/29/24 History Pregabalin [Lyrica] 75 mg PO TID 02/29/24 02/29/24 History Rosuvastatin [Crestor] 10 mg PO DAILY 02/29/24 02/29/24 History Topiramate 25 mg PO DAILY 02/29/24 02/29/24 History Tretinoin/Emollient Base 1 applic TOPICAL DAILY 02/29/24 02/29/24 History [Tretinoin 0.05% Emollient Crm] buPROPion XL [Wellbutrin XL] 300 mg PO DAILY 02/29/24 02/29/24 History hydroCHLOROthiazide [Hydrodiuril] 25 mg PO DAILY 02/29/24 02/29/24 History oxyCODONE-APAP 5-325MG [Percocet 1 tab PO TID 04/29/24 04/29/24 History 5-325 mg] Allergies Allergy/AdvReac Type Severity Reaction Status Date / Time vancomycin Allergy Rash/Hives Verified 03/03/24 12:20 Physical Examination - Vital Signs Vital Signs: Vital Signs Temp Pulse Pulse Resp BP Pulse Ox 03/03/24 12:21 97.7 F 89 16 94/59 97 03/03/24 11:43 80 03/03/24 11:30 80 03/03/24 08:25 80 03/03/24 08:15 80 03/03/24 07:08 98.2 F 74 19 139/84 97 03/03/24 03:55 80 03/03/24 03:43 74 03/03/24 02:05 99 111/68 03/03/24 01:54 72 18 156/81 97 03/02/24 21:52 76 03/02/24 21:40 80 03/02/24 20:00 97.7 F 105 H 18 142/80 98 03/02/24 15:54 76 03/02/24 15:42 76 Intake and Output 03/02/24 03/03/24 03/03/24 22:59 06:59 14:59 Other: Voiding Method Bedside Commode Diaper # Voids 2 3 # Bowel Movements 1 6 Patient is an elderly female, very pleasant, in no acute distress. Patient is alert awake oriented to time place and person. Speech and language functions are normal. Patient can name and repeat very well. No aphasia or dysarthria. Attention, concentration and fund of knowledge is adequate. On cranial nerve examination, pupils are equal, round and reacting to light, visual jonas are full on confrontation, with no neglect on double simultaneous stimulation. Extraocular muscles are intact with no nystagmus. Face is symmetr ic, tongue protrudes to the midline. Palatal elevation and sensation normal, hearing and shoulder shrug normal, facial sensation normal. On muscle strength testing, there is no pronator drift and the strength is normal in arms and legs distally and proximally. Deep tendon reflexes are symmetric 2 at the biceps, 2 brachioradialis, 2 at the knees, 2 ankles and plantars downgoing bilaterally. Sensory to touch is equal with no neglect on double simultaneous stimulation. Cerebellar function showed no ataxia for [id number] testing. No dysdiadochokinesia. No ataxia for [id number] testing on either side. Tone and bulk of muscles normal. Gait attempted. Patient walks fairly stable. On general examination, there is no carotid bruit or murmur, S1-S2 audible. Chest is clear on consultation. Abdomen is soft nontender. No organomegaly, bowel sounds present. Peripheral pulses are present. No peripheral edema. Results - Laboratory Findings CBC and BMP: 03/04/24 06:11 03/01/24 16:41 Abnormal Lab Findings: Abnormal Labs 02/29/24 02/29/24 02/29/24 14:59 14:59 14:59 WBC 12.2 H RBC Hgb Hct MCHC Neutrophils # 9.5 H PT 9.8 L Potassium 3.2 L Chloride 109 H Carbon Dioxide BUN 28 H Creatinine 1.08 H BUN/Creatinine Ratio POC Glucose (mg/dL) Calcium Total Bilirubin Total Protein Albumin Ur Specific [place] Urine Protein Urine Nitrite Amorphous Sediment Urine Bacteria Hyaline Casts Urine Mucus Urine Yeast (Budding) 03/01/24 03/01/24 03/01/24 03:06 06:13 06:13 WBC RBC 3.21 L Hgb 9.5 L Hct 30.3 L MCHC 31.4 L Neutrophils # PT Potassium 3.1 L Chloride 113 H Carbon Dioxide 18.8 L BUN Creatinine BUN/Creatinine Ratio 22.57 H POC Glucose (mg/dL) Calcium 8.2 L Total Bilirubin 0.2 L Total Protein 5.0 L Albumin 3.3 L Ur Specific [place] 1.050 H Urine Protein Trace H Urine Nitrite Positive H Amorphous Sediment Rare H Urine Bacteria Many H Hyaline Casts 11 H Urine Mucus Rare H Urine Yeast (Budding) Few H 03/01/24 03/01/24 03/02/24 16:57 20:45 07:10 WBC RBC Hgb Hct MCHC Neutrophils # PT Potassium Chloride Carbon Dioxide BUN Creatinine BUN/Creatinine Ratio POC Glucose (mg/dL) 152 H 147 H 145 H Calcium Total Bilirubin Total Protein Albumin Ur Specific [place] Urine Protein Urine Nitrite Amorphous Sediment Urine Bacteria Hyaline Casts Urine Mucus Urine Yeast (Budding) 03/02/24 03/02/24 03/02/24 12:04 17:11 20:09 WBC RBC Hgb Hct MCHC Neutrophils # PT Potassium Chloride Carbon Dioxide BUN Creatinine BUN/Creatinine Ratio POC Glucose (mg/dL) 122 H 154 H 133 H Calcium Total Bilirubin Total Protein Albumin Ur Specific [place] Urine Protein Urine Nitrite Amorphous Sediment Urine Bacteria Hyaline Casts Urine Mucus Urine Yeast (Budding) 03/03/24 03/03/24 07:11 11:14 WBC RBC Hgb Hct MCHC Neutrophils # PT 9.7 L Potassium Chloride Carbon Dioxide BUN Creatinine BUN/Creatinine Ratio POC Glucose (mg/dL) 130 H Calcium Total Bilirubin Total Protein Albumin Ur Specific [place] Urine Protein Urine Nitrite Amorphous Sediment Urine Bacteria Hyaline Casts Urine Mucus Urine Yeast (Budding) Assessment and Plan Assessment: * New onset lower extremity weakness with difficulty ambulation, unclear cause. Symptoms started at the same time she started having severe diarrhea. Uncert ain if related to any viral infection, or electrolyte imbalance (hypokalemia). Patient's examination is normal. * Hypokalemia * Hypertension * Hyperlipidemia * Lumbar spondylosis with grade 1 anterolisthesis of L4 on L5 and L5 on S1. * Osteoarthritis * History of right total hip arthroplasty due to avascular necrosis. * COPD * Ex tobacco use Plan: * Patient's leg weakness is of unclear cause. Patient's examination is normal. Her reflexes are completely intact, with no evidence of [place] syndrome. * MRI of the lumbar spine revealed overall findings not significantly changed from 10/19/2022. No evidence for cauda equina syndrome. Spinal canal stenosis is present L2-L3 with mild stenosis. Right central disc protrusion at L2-L3 with severe right and moderate left neural foraminal stenosis. Multilevel disc degeneration with associated osteoarthritic changes. Grade 1 anterolisthesis of L4 on L5 and L5 on S1. * Patient is status post lumbar epidural steroid injection at L2-L3 level and is now feeling much better. * We will check TSH, B12, folate, MMA, B6, CK and hemoglobin A1c * PT OT, evaluate gait. Her gait is improving since she underwent epidural corticosteroid injection. * We will follow clinically. Thank you for the consult.
--- NOTE | 2024-03-04 09:34 | P.CONS ---
History of Present Illness - Reason for Consult Consult date: 03/04/24 - History of Present Illness Patient is a 73 yo F who presented to the ER with history of hypertension, hyperlipidemia, hypothyroidism, chronic neuropathy, ADD, depression, COPD presented to the ED for c/o lower extremity weakness along with weakness of the sphincters with incontinence to stool and urine become more progressive last 2 days with much worsening symptoms. There originally was concern for cauda equina syndrome. She ended up undergoing CT of the lumbar spine which shows multiple degenerative disc change with vacuum disc phenomenon presented at the L2-3, L4- 5, and L5-S1. She had disc bulging with mild anterior thecal sac compression of the L4-L5. Recently CT of the abdomen pelvis did not show any acute problem or finding. MRI was ordered of L spine that showed bulging disc at L2--3 with lumbar facet arthropathy, multilevel lumbar degenerative disc disease and multilevel lumbar facet arthropathy. She underwent L2-3 LESI with pain mgmt. She was evaluated by PT and completed bed mobility independently and did well with supervision for transfers and gait 150 feet with walker. She was determined to be safe for d/c home and could benefit from use of RW for gait safety. She was living with her daughter but per EMR, daughter kicked her out of the home. Per SW pt staying with her ex- and son. She is typically Independent with all adls, no assisted devices. Past Medical History Past Medical History: Asthma, COPD, Fibromyalgia, Hyperlipidemia, Hypertension, Osteoarthritis (OA), Pneumonia, Renal Disease Additional Past Medical History / Comment(s): Pt recently admitted to [facility] on 02/26/22 with facial cellulitis and also had an allergic reaction to vancomycin. Other Hx: Bronchitis, migraines, chronic low back pain/L5 fracture, osteoporosis, nasal fractures/deviated septum, kidney stones, UTI. History of Any Multi-Drug Resistant Organisms: None Reported MDRO Source:: face Past Surgical History: Adenoidectomy, Breast Surgery, Orthopedic Surgery, Tonsillectomy Additional Past Surgical History / Comment(s): R total hip arthroplasty d/t avascular necrosis, L breast benign bx Past Anesthesia/Blood Transfusion Reactions: No Reported Reaction Smoking Status: Vaper - Past Family History Father Family Medical History: CVA/TIA, Diabetes Mellitus Additional Family Medical History / Comment(s): Father had a massive HI in his late 60s or early 70s Mother Family Medical History: Myocardial Infarction (HI) Additional Family Medical History / Comment(s): In her 70's had a heart attack Medications and Allergies Home Medications Medication Instructions Recorded Confirmed Type ALPRAZolam [Xanax] 0.5 mg PO TID 11/11/19 02/29/24 History Levothyroxine Sodium [Synthroid] 25 mcg PO DAILY 02/24/22 02/29/24 History SUMAtriptan succinate [Imitrex] 50 mg PO DAILY PRN 02/24/22 02/29/24 History Verapamil HCl [Verapamil ER] 180 mg PO DAILY 02/24/22 02/29/24 History ARIPiprazole [Abilify] 5 mg PO DAILY 02/29/24 02/29/24 History Albuterol Inhaler [Ventolin Hfa 1 - 2 puff INHALATION RT-Q6H PRN 02/29/24 02/29/24 History Inhaler] Ascorbic Acid [Vitamin C] 500 mg PO DAILY 02/29/24 02/29/24 History Atomoxetine HCl [Strattera] 25 mg PO DAILY 02/29/24 02/29/24 History Cyclobenzaprine [Flexeril] 5 mg PO TID PRN 02/29/24 02/29/24 History FLUoxetine HCL [PROzac] 20 mg PO DAILY 02/29/24 02/29/24 History Naproxen [EC-Naproxen] 375 mg PO BID PRN 02/29/24 02/29/24 History Pregabalin [Lyrica] 75 mg PO TID 02/29/24 02/29/24 History Rosuvastatin [Crestor] 10 mg PO DAILY 02/29/24 02/29/24 History Topiramate 25 mg PO DAILY 02/29/24 02/29/24 History Tretinoin/Emollient Base 1 applic TOPICAL DAILY 02/29/24 02/29/24 History [Tretinoin 0.05% Emollient Crm] buPROPion XL [Wellbutrin XL] 300 mg PO DAILY 02/29/24 02/29/24 History hydroCHLOROthiazide [Hydrodiuril] 25 mg PO DAILY 02/29/24 02/29/24 History oxyCODONE-APAP 5-325MG [Percocet 1 tab PO TID 02/29/24 02/29/24 History 5-325 mg] Allergies Allergy/AdvReac Type Severity Reaction Status Date / Time vancomycin Allergy Rash/Hives Verified 03/03/24 12:20 Physical Exam Vitals: Vital Signs Temp Pulse Pulse Resp BP Pulse Ox 03/04/24 09:11 80 03/04/24 09:02 84 03/04/24 02:00 98 F 74 16 101/59 92 L 03/03/24 20:00 97.8 F 91 16 142/78 93 L 03/03/24 15:39 80 03/03/24 15:29 88 03/03/24 13:45 97.7 F 89 17 118/73 95 03/03/24 12:21 97.7 F 89 16 94/59 97 03/03/24 11:43 80 03/03/24 11:30 80 Intake and Output 03/03/24 03/04/24 03/04/24 22:59 06:59 14:59 Intake Total 540 Balance 540 Intake: Oral 540 Other: Voiding Method Bedside Commode Diaper # Voids 2 3 # Bowel Movements 3 Chart review, therefore no PE was done. Results CBC & Chem 7: 03/04/24 06:11 03/04/24 06:11 Labs: Abnormal Lab Results - Last 24 Hours (Table) 03/03/24 03/03/24 03/03/24 Range/Units 11:14 13:49 17:06 WBC (3.8-10.6) k/uL RBC (3.80-5.40) m/uL Hgb (11.4-16.0) gm/dL Hct (34.0-46.0) % PT 9.7 L (10.0-12.5) sec Potassium (3.5-5.5) mmol/L Chloride (96-109) mmol/L POC Glucose (mg/dL) 126 H 164 H (70-110) mg/dL Hemoglobin A1c (<=6.0) % Calcium (8.7-10.3) mg/dL Total Bilirubin (0.3-1.2) mg/dL Total Protein (6.2-8.2) g/dL Albumin (3.8-4.9) g/dL 03/03/24 03/04/24 03/04/24 Range/Units 20:18 06:11 06:11 WBC (3.8-10.6) k/uL RBC (3.80-5.40) m/uL Hgb (11.4-16.0) gm/dL Hct (34.0-46.0) % PT (10.0-12.5) sec Potassium 3.3 L (3.5-5.5) mmol/L Chloride 112 H (96-109) mmol/L POC Glucose (mg/dL) 121 H (70-110) mg/dL Hemoglobin A1c 6.1 H (<=6.0) % Calcium 8.6 L (8.7-10.3) mg/dL Total Bilirubin <0.2 L (0.3-1.2) mg/dL Total Protein 5.2 L (6.2-8.2) g/dL Albumin 3.5 L (3.8-4.9) g/dL 03/04/24 Range/Units 06:11 WBC 11.8 H (3.8-10.6) k/uL RBC 3.20 L (3.80-5.40) m/uL Hgb 9.8 L D (11.4-16.0) gm/dL Hct 31.4 L (34.0-46.0) % PT (10.0-12.5) sec Potassium (3.5-5.5) mmol/L Chloride (96-109) mmol/L POC Glucose (mg/dL) (70-110) mg/dL Hemoglobin A1c (<=6.0) % Calcium (8.7-10.3) mg/dL Total Bilirubin (0.3-1.2) mg/dL Total Protein (6.2-8.2) g/dL Albumin (3.8-4.9) g/dL Assessment and Plan Assessment: Patient is a 73 yo F with lumbar spondylosis and lumbar stenosis who underwent L2-3 LESI with pain mgmt. #Gait abnormality secondary to lumbar stenosis -Was able to walk 200 ft with RW. Safe for dc home -Recommend dc with RW. #Pain mgmt -Continue with flexeril 5 mg TID PRN, percocet 5-325mg TID PRN, DC iv morphine for DC planning home. #Hypothyroidism -continue levothyroxine 25 mcg daily #Opioid induced constipation -Recomend senna 2 tabs qhs and colace 50 mg BID to avoid OIC #COPD -DUOnebs prn, continue #Hypertension -Continue current med mgmt Mara Carey PM&R
[2024-03-04] MEDS: metroNIDAZOLE-NS PMX 500 MG in SALINE 1 100ML.BAG IVPB SCH (09:36)
[2024-03-04 11:19] LABS: Cryptosporidium Antigen Negative (Negative)
[2024-03-04 12:17] LABS: Glucose,Whole Blood 111 mg/dL (70-110)
[2024-03-04 12:53] LABS: Appearance,Urine Clear (Clear); Bacteria,Urine Rare /hpf; Bilirubin,Urine Negative (Negative); Blood,Urine Negative (Negative); Color,Urine Colorless; Glucose,Urine (UA) Negative (Negative); Ketones,Urine Negative (Negative); Leukocyte Esterase,Urine Small (Negative); Nitrite,Urine Negative (Negative); Protein,Urine Negative (Negative); RBC,Urine 1 /hpf (0-5); Specific Gravity,Urine 1.017 (1.001-1.035); Urobilinogen,Urine <2.0 mg/dL (<2.0); WBC,Urine 3 /hpf (0-5)
--- NOTE | 2024-03-04 14:03 | P.PN ---
Subjective Progress Note Date: 03/04/24 Principal diagnosis: Diarrhea This is a pleasant 73-year-old female who presented to the emergency department with concerns for lower extremity weakness, difficulty walking with diarrhea and incontinence of stool. She has a past medical history including asthma, COPD, fibromyalgia, hyperlipidemia, hypertension, osteoarthritis, and chronic renal disease. She states symptoms started about 4 days ago she started having weakness in her legs and was unsteady on her feet. She then started having diarrhea states 10-15 times a day with loss of continence. She denied any nausea or vomiting, no blood in her stool. States that initially she had no pain but now she is having some lower abdominal cramping and some gassy feeling. She denies any fevers or chills. Denies any recent sick contacts or traveling. No recent antibiotics or new medications. She did have an increase in her dose of Prozac. She was seen by screening specialist Dr. Hernandez and had undergone CT of the back as well as MRI and has ruled out cauda equina syndrome. She does have acute compression in the lumbar spine. She had a CT of the abdomen pelvis that had no acute findings. Stool C. difficile I will negative. Patient states she has never had a colonoscopy, she did have a Cologuard that was negative. 03/04/2024 Patient seen and examined today as a follow-up. She states she has had multiple episodes of diarrhea throughout the night. She states it is nonbloody. She has got lower abdominal cramping. No nausea or vomiting. She has been afebrile. WBC 11.8 hemoglobin 9.8 platelet count 254,000 sodium 145 potassium 3.3 BUN 16 creatinine 0.9. Stool cryptosporidium and Giardia antigen both negative. Stool cultures pending. Patient underwent epidural injection yesterday Objective - Vital Signs Vital signs: Vital Signs Temp 98 F 03/04/24 02:00 Pulse 74 03/04/24 02:00 Resp 16 03/04/24 02:00 BP 101/59 03/04/24 02:00 Pulse Ox 92 L 03/04/24 02:00 FiO2 Intake & Output 03/03/24 03/03/24 03/04/24 06:59 18:59 06:59 Intake Total 540 Balance 540 Intake: Oral 540 Other: Voiding Method Bedside Commode Bedside Commode Diaper Diaper # Voids 3 2 3 # Bowel Movements 6 4 3 - Exam General appearance: The patient is alert, oriented, appears in no acute distress. HET: Head is normocephalic and atraumatic. Conjunctiva pink. Sclera anicteric. Neck: Supple without lymphadenopathy. Abdomen: Soft, lower abdominal tenderness, nondistended. Extremities: Normal skin color and turgor. No pedal edema Skin: No rashes, no jaundice Neurological: No focal deficits. Alert and oriented. - Labs CBC & Chem 7: 03/04/24 06:11 03/04/24 06:11 Labs: Abnormal Lab Results - Last 24 Hours (Table) 03/03/24 03/03/24 03/03/24 Range/Units 07:11 11:14 13:49 PT 9.7 L (10.0-12.5) sec POC Glucose (mg/dL) 130 H 126 H (70-110) mg/dL 03/03/24 03/03/24 Range/Units 17:06 20:18 PT (10.0-12.5) sec POC Glucose (mg/dL) 164 H 121 H (70-110) mg/dL Assessment and Plan (1) Diarrhea Narrative/Plan: 73-year-old female presenting with acute onset lower extremity weakness and gait imbalance and diarrhea. They have ruled out cauda equina syndrome. Unclear etiology of diarrhea. CT abdomen pelvis with no acute findings. No new medications however she states that they did increase her dose of Prozac. No recent antibiotic use. Stool C. difficile negative. With acute onset likely gastroenteritis, infectious diarrhea. Will obtain stool cultures. Increase Imodium to 4 mg every 6 hours scheduled. Will discontinue Questran. Continue Imodium. Current Visit: Yes Status: Acute Code(s): R19.7 - DIARRHEA, UNSPECIFIED SNOMED Code(s): 43324971 (2) Lower extremity weakness Current Visit: Yes Status: Acute Code(s): R29.898 - OTH SYMPTOMS AND SIGNS INVOLVING THE MUSCULOSKELETAL SYSTEM SNOMED Code(s): 364710225 Plan: 1. Continue symptomatic and supportive care 2. Diet as tolerated 3. Obtain stool cultures 4. Imodium increased to 4 mg every 4 times daily scheduled 5. Questran discontinued 6. Will start IV Flagyl for diarrhea 7. Replace potassium per protocol 8. No plans on endoscopic evaluation at this time. Recommend outpatient follow-up with gastroenterology if diarrhea continues. Thank you for allowing us to participate in the care of the patient, the GI service will sign off, gastroenterology will not be available at the hospital this weekend and through next week. If further evaluation by gastroenterology is required the patient will need transfer as per the primary team's discretion. Dr. Mello Cramer I agree with the dictator's note, documented as a scribe by Jennifer Rosado.
[2024-03-04 17:26] LABS: Glucose,Whole Blood 154 mg/dL (70-110)
[2024-03-04 20:47] LABS: Glucose,Whole Blood 168 mg/dL (70-110)
[2024-03-05 07:02] LABS: Glucose,Whole Blood 103 mg/dL (70-110)
--- NOTE | 2024-03-05 07:33 | P.PN ---
Subjective Progress Note Date: 03/04/24 HISTORY OF PRESENT ILLNESS: 73-year-old [address] 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 who presented to the emergency department at [facility] for complaining of lower extremity weakness along with weakness of the sphincters with incontinence to stool and urine become more progressive last 2 days with much worsening symptoms has been having worsening lower back pain with no history of trauma to the back recently. Original presentation sounds like diarrhea at the time of the patient really was having more incontinence. Ended up going for CT of the lumbar spine which shows multiple degenerative disc change with vacuum disc phenomenon presented at the L2-3, L4-5, and L5/S1. She had disc bulging with mild anterior thecal sac compression of the L4-L5 which most likely causing her symptoms. Recently CT of the abdomen pelvis did not show any acute problem or finding. Laboratory value WBC 12.2 hemoglobin 11.5 hematocrit 35.9 platelet count 274 with normal sodium at 140 potassium 3.2 chloride 109 bun 28 creatinine 1.08 with normal liver function test lactic acid phosphorus magnesium and respiratory infection were negative for influenza A, RSV and COVID-19. She was started on pain meds at the time along with muscle relaxer and admit patient for possible need to go for urg ent surgery will release pressure of the lumbar spine. MRI lumbar spine will schedule for LEILA. March 02, 2024: Fortunately overnight with patient being on steroid has improved si gnificantly she has better control of her sphincter and pain and discomfort has improved. MRI of the lumbar spine was done no evidence for cauda equina syndrome she had L2-3 mild spinal canal stenosis with a right paracentral disc protrusion with severe right and moderate left neural foraminal stenosis. The patient did not require to go for any urgent surgery at this point. Will continue current medical management, patient might benefit from having brace as well. Still waiting for her C. difficile which I believe patient is having formed stool the lab refused to run the specimen. March 03, 2024: Patient slightly with relapse and having more Incontinence today pain is controlled with medication. I agreed to move on to consult gastroenterology for her diarrhea her C. difficile was negative will continue symptomatic support along with Imodium and stool culture on Questran was started. Also consult pain management doctor on the very for possible epidural injection and the plan was to do a fluoroscopy guided L2-L3 epidural injection risk benefits was discussed with the patient and patient ended up having epidural shortly in the afternoon on March 03, 2024. Continue to titrate physical therapy and patient will be probably benefit from considering either inpatient rehab or SNF when she is ready to leave the hospital. March 04, 2024: She ended up seen pain management yesterday Dr. Hansen he ended up doing epidural injection the patient had some relief with her symptoms. Still having severe diarrhea and uncontrollable incontinence,Testing including C. difficile came back negative stool for culture ova and parasite still pending at this point. With the severity of her diarrhea keep having hypokalemia on replacement therapy still seen gastroenterology with her lower abdominal pain no nausea or vomiting and she was afebrile we will continue hydration, continue Imodium and Questran plus try Flagyl for diarrhea replace potassium continue current management no plan for endoscopy at this point with gastroenterology and further GI can be done as an outpatient specially GI services negative be available after today. Mobility still significantly decreased patient will be seen physiatry for possible inpatient rehab same time orthopedic decide to switch service to general medicine and for them to be on consult since and again do any surgery at this point continue on steroid which can be probably switch to oral and patient will need further help either for inpatient rehab or SNF with help. REVIEW OF SYSTEMS: CONSTITUTIONAL: Well-developed no acute respiratory distress. EYES: No icterus sclerae, no conjunctivitis. EARS, NOSE, MOUTH, THROAT, and FACE: No sore throat, lymphadenopathy, carotid bruits or deformity. RESPIRATORY: No SOB cough or wheezes. CARDIOVASCULAR: No CP, Palpitation, PND, Orthopnea, or angina. GASTROINTESTINAL: No Abd pain, Nausea or vomiting, no Diarrhea or constipation, No GI Bleed, no distention or masses. GENITOURINARY: Negative for Hematuria or UTI, no kidney stones. INTEGUMENT/BREAST: Negative for any muscular injury with mild osteoarthritis.. HEMATOLOGIC/LYMPHATIC: Negative for bleed or purpura. MUSCULOSKELTAL: Positive myalgia and arthralgia. NEURLOGICAL: Positive lower extremity weakness with simple weakness bilaterally. BEHAVIORAL/PSYCH: Severe depression. ENDOCRINE: Negative. PHYSICAL EXAMINATION: General Appearance: Alert, cooperative, no distress, appears stated age. Neck HEENT: Supple, no lymphadenopathy, no thyroid enlargement, no carotid bruits. Lungs: Decreased breath sound bilaterally found hyposmotic slight wheezes. Chest Wall: Decreased expansion with deep inspiration no tenderness and no deformity was found on exam, no costochondral pain or discomfort. Heart: Regular rate and rhythm, S1, S2 normal, no murmur, rub or gallop. Back: Symmetric, no curvature, ROM normal, no CVA tenderness. Abdomen: Soft, non-tender, bowel sounds active all four quadrants, no masses, no organomegaly. Extremities: Extremities normal, atraumatic, no cyanosis or edema. Pulses: 2+ and symmetric. Skin: Skin color, texture, tugor normal, no rashes or lesions. Neurologic: Alert oriented x3 cranial nerves II through XII intact, positive weakness of the lower extremity not able to do gait and balance exam. ASSESSMENT AND PLAN: _Acute compression of lumbar spine especially L2-L3, and severe spinal stenosis causing acute symptoms, symptom was improved little bit with steroid initially patient ended up seeing pain management had epidural injection which had helped some. _Incontinence of urine and stool: Most likely the effect of spinal stenosis and severity of her lumbar spine she is back having incontinence workup still with C. difficile diagnosis and Cryptosporidium came back negative. Continue symptoms control with Imodium hydration apparently GI are not planning for any workup as an inpatient agreed to initiate Flagyl initially IV can be switched to oral in 24 hours. _Asthma/COPD: Continue albuterol/ipratropium continue to watch oxygen level will add steroid inhaler as well. _Hypertension: Resume verapamil 180 mg daily try to keep systolic blood pressure below 140. _ JJ: Has been much better and improved continue support for hypokalemia. _ Severe Neuropathy of the Lower Exts: will stay on Lyrica for now. _ Hypokalemia: Replacement Therapy will be done. _Hyperlipidemia: Remain on atorvastatin 20 mg a day. _ Diarrhea: will do C diff and anti Diarrhea meds for now. _Chronic depression and bipolar disorders: Has been on Abilify, Wellbutrin XL, paroxetine And Topamax. _Hypothyroidism: Continue levothyroxine 25 mcg daily. _Chronic pain syndrome: Has been on hydrocodone along with Flexeril. Prognosis: Fair. Discussion had epidural injection, seen gastro continue to watch for diarrhea and incontinence, agreed to switch service to general medicine, will consult physiatry for possible inpatient rehab otherwise even Ortho with Dr. Duvall service not planning to do any intervention at this point. Objective - Vital Signs Vital signs: Vital Signs Temp 98 F 03/04/24 02:00 Pulse 74 03/04/24 02:00 Resp 16 03/04/24 02:00 BP 101/59 03/04/24 02:00 Pulse Ox 92 L 03/04/24 02:00 FiO2 Intake & Output 03/03/24 03/03/24 03/04/24 06:59 18:59 06:59 Intake Total 540 Balance 540 Intake: Oral 540 Other: Voiding Method Bedside Commode Bedside Commode Diaper Diaper # Voids 3 2 3 # Bowel Movements 6 4 3 - Labs CBC & Chem 7: 03/04/24 06:11 03/04/24 06:11 Labs: Abnormal Lab Results - Last 24 Hours (Table) 03/03/24 03/03/24 03/03/24 Range/Units 07:11 11:14 13:49 PT 9.7 L (10.0-12.5) sec POC Glucose (mg/dL) 130 H 126 H (70-110) mg/dL 03/03/24 03/03/24 Range/Units 17:06 20:18 PT (10.0-12.5) sec POC Glucose (mg/dL) 164 H 121 H (70-110) mg/dL
--- NOTE | 2024-03-05 08:57 | P.PN ---
Progress Note - Text Progress Note Date: 03/05/24 History of present illness: Patient is a pleasant 73-year-old female who is seen and examined at bedside for follow-up evaluation of her lumbar spine. We previously reviewed her lumbar MRI imaging. Yesterday she was able to undergo an injection with pain management. She states since that time her right lower extremity leg pain has significantly improved. She does feel she is ambulating better. She does continue to utilize a walker to aid in ambulation. She states she still falls to the right when standing on her left lower extremity but that has improved following her recent injection. Currently, she has some chronic low back pain but her low back pain is fairly well-controlled. This morning, she states her back pain is only minimally improved but she is able to walk more than on admission. She states she is voiding without any significant difficulty. She is not currently complaining of lower extremity weakness or radiculopathy. She has good strength in her legs independently. She is able to perform good active range of motion of her lower extremities in bed without difficulty. She does not experience any significant pain while she is ambulating. She continues to be seen and examined by primary care provider. Patient is currently receiving Solu-Medrol 60 mg IV every 24 hours and Percocet 5 mg / 325 mg 3 times daily for pain control with benefit. Physical exam: Patient is awake, alert, and oriented 3 Vital signs stable Good chest excursion with deep inspiration and expiration Abdomen soft nontender Examination of lumbar spine reveals skin is intact with no abrasions, lacerations, or bruises; no erythema, purulence or signs of infection Small Band-Aid intact over epidural injection site Dorsiflexion, plantarflexion, and extensor hallucis longus positive sustained bilaterally Lower extremity strength 5/5 bilaterally Straight leg test negative bilateral lower extremities No signs or symptoms of DVT; no calf pain No pain with internal and external rotation of the hips bilaterally Patient is able to ambulate with the assistance of a walker but does fall towards the right when lifting her right lower extremity Pertinent studies: MRI of the lumbar spine taken on 03/01/2024: Overall findings have not significantly changed as compared to previous study taken on 10/19/2022; no evidence for cauda equina syndrome; L2-3 mild spinal canal stenosis with right paracentral disc protrusion with severe right and moderate left neural foraminal stenosis; L4-5 and L5-S1 grade 1 spondylolisthesis; multilevel degenerative disc disease Assessment: Chronic low back pain Unsteady gait L4-5 and L5-S1 grade 1 spondylolisthesis Lumbar degenerative disc disease L2-3 mild spinal canal stenosis with severe right and moderate left neuroforaminal stenosis Abdominal pain Diarrhea Hyperlipidemia Hypokalemia Hypertension Chronic pain syndrome Hypothyroidism Chronic depression bipolar disorder Severe neuropathy of the lower extremities Plan: 1. Patient has had some improvement of her symptoms following epidural injection at L2-3 with pain management. We previously reviewed her MRI imaging of her lumbar spine with her.. MRI imaging does show changes at L2-3, L4-5, and L5-S1 but does not show evidence for cauda equina syndrome. Her imaging also remains fairly stable as compared to previous study taken on 10/19/2022. She has some chronic low back pain but her low back pain is fairly well- controlled. States her abdominal pain is most significant at the middle towards the bottom of her abdomen. She was seen by medicine this morning. C. difficile testing was negative. They are planning for further stool evaluation for virus. She states she is voiding without any significant difficulty. She is not curr ently complaining of lower extremity weakness or radiculopathy. She has good strength in her legs independently. She is able to perform good active range of motion of her lower extremities in bed without difficulty. She is happy with her progress in regards to her lumbar spine and lower extremities. Prescription has been written, signed, and provided to case management to obtain a 2 wheeled walker. Patient does have difficulty with her ambulation and is unsteady with her gait. The 2 wheeled walker is required to help her increase her mobility and ambulation safely. Currently, we would plan to have her work through further conservative treatment options. We do not feel acute surgical intervention at her lumbar spine would provide significant improvement of her symptoms overall. She does have unsteadiness with her gait but feels she has had some improvement as compared to yesterday. She is encouraged to work with physical therapy to increase her mobility and ambulation. 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 Will also plan for consultation for case management for discharge planning. We will continue to follow the patient. She will be cleared for discharge once cleared by medicine. Currently, she is undergoing further evaluation for her abdomen and diarrhea. We would plan to have her follow-up in outpatient setting for further treatment evaluation. Patient may follow-up with Aleksandar Dos Santos PA-C or Dr. Chong Duvall at [facility] in 2-3 weeks following discharge. 2. Patient will continue be seen and examined by medicine for her multiple other medical diagnoses. She will continue with further evaluation for her ongoing abdominal pain and diarrhea.
[2024-03-05 09:23] LABS: HCT 30.9 % (37.2-46.3); HGB 9.6 g/dL (12.0-15.0); MCH 28.9 pg (27.0-32.0); MCHC 31.1 g/dL (32.0-37.0); MCV 93.1 FL (80.0-97.0); Mean Platelet Volume 11.4 FL (9.5-12.2); NRBC Per 100 WBC 0.05 X 10*3/uL (0.00-0.01); Platelet Count 267 X 10*3/uL (140-440); RBC 3.32 X 10*6/uL (4.10-5.20); RDW 15.1 % (11.5-14.5)
[2024-03-05 09:24] LABS: ALT 36 U/L (8-44); AST 35 U/L (13-35); Albumin 3.6 g/dL (3.8-4.9); Albumin/Globulin Ratio 2.12 Ratio (1.60-3.17); Alkaline Phosphatase 61 U/L (41-126); BUN/Creat Ratio 24.88 Ratio (12.00-20.00); Blood Urea Nitrogen 19.9 mg/dL (9.0-27.0); Calcium 8.8 mg/dL (8.7-10.3); Carbon Dioxide 25.2 mmol/L (21.6-31.8); Chloride 109 mmol/L (96-109); Globulin 1.7 g/dL (1.6-3.3); Glucose 104 mg/dL (70-110); Potassium 3.7 mmol/L (3.5-5.5); Sodium 144 mmol/L (135-145); Total Bilirubin <0.2 mg/dL (0.3-1.2); Total Protein 5.3 g/dL (6.2-8.2)
[2024-03-05 11:57] LABS: Glucose,Whole Blood 100 mg/dL (70-110)
--- NOTE | 2024-03-05 13:20 | P.PN ---
Subjective Progress Note Date: 03/05/24 73-year-old [address] 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 who presented to the emergency department at [facility] for complaining of lower extremity weakness along with weakness of the sphincters with incontinence to stool and urine become more progressive last 2 days with much worsening symptoms has been having worsening lower back pain with no history of trauma to the back recently. Original presentation sounds like diarrhea at the time of the patient really was having more incontinence. Ended up going for CT of the lumbar spine which shows multiple degenerative disc change with vacuum disc phenomenon presented at the L2-3, L4-5, and L5/S1. She had disc bulging with mild anterior thecal sac compression of the L4-L5 which most likely causing her symptoms. Recently CT of the abdomen pelvis did not show any acute problem or finding. Laboratory value WBC 12.2 hemoglobin 11.5 hematocrit 35.9 platelet count 274 with normal sodium at 140 potassium 3.2 chloride 109 bun 28 creatinine 1.08 with normal liver function test lactic acid phosphorus magnesium and respiratory infection were negative for influenza A, RSV and COVID-19. She was started on pain meds at the time along with muscle relaxer and admit patient for possible need to go for urgent surgery will release pressure of the lumbar spine. MRI lumbar spine will schedule for LEILA. March 02, 2024: Fortunately overnight with patient being on steroid has improved significantly she has better control of her sphincter and pain and discomfort has improved. MRI of the lumbar spine was done no evidence for cauda equina sy ndrome she had L2-3 mild spinal canal stenosis with a right paracentral disc protrusion with severe right and moderate left neural foraminal stenosis. The patient did not require to go for any urgent surgery at this point. Will continue current medical management, patient might benefit from having brace as well. Still waiting for her C. difficile which I believe patient is having formed stool the lab refused to run the specimen. March 03, 2024: Patient slightly with relapse and having more Incontinence today pain is controlled with medication. I agreed to move on to consult gastroenterology for her diarrhea her C. difficile was negative will continue symptomatic support along with Imodium and stool culture on Questran was started. Also consult pain management doctor on the very for possible epidural injection and the plan was to do a fluoroscopy guided L2-L3 epidural injection risk benefits was discussed with the patient and patient ended up having epidural shortly in the afternoon on March 03, 2024. Continue to titrate physical therapy and patient will be probably benefit from considering either inpatient rehab or SNF when she is ready to leave the hospital. March 04, 2024: She ended up seen pain management yesterday Dr. Hansen he ended up doing epidural injection the patient had some relief with her symptoms. Still having severe diarrhea and uncontrollable incontinence,Testing including C. difficile came back negative stool for culture ova and parasite still pending at this point. With the severity of her diarrhea keep having hypokalemia on replacement therapy still seen gastroenterology with her lower abdominal pain no nausea or vomiting and she was afebrile we will continue hydration, continue Imodium and Questran plus try Flagyl for diarrhea replace potassium continue current management no plan for endoscopy at this point with gastroenterology and further GI can be done as an outpatient specially GI services negative be available after today. Mobility still significantly decreased patient will be seen physiatry for possible inpatient rehab same time orthopedic decide to switch service to general medicine and for them to be on consult since and again do any surgery at this point continue on steroid which can be probably switch to oral and patient will need further help either for inpatient rehab or SNF with help. 5. Patient seen and examined. Blood work done this morning showed WBC 12.8, hemoglobin 9.6, platelet count 267, sodium 142, potassium 3.7, BUN 19.9, creatinine 0.8,. States diarrhea has improved. States back pain is also improved REVIEW OF SYSTEMS: CONSTITUTIONAL: No fever, no malaise,. CARDIOVASCULAR: No chest pain, no palpitations, no syncope. PULMONARY: No shortness of breath, no cough, GASTROINTESTINAL: No diarrhea, no nausea, no vomiting, no abdominal pain. NEUROLOGICAL: No headaches, no weakness, PHYSICAL EXAMINATION: GENERAL: The patient is alert and oriented x3, not in any acute distress. Well developed, well nourished. HEENT: Pupils are round and equally reacting to light. EOMI. No scleral icterus. No conjunctival pallor. Normocephalic, atraumatic. No pharyngeal erythema. No thyromegaly. CARDIOVASCULAR: S1 and S2 present. No murmurs, rubs, or gallops. PULMONARY: Chest is clear to auscultation, no wheezing or crackles. ABDOMEN: Soft, nontender, nondistended, normoactive bowel sounds. No palpable organomegaly. MUSCULOSKELETAL: No joint swelling or deformity. EXTREMITIES: No cyanosis, clubbing, or pedal edema. NEUROLOGICAL: Gross neurological examination did not reveal any focal deficits. SKIN: No rashes. Assessment and plan _Acute compression of lumbar spine especially L2-L3, and severe spinal stenosis causing acute symptoms, S/p epidural steroid injection. Continue pain management PT and OT following Physiatry consult _Incontinence of urine and stool: Most likely the effect of spinal stenosis and severity of her lumbar spine she is back having incontinence workup still with C. difficile diagnosis and Cryptosporidium came back negative. Continue symptoms control with Imodium, diarrhea resolved Continue Flagyl _Asthma/COPD: Continue albuterol/ipratropium continue to watch oxygen level will add steroid inhaler as well. _Hypertension: Continue verapamil 180 mg daily try to keep systolic blood pressure below 140. _ JJ: Has been much better and improved continue support for hypokalemia. _ Severe Neuropathy of the Lower Exts: will stay on Lyrica for now. _ Hypokalemia: Replacement Therapy will be done. _Hyperlipidemia: Remain on atorvastatin 20 mg a day. _ Diarrhea: Continue symptomatic treat treatment with Imodium, Flagyl _Chronic depression and bipolar disorders: Has been on Abilify, Wellbutrin XL, paroxetine And Topamax. _Hypothyroidism: Continue levothyroxine 25 mcg daily. _Chronic pain syndrome: Has been on hydrocodone along with Flexeril. Labs and medication were reviewed.. Continue same treatment. Continue with symptomatic treatment. Resume home medication. Monitor labs and vitals. DVT and GI prophylaxis. Further recommendations as per clinical course of the patient Dictation was produced using [employer]™ dictation software. please excuse any grammatical, word or spelling errors. Objective - Vital Signs Vital signs: Vital Signs Temp 98 F 03/05/24 07:00 Pulse 77 03/05/24 07:00 Resp 17 03/05/24 07:00 BP 133/81 05/04/24 07:00 Pulse Ox 93 L 03/05/24 07:00 FiO2 Intake & Output 03/04/24 03/05/24 03/05/24 18:59 06:59 18:59 Other: Voiding Method Bedside Commode Bedside Commode Diaper Diaper # Voids 3 3 1 # Bowel Movements 1 - Labs CBC & Chem 7: 03/05/24 03:50 03/05/24 03:50 Labs: Abnormal Lab Results - Last 24 Hours (Table) 03/04/24 03/04/24 03/04/24 Range/Units 12:16 12:35 17:25 WBC (4.50-10.00) X 10*3/uL RBC (4.10-5.20) X 10*6/uL Hgb (12.0-15.0) g/dL Hct (37.2-46.3) % MCHC (32.0-37.0) g/dL RDW (11.5-14.5) % NRBC/100 WBC Diff (0.00-0.01) X 10*3/uL BUN/Creatinine Ratio (12.00-20.00) Ratio POC Glucose (mg/dL) 111 H 154 H (70-110) mg/dL Total Bilirubin (0.3-1.2) mg/dL Total Protein (6.2-8.2) g/dL Albumin (3.8-4.9) g/dL Ur Leukocyte Esterase Small H (Negative) Urine Bacteria Rare H (None) /hpf 03/04/24 03/05/24 03/05/24 Range/Units 20:44 03:50 03:50 WBC 12.80 H (4.50-10.00) X 10*3/uL RBC 3.32 L (4.10-5.20) X 10*6/uL Hgb 9.6 L (12.0-15.0) g/dL Hct 30.9 L (37.2-46.3) % MCHC 31.1 L (32.0-37.0) g/dL RDW 15.1 H (11.5-14.5) % NRBC/100 WBC Diff 0.05 H (0.00-0.01) X 10*3/uL BUN/Creatinine Ratio 24.88 H (12.00-20.00) Ratio POC Glucose (mg/dL) 168 H (70-110) mg/dL Total Bilirubin <0.2 L (0.3-1.2) mg/dL Total Protein 5.3 L (6.2-8.2) g/dL Albumin 3.6 L (3.8-4.9) g/dL Ur Leukocyte Esterase (Negative) Urine Bacteria (None) /hpf
[2024-03-05 17:15] LABS: Glucose,Whole Blood 150 mg/dL (70-110)
[2024-03-05 20:00] LABS: Glucose,Whole Blood 193 mg/dL (70-110)
[2024-03-06 02:02] LABS: Glucose,Whole Blood 115 mg/dL (70-110)
[2024-03-06 07:33] LABS: Glucose,Whole Blood 93 mg/dL (70-110)
--- NOTE | 2024-03-06 10:19 | P.PN ---
Subjective Progress Note Date: 03/05/24 Patient was seen for a follow-up. Patient states that she is walking better. Getting around better. Continues to have numbness of the left lower lateral thigh region in the distribution of lower lateral cutaneous nerve of thigh. Diarrhea has resolved. Cryptosporidium and Giardia negative. Patient denies any numbness or tingling in the upper extremities or fingers. No numbness or tingling in the feet or lower legs, only the left lower lateral thigh region. No bowels or bladder issue. Objective - Vital Signs Vital signs: Vital Signs Temp 98 F 03/05/24 07:00 Pulse 77 03/05/24 07:00 Resp 17 03/05/24 07:00 BP 133/81 03/05/24 07:00 Pulse Ox 93 L 03/05/24 07:00 FiO2 Intake & Output 03/04/24 03/05/24 03/05/24 18:59 06:59 18:59 Other: Voiding Method Bedside Commode Bedside Commode Diaper Diaper # Voids 3 3 1 # Bowel Movements 1 - Exam Patient's mental status, speech and language functions are normal. Muscle strength is normal in the arms distally and proximally. In the lower limbs, her hip flexion is about 4 to 4-, and hip abduction 5-bilaterally. Patient's hip adduction, knee extension ankles and toes are normal. Reflexes are about 1 in the upper limbs. Knees are about 1 only, but does have significant cross adduction bilaterally. Ankles are 1+ and plantars downgoing. Sensory to touch is only decreased in the left lower lateral thigh region. - Labs CBC & Chem 7: 03/05/24 03:50 03/05/24 03:50 Labs: Abnormal Lab Results - Last 24 Hours (Table) 03/04/24 03/04/24 03/04/24 Range/Units 12:16 12:35 17:25 WBC (4.50-10.00) X 10*3/uL RBC (4.10-5.20) X 10*6/uL Hgb (12.0-15.0) g/dL Hct (37.2-46.3) % MCHC (32.0-37.0) g/dL RDW (11.5-14.5) % NRBC/100 WBC Diff (0.00-0.01) X 10*3/uL BUN/Creatinine Ratio (12.00-20.00) Ratio POC Glucose (mg/dL) 111 H 154 H (70-110) mg/dL Total Bilirubin (0.3-1.2) mg/dL Total Protein (6.2-8.2) g/dL Albumin (3.8-4.9) g/dL Ur Leukocyte Esterase Small H (Negative) Urine Bacteria Rare H (None) /hpf 03/04/24 03/05/24 03/05/24 Range/Units 20:44 03:50 03:50 WBC 12.80 H (4.50-10.00) X 10*3/uL RBC 3.32 L (4.10-5.20) X 10*6/uL Hgb 9.6 L (12.0-15.0) g/dL Hct 30.9 L (37.2-46.3) % MCHC 31.1 L (32.0-37.0) g/dL RDW 15.1 H (11.5-14.5) % NRBC/100 WBC Diff 0.05 H (0.00-0.01) X 10*3/uL BUN/Creatinine Ratio 24.88 H (12.00-20.00) Ratio POC Glucose (mg/dL) 168 H (70-110) mg/dL Total Bilirubin <0.2 L (0.3-1.2) mg/dL Total Protein 5.3 L (6.2-8.2) g/dL Albumin 3.6 L (3.8-4.9) g/dL Ur Leukocyte Esterase (Negative) Urine Bacteria (None) /hpf Assessment and Plan Assessment: * New onset lower extremity weakness with difficulty ambulation, unclear cause. Symptoms started at the same time she started having severe diarrhea. Uncertain if related to any viral infection, or electrolyte imbalance (hypokalemia). Patient's examination revealed decreased strength in the hip f lexion and hip abduction bilaterally. Reflexes are slightly decreased, however still present. No evidence of [place] syndrome at this time, but needs close watch. * Hypokalemia resolved * Hypertension * Hyperlipidemia * Lumbar spondylosis with grade 1 anterolisthesis of L4 on L5 and L5 on S1. * Osteoarthritis * History of right total hip arthroplasty due to avascular necrosis. * COPD * Ex tobacco use Plan: * Patient's leg weakness is of unclear cause. Her reflexes have slightly decreased as compared to initial examination. Need to keep a watch to rule out any inflammatory polyneuropathy. * MRI of the lumbar spine revealed overall findings not significantly changed from 10/19/2022. No evidence for cauda equina syndrome. Spinal canal stenosis is present L2-L3 with mild stenosis. Right central disc protrusion at L2-L3 with severe right and moderate left neural foraminal stenosis. Multilevel disc degeneration with associated osteoarthritic changes. Grade 1 anterolisthesis of L4 on L5 and L5 on S1. * Patient is status post lumbar epidural steroid injection at L2-L3 level and is now feeling much better. * TSH 0.503, B12 627, folate 7.4, CK 64 and hemoglobin A1c 6.1. MMA and B6 pending. * PT OT, evaluate gait. Her gait is improving since she underwent epidural corticosteroid injection. * Neurology will continue to follow. If the symptoms persist, recommend EMG nerve conduction of bilateral lower extremities as an outpatient.
[2024-03-06 10:25] LABS: Basophils # (A) 0.1 k/uL (0-0.2); Basophils % (A) 1 %; Eosinophils % (A) 0 %; HGB 11.4 gm/dL (11.4-16.0); Lymphocytes # (A) 1.3 k/uL (1.0-4.8); Lymphocytes % (A) 9 %; MCH 28.8 pg (25.0-35.0); MCHC 30.7 g/dL (31.0-37.0); MCV 93.7 fL (80.0-100.0); Mean Platelet Volume 8.5; Monocytes # (A) 0.9 k/uL (0-1.0); Monocytes % (A) 6 %; Neutrophils # (A) 11.4 k/uL (1.3-7.7); Neutrophils % (A) 82 %; Platelet Count 311 k/uL (150-450); RBC 3.95 m/uL (3.80-5.40); RDW 14.5 % (11.5-15.5); WBC 13.9 k/uL (3.8-10.6)
[2024-03-06 10:44] LABS: ALT 45 U/L (4-34); AST 44 U/L (14-36); African American GFR (CKD) 86 (>60 ml/min/1.73 sqM); Albumin 3.2 g/dL (3.5-5.0); Albumin/Globulin Ratio 1.4; Alkaline Phosphatase 67 U/L (38-126); Anion Gap 6 mmol/L; Blood Urea Nitrogen 25 mg/dL (7-17); Calcium 8.8 mg/dL (8.4-10.2); Carbon Dioxide 28 mmol/L (22-30); Chloride 106 mmol/L (98-107); Globulin 2.3 g/dL; Glucose 121 mg/dL (74-99); Non-African American GFR(CKD) 75 (>60 ml/min/1.73 sqM); Potassium 3.6 mmol/L (3.5-5.1); Sodium 140 mmol/L (137-145); Total Bilirubin 0.3 mg/dL (0.2-1.3); Total Protein 5.5 g/dL (6.3-8.2)
[2024-03-06 12:15] LABS: Glucose,Whole Blood 91 mg/dL (70-110)
--- NOTE | 2024-03-06 12:50 | P.PN ---
Subjective Progress Note Date: 03/06/24 73-year-old [address] 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 who presented to the emergency department at [facility] for complaining of lower extremity weakness along with weakness of the sphincters with incontinence to stool and urine become more progressive last 2 days with much worsening symptoms has been having worsening lower back pain with no history of trauma to the back recently. Original presentation sounds like diarrhea at the time of the patient really was having more incontinence. Ended up going for CT of the lumbar spine which shows multiple degenerative disc change with vacuum disc phenomenon presented at the L2-3, L4-5, and L5/S1. She had disc bulging with mild anterior thecal sac compression of the L4-L5 which most likely causing her symptoms. Recently CT of the abdomen pelvis did not show any acute problem or finding. Laboratory value WBC 12.2 hemoglobin 11.5 hematocrit 35.9 platelet count 274 with normal sodium at 140 potassium 3.2 chloride 109 bun 28 creatinine 1.08 with normal liver function test lactic acid phosphorus magnesium and respiratory infection were negative for influenza A, RSV and COVID-19. She was started on pain meds at the time along with muscle relaxer and admit patient for possible need to go for urgent surgery will release pressure of the lumbar spine. MRI lumbar spine will schedule for [facility]IL[facility]. March 02, 2024: Fortunately overnight with patient being on steroid has improved significantly she has better control of her sphincter and pain and discomfort has improved. MRI of the lumbar spine was done no evidence for cauda equina sy ndrome she had L2-3 mild spinal canal stenosis with a right paracentral disc protrusion with severe right and moderate left neural foraminal stenosis. The patient did not require to go for any urgent surgery at this point. Will continue current medical management, patient might benefit from having brace as well. Still waiting for her C. difficile which I believe patient is having formed stool the lab refused to run the specimen. March 03, 2024: Patient slightly with relapse and having more Incontinence today pain is controlled with medication. I agreed to move on to consult gastroenterology for her diarrhea her C. difficile was negative will continue symptomatic support along with Imodium and stool culture on Questran was started. Also consult pain management doctor on the very for possible epidural injection and the plan was to do a fluoroscopy guided L2-L3 epidural injection risk benefits was discussed with the patient and patient ended up having epidural shortly in the afternoon on March 03, 2024. Continue to titrate physical therapy and patient will be probably benefit from considering either inpatient rehab or SNF when she is ready to leave the hospital. March 04, 2024: She ended up seen pain management yesterday Dr. Hansen he ended up doing epidural injection the patient had some relief with her symptoms. Still having severe diarrhea and uncontrollable incontinence,Testing including C. difficile came back negative stool for culture ova and parasite still pending at this point. With the severity of her diarrhea keep having hypokalemia on replacement therapy still seen gastroenterology with her lower abdominal pain no nausea or vomiting and she was afebrile we will continue hydration, continue Imodium and Questran plus try Flagyl for diarrhea replace potassium continue current management no plan for endoscopy at this point with gastroenterology and further GI can be done as an outpatient specially GI services negative be available after today. Mobility still significantly decreased patient will be seen physiatry for possible inpatient rehab same time orthopedic decide to switch service to general medicine and for them to be on consult since and again do any surgery at this point continue on steroid which can be probably switch to oral and patient will need further help either for inpatient rehab or SNF with help. 5. Patient seen and examined. Blood work done this morning showed WBC 12.8, hemoglobin 9.6, platelet count 267, sodium 142, potassium 3.7, BUN 19.9, creatinine 0.8,. States diarrhea has improved. States back pain is also improved. 5. Patient seen and examined. Vital signs morning showed temperature 91.8, heart rate 73, respirations 17, blood pressure 150/89. Diarrhea has totally resolved. Denies any lightheadedness or dizziness. REVIEW OF SYSTEMS: CONSTITUTIONAL: No fever, no malaise,. CARDIOVASCULAR: No chest pain, no palpitations, no syncope. PULMONARY: No shortness of breath, no cough, GASTROINTESTINAL: No diarrhea, no nausea, no vomiting, no abdominal pain. NEUROLOGICAL: No headaches, no weakness, PHYSICAL EXAMINATION: GENERAL: The patient is alert and oriented x3, not in any acute distress. Well developed, well nourished. HEENT: Pupils are round and equally reacting to light. EOMI. No scleral icterus. No conjunctival pallor. Normocephalic, atraumatic. No pharyngeal erythema. No thyromegaly. CARDIOVASCULAR: S1 and S2 present. No murmurs, rubs, or gallops. PULMONARY: Chest is clear to auscultation, no wheezing or crackles. ABDOMEN: Soft, nontender, nondistended, normoactive bowel sounds. No palpable organomegaly. MUSCULOSKELETAL: No joint swelling or deformity. EXTREMITIES: No cyanosis, clubbing, or pedal edema. NEUROLOGICAL: Gross neurological examination did not reveal any focal deficits. SKIN: No rashes. Assessment and plan _Acute compression of lumbar spine especially L2-L3, and severe spinal stenosis causing acute symptoms, S/p epidural steroid injection. Continue pain management PT and OT following Physiatry consult _Incontinence of urine and stool: Most likely the effect of spinal stenosis and severity of her lumbar spine she is back having incontinence workup still with C. difficile diagnosis and Cryptosporidium came back negative. Continue symptoms control with Imodium, diarrhea resolved Continue Flagyl, will complete 1 week course of antibiotics for infectious diarrhea _Asthma/COPD: Continue albuterol/ipratropium continue to watch oxygen level will add steroid inhaler as well. _Hypertension: Continue verapamil 180 mg daily try to keep systolic blood pressure below 140. _ JJ: Has been much better and improved continue support for hypokalemia. _ Severe Neuropathy of the Lower Exts: Continue Lyrica _ Hypokalemia: Replacement Therapy will be done. _Hyperlipidemia: Remain on atorvastatin 20 mg a day. _ Diarrhea: Resolved _Chronic depression and bipolar disorders: Has been on Abilify, Wellbutrin XL, paroxetine And Topamax. _Hypothyroidism: Continue levothyroxine 25 mcg daily. _Chronic pain syndrome: Has been on hydrocodone along with Flexeril. Labs and medication were reviewed.. Continue same treatment. Continue with symptomatic treatment. Resume home medication. Monitor labs and vitals. DVT a nd GI prophylaxis. Further recommendations as per clinical course of the patient Dictation was produced using [employer] dictation software. please excuse any grammatical, word or spelling errors. Objective - Vital Signs Vital signs: Vital Signs Temp 97.8 F 03/06/24 07:33 Pulse 73 03/06/24 07:33 Resp 17 03/06/24 07:33 BP 150/89 03/06/24 07:33 Pulse Ox 94 L 03/06/24 08:18 FiO2 Intake & Output 03/05/24 03/06/24 03/06/24 18:59 06:59 18:59 Intake Total 700 Balance 700 Intake: Intake, IV Titration 700 Amount Sodium Chloride 0.9% 1, 600 000 ml @ 100 mls/hr IV . Q10H NESS Rx#:[id number] metroNIDAZOLE-NS PMX 500 100 mg In Saline 1 100ml.bag @ 100 mls/hr IVPB Q8HR NESS Rx#:[id number] Other: Voiding Method Bedside Commode Diaper # Voids 1 2 1 - Labs CBC & Chem 7: 03/06/24 10:11 03/06/24 10:11 Labs: Abnormal Lab Results - Last 24 Hours (Table) 03/05/24 03/05/24 03/06/24 Range/Units 17:13 19:59 02:00 POC Glucose (mg/dL) 150 H 193 H 115 H (70-110) mg/dL
[2024-03-06 17:13] LABS: Glucose,Whole Blood 139 mg/dL (70-110)
[2024-03-06 20:17] LABS: Glucose,Whole Blood 162 mg/dL (70-110)
[2024-03-07 07:00] LABS: Glucose,Whole Blood 117 mg/dL (70-110)
[2024-03-07 07:32] VITALS: BP 144/81; RESP 20; TEMP 98.1
--- NOTE | 2024-03-07 08:36 | P.PN ---
Subjective Progress Note Date: 03/07/24 HISTORY OF PRESENT ILLNESS: 73-year-old [address] 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 who presented to the emergency department at [facility] for complaining of lower extremity weakness along with weakness of the sphincters with incontinence to stool and urine become more progressive last 2 days with much worsening symptoms has been having worsening lower back pain with no history of trauma to the back recently. Original presentation sounds like diarrhea at the time of the patient really was having more incontinence. Ended up going for CT of the lumbar spine which shows multiple degenerative disc change with vacuum disc phenomenon presented at the L2-3, L4-5, and L5/S1. She had disc bulging with mild anterior thecal sac compression of the L4-L5 which most likely causing her symptoms. Recently CT of the abdomen pelvis did not show any acute problem or finding. Laboratory value WBC 12.2 hemoglobin 11.5 hematocrit 35.9 platelet count 274 with normal sodium at 140 potassium 3.2 chloride 109 bun 28 creatinine 1.08 with normal liver function test lactic acid phosphorus magnesium and respiratory infection were negative for influenza A, RSV and COVID-19. She was started on pain meds at the time along with muscle relaxer and admit patient for possible need to go for urg ent surgery will release pressure of the lumbar spine. MRI lumbar spine will schedule for [facility]. March 02, 2024: Fortunately overnight with patient being on steroid has improved si gnificantly she has better control of her sphincter and pain and discomfort has improved. MRI of the lumbar spine was done no evidence for cauda equina syndrome she had L2-3 mild spinal canal stenosis with a right paracentral disc protrusion with severe right and moderate left neural foraminal stenosis. The patient did not require to go for any urgent surgery at this point. Will continue current medical management, patient might benefit from having brace as well. Still waiting for her C. difficile which I believe patient is having formed stool the lab refused to run the specimen. March 03, 2024: Patient slightly with relapse and having more Incontinence today pain is controlled with medication. I agreed to move on to consult gastroenterology for her diarrhea her C. difficile was negative will continue symptomatic support along with Imodium and stool culture on Questran was started. Also consult pain management doctor on the very for possible epidural injection and the plan was to do a fluoroscopy guided L2-L3 epidural injection risk benefits was discussed with the patient and patient ended up having epidural shortly in the afternoon on March 03, 2024. Continue to titrate physical therapy and patient will be probably benefit from considering either inpatient rehab or SNF when she is ready to leave the hospital. March 04, 2024: She ended up seen pain management yesterday Dr. Hansen he ended up doing epidural injection the patient had some relief with her symptoms. Still having severe diarrhea and uncontrollable incontinence,Testing including C. difficile came back negative stool for culture ova and parasite still pending at this point. With the severity of her diarrhea keep having hypokalemia on replacement therapy still seen gastroenterology with her lower abdominal pain no nausea or vomiting and she was afebrile we will continue hydration, continue Imodium and Questran plus try Flagyl for diarrhea replace potassium continue current management no plan for endoscopy at this point with gastroenterology and further GI can be done as an outpatient specially GI services negative be available after today. Mobility still significantly decreased patient will be seen physiatry for possible inpatient rehab same time orthopedic decide to switch service to general medicine and for them to be on consult since and again do any surgery at this point continue on steroid which can be probably switch to oral and patient will need further help either for inpatient rehab or SNF with help. March 0704/2024: Patient apparently having less symptoms with her diarrhea and incontinence, pain is better controlled this point. Patient is not safe to walk without help she has been using a wheeled walker. Consult physiatry for possible inpatient patient does not meet criteria doing better. Also still work with physical therapy and with social media assistant to see if patient is a candidate for SNF. Otherwise patient hopefully can be discharged home with home care and physical therapy. Her diarrhea has improved with continue being on Flagyl for completion of 7 days which will be for 3 more days at this point. No GI bleed and urinary incontinence has slightly better. Also her lower back pain has improved since her epidural injection done. REVIEW OF SYSTEMS: CONSTITUTIONAL: Well-developed no acute respiratory distress. EYES: No icterus sclerae, no conjunctivitis. EARS, NOSE, MOUTH, THROAT, and FACE: No sore throat, lymphadenopathy, carotid bruits or deformity. RESPIRATORY: No SOB cough or wheezes. CARDIOVASCULAR: No CP, Palpitation, PND, Orthopnea, or angina. GASTROINTESTINAL: No Abd pain, Nausea or vomiting, no Diarrhea or constipation, No GI Bleed, no distention or masses. GENITOURINARY: Negative for Hematuria or UTI, no kidney stones. INTEGUMENT/BREAST: Negative for any muscular injury with mild osteoarthritis.. HEMATOLOGIC/LYMPHATIC: Negative for bleed or purpura. MUSCULOSKELTAL: Positive myalgia and arthralgia. NEURLOGICAL: Positive lower extremity weakness with simple weakness bilaterally. BEHAVIORAL/PSYCH: Severe depression. ENDOCRINE: Negative. PHYSICAL EXAMINATION: General Appearance: Alert, cooperative, no distress, appears stated age. Neck HEENT: Supple, no lymphadenopathy, no thyroid enlargement, no carotid bruits. Lungs: Decreased breath sound bilaterally found hyposmotic slight wheezes. Chest Wall: Decreased expansion with deep inspiration no tenderness and no deformity was found on exam, no costochondral pain or discomfort. Heart: Regular rate and rhythm, S1, S2 normal, no murmur, rub or gallop. Back: Symmetric, no curvature, ROM normal, no CVA tenderness. Abdomen: Soft, non-tender, bowel sounds active all four quadrants, no masses, no organomegaly. Extremities: Extremities normal, atraumatic, no cyanosis or edema. Pulses: 2+ and symmetric. Skin: Skin color, texture, tugor normal, no rashes or lesions. Neurologic: Alert oriented x3 cranial nerves II through XII intact, positive weakness of the lower extremity not able to do gait and balance exam. ASSESSMENT AND PLAN: _Acute compression of lumbar spine especially L2-L3, and severe spinal stenosis causing acute symptoms, symptoms slightly better with steroid epidural injection. _Incontinence of urine and stool: Symptoms are most likely from the severity of her spinal stenosis and the compression on lumbar second third patient remain on steroid currently still on medical management improving her incontinence since epidural injection. _Severe diarrhea: C. difficile was negative and symptoms finally are slightly better on Flagyl with treatment for infectious diarrhea. _Asthma/COPD: Continue albuterol/ipratropium continue to watch oxygen level will add steroid inhaler as well. _Hypertension: Resume verapamil 180 mg daily try to keep systolic blood pressure below 140. _ JJ: Has been much better and improved continue support for hypokalemia. _ Severe Neuropathy of the Lower Exts: will stay on Lyrica for now. _ Hypokalemia: Replacement Therapy will be done. _Hyperlipidemia: Remain on atorvastatin 20 mg a day. _Chronic depression and bipolar disorders: Has been on Abilify, Wellbutrin XL, paroxetine And Topamax. _Hypothyroidism: Continue levothyroxine 25 mcg daily. _Chronic pain syndrome: Has been on hydrocodone along with Flexeril. Prognosis: Fair. Discharge planning: Patient is not a candidate for inpatient rehab she can benefit from either going to SNF or home with home care. Objective - Vital Signs Vital signs: Vital Signs Temp 98.0 F 03/07/24 01:26 Pulse 71 03/07/24 01:26 Resp 17 03/07/24 01:26 BP 98/65 03/07/24 01:26 Pulse Ox 93 L 03/07/24 01:26 FiO2 Intake & Output 03/06/24 03/06/24 03/07/24 06:59 18:59 06:59 Other: Voiding Method Bedside Commode Bedside Commode Toilet Diaper Diaper Diaper # Voids 2 1 1 - Labs CBC & Chem 7: 03/06/24 10:11 03/06/24 10:11 Labs: Abnormal Lab Results - Last 24 Hours (Table) 03/06/24 03/06/24 03/06/24 Range/Units 10:11 10:11 17:12 WBC 13.9 H (3.8-10.6) k/uL MCHC 30.7 L (31.0-37.0) g/dL Neutrophils # 11.4 H (1.3-7.7) k/uL BUN 25 H (7-17) mg/dL Glucose 121 H (74-99) mg/dL POC Glucose (mg/dL) 139 H (70-110) mg/dL AST 44 H (14-36) U/L ALT 45 H (4-34) U/L Total Protein 5.5 L (6.3-8.2) g/dL Albumin 3.2 L (3.5-5.0) g/dL 03/06/24 Range/Units 20:15 WBC (3.8-10.6) k/uL MCHC (31.0-37.0) g/dL Neutrophils # (1.3-7.7) k/uL BUN (7-17) mg/dL Glucose (74-99) mg/dL POC Glucose (mg/dL) 162 H (70-110) mg/dL AST (14-36) U/L ALT (4-34) U/L Total Protein (6.3-8.2) g/dL Albumin (3.5-5.0) g/dL Microbiology - Last 24 Hours (Table) 03/03/24 15:20 Stool Culture - Preliminary Stool
[2024-03-07 11:56] LABS: Glucose,Whole Blood 194 mg/dL (70-110)
[2024-03-07 12:06] VITALS: PULSE 82
--- NOTE | 2024-03-07 20:17 | P.DS ---
Providers Date of admission: 03/02/24 09:10 Attending physician: Todd Cummins Consults: 02/29/24 22:07 Consult Physician Routine Consulting Provider: Kassie Holloway Consult Reason/Comments: medical managment Do you want consulting provider notified?: Already Contacted 03/02/24 14:56 Consult Physician Routine Consulting Provider: Facundo Rojas Consult Reason/Comments: Difficulty ambulating with perceived proximal lower extremity weakness bila Do you want consulting provider notified?: Yes 03/03/24 07:45 Consult Physician Routine Consulting Provider: Zayda Cramer Consult Reason/Comments: Diarrhea and Inconinence Do you want consulting provider notified?: Yes, Notify in am 03/04/24 07:48 Consult Physician Routine Consulting Provider: Armani Brown Consult Reason/Comments: In Pt Rehab for sever debility for L2-L3 compression Do you want consulting provider notified?: Yes, Notify in am Primary care physician: Kassie Holloway Hospital Course: HISTORY OF PRESENT ILLNESS: 73-year-old [address] 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 who presented to the emergency department at [facility] for complaining of lower extremity weakness along with weakness of the sphincters with incontinence to stool and urine become more progressive last 2 days with much worsening symptoms has been having worsening lower back pain with no history of trauma to the back recently. Original presentation sounds like diarrhea at the time of the patient really was having more incontinence. Ended up going for CT of the lumbar spine which shows multiple degenerative disc change with vacuum disc phenomenon presented at the L2-3, L4-5, and L5/S1. She had disc bulging with mild anterior thecal sac compression of the L4-L5 which most likely causing her symptoms. Recently CT of the abdomen pelvis did not show any acute problem or finding. Laboratory value WBC 12.2 hemoglobin 11.5 hematocrit 35.9 platelet count 274 with normal sodium at 140 potassium 3.2 chloride 109 bun 28 creatinine 1.08 with normal liver function test lactic acid phosphorus magnesium and respiratory infection were negative for influenza A, RSV and COVID-19. She was started on pain meds at the time along with muscle relaxer and admit patient for possible need to go for urgent surgery will release pressure of the lumbar spine. MRI lumbar spine will schedule for LEILA. March 02, 2024: Fortunately overnight with patient being on steroid has improved significantly she has better control of her sphincter and pain and discomfort has improved. MRI of the lumbar spine was done no evidence for cauda equina syndrome she had L2-3 mild spinal canal stenosis with a right paracentral disc protrusion with severe right and moderate left neural foraminal stenosis. The patient did not require to go for any urgent surgery at this point. Will continue current medical management, patient might benefit from having brace as well. Still waiting for her C. difficile which I believe patient is having formed stool the lab refused to run the specimen. March 03, 2024: Patient slightly with relapse and having more Incontinence today pain is controlled with medication. I agreed to move on to consult gastroenterology for her diarrhea her C. difficile was negative will continue symptomatic support along with Imodium and stool culture on Questran was albert ross Also consult pain management doctor on the very for possible epidural injection and the plan was to do a fluoroscopy guided L2-L3 epidural injection risk benefits was discussed with the patient and patient ended up having epidural shortly in the afternoon on March 03, 2024. Continue to titrate physical therapy and patient will be probably benefit from considering either inpatient rehab or SNF when she is ready to leave the hospital. March 04, 2024: She ended up seen pain management yesterday Dr. Hansen he ended up doing epidural injection the patient had some relief with her symptoms. Still having severe diarrhea and uncontrollable incontinence,Testing including C. difficile came back negative stool for culture ova and parasite still pending at this point. With the severity of her diarrhea keep having hypokalemia on replacement therapy still seen gastroenterology with her lower abdominal pain no nausea or vomiting and she was afebrile we will continue hydration, continue Imodium and Questran plus try Flagyl for diarrhea replace potassium continue current management no plan for endoscopy at this point with gastroenterology and further GI can be done as an outpatient specially GI services negative be available after today. Mobility still significantly decreased patient will be seen physiatry for possible inpatient rehab same time orthopedic decide to switch service to general medicine and for them to be on consult since and again do any surgery at this point continue on steroid which can be probably switch to oral and patient will need further help either for inpatient rehab or SNF with help. March 0704/2024: Patient apparently having less symptoms with her diarrhea and incontinence, pain is better controlled this point. Patient is not safe to walk without help she has been using a wheeled walker. Consult physiatry for possible inpatient patient does not meet criteria doing better. Also still work with physical therapy and with social service director to see if patient is a candidate for SNF. Otherwise patient hopefully can be discharged home with home care and physical therapy. Her diarrhea has improved with continue being on Flagyl for completion of 7 days which will be for 3 more days at this point. No GI bleed and urinary incontinence has slightly better. Also her lower back pain has improved since her epidural injection done. REVIEW OF SYSTEMS: CONSTITUTIONAL: Well-developed no acute respiratory distress. EYES: No icterus sclerae, no conjunctivitis. EARS, NOSE, MOUTH, THROAT, and FACE: No sore throat, lymphadenopathy, carotid bruits or deformity. RESPIRATORY: No SOB cough or wheezes. CARDIOVASCULAR: No CP, Palpitation, PND, Orthopnea, or angina. GASTROINTESTINAL: No Abd pain, Nausea or vomiting, no Diarrhea or constipation, No GI Bleed, no distention or masses. GENITOURINARY: Negative for Hematuria or UTI, no kidney stones. INTEGUMENT/BREAST: Negative for any muscular injury with mild osteoarthritis.. HEMATOLOGIC/LYMPHATIC: Negative for bleed or purpura. MUSCULOSKELTAL: Positive myalgia and arthralgia. NEURLOGICAL: Positive lower extremity weakness with simple weakness bilaterally. BEHAVIORAL/PSYCH: Severe depression. ENDOCRINE: Negative. PHYSICAL EXAMINATION: General Appearance: Alert, cooperative, no distress, appears stated age. Neck HEENT: Supple, no lymphadenopathy, no thyroid enlargement, no carotid bruits. Lungs: Decreased breath sound bilaterally found hyposmotic slight wheezes. Chest Wall: Decreased expansion with deep inspiration no tenderness and no deformity was found on exam, no costochondral pain or discomfort. Heart: Regular rate and rhythm, S1, S2 normal, no murmur, rub or gallop. Back: Symmetric, no curvature, ROM normal, no CVA tenderness. Abdomen: Soft, non-tender, bowel sounds active all four quadrants, no masses, no organomegaly. Extremities: Extremities normal, atraumatic, no cyanosis or edema. Pulses: 2+ and symmetric. Skin: Skin color, texture, tugor normal, no rashes or lesions. Neurologic: Alert oriented x3 cranial nerves II through XII intact, positive weakness of the lower extremity not able to do gait and balance exam. ASSESSMENT AND PLAN: _Acute compression of lumbar spine especially L2-L3, and severe spinal stenosis causing acute symptoms, symptoms slightly better with steroid epidural injection. _Incontinence of urine and stool: Symptoms are most likely from the severity of her spinal stenosis and the compression on lumbar second third patient remain on steroid currently still on medical management improving her incontinence since epidural injection. _Severe diarrhea: C. difficile was negative and symptoms finally are slightly better on Flagyl with treatment for infectious diarrhea. _Asthma/COPD: Continue albuterol/ipratropium continue to watch oxygen level will add steroid inhaler as well. _Hypertension: Resume verapamil 180 mg daily try to keep systolic blood pressure below 140. _ JJ: Has been much better and improved continue support for hypokalemia. _ Severe Neuropathy of the Lower Exts: will stay on Lyrica for now. _ Hypokalemia: Replacement Therapy will be done. _Hyperlipidemia: Remain on atorvastatin 20 mg a day. _Chronic depression and bipolar disorders: Has been on Abilify, Wellbutrin XL, paroxetine And Topamax. _Hypothyroidism: Continue levothyroxine 25 mcg daily. _Chronic pain syndrome: Has been on hydrocodone along with Flexeril. Prognosis: Fair. Discharge planning: Patient is not a candidate for inpatient rehab she can benefit from either going to SNF or home with home care. Hospital course: Patient was admitted on 02/29/2024 for severe acute weakness suspicion for acute compression of lumbar second third was seen Dr. Duvall orthopedic started steroid IV and patient ended up going for urgent MRI of the lumbar spine finding came back with severe spinal stenosis and mild compression of the L2-L3 with further spinal stenosis as well. Consult pain management Dr. Leon anesthesia patient ended up going for epidural injection which had helped some but continue having severe incontinence to stool and urine with severe diarrhea. Patient was seen gastroenterology C. difficile came back negative and stool culture did not show any major abnormality. Patient was started on Flagyl and Cipro and continue to be treated for infectious diarrhea with slight improvement finally. Her mobility continue to be significantly down started PT OT patient is not safe to walk without wheel walker. Consult physiatry for possible inpatient rehab patient apparently is doing better physically does not require inpatient rehab. Continue physical therapy and patient will end up either going to SNF or going home with home physical therapy. Patient stable to be discharged home today hopefully on 03/07/2024. Time spent on patient discharge was 37 minutes. Patient Condition at Discharge: Stable Plan - Discharge Summary Discharge Rx Participant: No New Discharge Prescriptions: New Loperamide [Imodium] 4 mg PO QID #60 cap predniSONE 10 mg PO DAILY #20 tab metroNIDAZOLE [Flagyl] 250 mg PO TID #15 tab Continue ALPRAZolam [Xanax] 0.5 mg PO TID SUMAtriptan succinate [Imitrex] 50 mg PO DAILY PRN PRN Reason: Migraine Headache Levothyroxine Sodium [Synthroid] 25 mcg PO DAILY Albuterol Inhaler [Ventolin Hfa Inhaler] 1 - 2 puff INHALATION RT-Q6H PRN PRN Reason: Shortness Of Breath ARIPiprazole [Abilify] 5 mg PO DAILY Ascorbic Acid [Vitamin C] 500 mg PO DAILY FLUoxetine HCL [PROzac] 20 mg PO DAILY hydroCHLOROthiazide [Hydrodiuril] 25 mg PO DAILY Pregabalin [Lyrica] 75 mg PO TID Tretinoin/Emollient Base [Tretinoin 0.05% Emollient Crm] 1 applic TOPICAL DAILY Verapamil HCl [Verapamil ER] 180 mg PO DAILY Cyclobenzaprine [Flexeril] 5 mg PO TID PRN PRN Reason: Muscle Spasm Naproxen [EC-Naproxen] 375 mg PO BID PRN PRN Reason: Pain oxyCODONE-APAP 5-325MG [Percocet 5-325 mg] 1 tab PO TID Rosuvastatin [Crestor] 10 mg PO DAILY Topiramate 25 mg PO DAILY buPROPion XL [Wellbutrin XL] 300 mg PO DAILY Discontinued Atomoxetine HCl [Strattera] 25 mg PO DAILY Discharge Medication List ALPRAZolam [Xanax] 0.5 mg PO TID 11/11/19 [History] Levothyroxine Sodium [Synthroid] 25 mcg PO DAILY 02/24/22 [History] SUMAtriptan succinate [Imitrex] 50 mg PO DAILY PRN 02/24/22 [History] Verapamil HCl [Verapamil ER] 180 mg PO DAILY 02/24/22 [History] ARIPiprazole [Abilify] 5 mg PO DAILY 02/29/24 [History] Albuterol Inhaler [Ventolin Hfa Inhaler] 1 - 2 puff INHALATION RT-Q6H PRN 02/29/24 [History] Ascorbic Acid [Vitamin C] 500 mg PO DAILY 02/29/24 [History] Cyclobenzaprine [Flexeril] 5 mg PO TID PRN 02/29/24 [History] FLUoxetine HCL [PROzac] 20 mg PO DAILY 02/29/24 [History] Naproxen [EC-Naproxen] 375 mg PO BID PRN 02/29/24 [History] Pregabalin [Lyrica] 75 mg PO TID 02/29/24 [History] Rosuvastatin [Crestor] 10 mg PO DAILY 02/29/24 [History] Topiramate 25 mg PO DAILY 02/29/24 [History] Tretinoin/Emollient Base [Tretinoin 0.05% Emollient Crm] 1 applic TOPICAL DAILY 02/29/24 [History] buPROPion XL [Wellbutrin XL] 300 mg PO DAILY 02/29/24 [History] hydroCHLOROthiazide [Hydrodiuril] 25 mg PO DAILY 02/29/24 [History] oxyCODONE-APAP 5-325MG [Percocet 5-325 mg] 1 tab PO TID 02/29/24 [History] Loperamide [Imodium] 4 mg PO QID #60 cap 03/07/24 [Rx] metroNIDAZOLE [Flagyl] 250 mg PO TID #15 tab 03/07/24 [Rx] predniSONE 10 mg PO DAILY #20 tab 03/07/24 [Rx] Follow up Appointment(s)/Referral(s): Kassie Holloway MD [Primary Care Provider] - 1-2 days (The office was not available to answer calls please call and make follow up appointment.) Aleksandar Dos Santos PAC [PHYSICIAN GLASS INSTALLER] - 03/21/24 2:00 pm (Patient may follow-up with Aleksandar Dos Santos PA-C or Dr. Chong Duvall at [facility] in 2-3 weeks following discharge. ) [facility] [NON-STAFF] - 1 Week (The office will call you with an appointment time and date follow up if they do not call .) Activity/Diet/Wound Care/Special Instructions: 1. Patient is encouraged to utilize a walker to aid in ambulation as needed [place] [facility] ([facility]) [address] [place] [address] Family Housing: [facility] [address] [place] [address] [facility] [address] [place] [address] [facility] [address] [place] [address] Senior Housing: [facility] [address] [place] [address] [facility] [address] [place] [address] Section 8 Housing Options: [facility] [address] [place] [address] [facility] [address] [place] [address] [facility] [address] [place] [address] [facility] [address] [place] [address] [facility] [address] [place] [address] [facility] [address] [place] [address] [facility] [address] [place] [address] [facility] [address] [place] [address] [place] [facility] [address] [place] [address] [facility] [address] [place] [address] [facility] [address] [place] [address] Veterans options for housing: [facility]: to locate and make an appointment with the [facility] ([facility] [place] [facility]) provider in your area. [facility] might be able to help you keep your current home; find a new, more suitable housing solution for you and your family; rapidly de-house you and your family if you are experiencing homelessness. [employer] Veterans Affairs: https://www.[place].gov[place]homeless/housing.asp [facility] ([facility] Supportive Housing) Vouchers: https://[email or web address].[email or web address]/rental/waovwrn-askpyy-ebfzcld/qaq-edbk-kgehlfwp-a ilduszxoicmjd-tbebzataxk-bhbwssc-vouchers [facility]. Department of [facility] and Urban Development Agency ([facility]) is a federal government agency that partners with local governments to help low-income in dividuals and families with public or private housing. Rent is based on income. Section 8 is a section of the Housing Act that provides vouchers to low-income individuals and families for rent in private housing. These vouchers cover a portion of the rent and the individual is responsible for the remainder. Discharge/Stand Alone Forms: [facility] Instructions, Who Do I Call?, Community Resources Discharge Disposition: HOME WITH HOME HEALTH SERVICES
== END 2024-03-07 14:17 | disposition home health service (06) | DRG 552 ==
LOC: EC 12:10 → 6NMEDSUR 17:39 → 5NMEDONC 21:26 → OBSVTOIN 03-02 09:10
PROVIDERS: ADMIT Internal Medicine Geriatric Medicine; ATTEND Internal Medicine Geriatric Medicine
PROC: 3E0R3BZ Introduction of Anesthetic Agent into Spinal Canal, Percutaneous Approach (ICD-10-PCS; 2024-03-03)
PROC: 3E0R33Z Introduction of Anti-inflammatory into Spinal Canal, Percutaneous Approach (ICD-10-PCS; principal; 2024-03-03 12:30)
DX: M43.17 Spondylolisthesis, lumbosacral region (principal); N17.9 Acute kidney failure, unspecified; M51.16 Intervertebral disc disorders with radiculopathy, lumbar region; M79.7 Fibromyalgia; M47.26 Other spondylosis with radiculopathy, lumbar region; M48.061 Spinal stenosis, lumbar region without neurogenic claudication; E78.5 Hyperlipidemia, unspecified; E11.22 Type 2 diabetes mellitus with diabetic chronic kidney disease; E11.42 Type 2 diabetes mellitus with diabetic polyneuropathy; J44.89 Other specified chronic obstructive pulmonary disease; M51.37 Other intervertebral disc degeneration, lumbosacral region; R19.7 Diarrhea, unspecified; E87.5 Hyperkalemia; N18.9 Chronic kidney disease, unspecified; F31.9 Bipolar disorder, unspecified; E87.6 Hypokalemia; M81.0 Age-related osteoporosis without current pathological fracture; K59.03 Drug induced constipation; R32 Unspecified urinary incontinence; R15.9 Full incontinence of feces; I12.9 Hypertensive chronic kidney disease with stage 1 through stage 4 chronic kidney disease, or unspecified chronic kidney disease; G89.4 Chronic pain syndrome; E03.9 Hypothyroidism, unspecified; Z79.890 Hormone replacement therapy; Z79.899 Other long term (current) drug therapy; T40.2X5A Adverse effect of other opioids, initial encounter; Z82.49 Family history of ischemic heart disease and other diseases of the circulatory system; Z87.442 Personal history of urinary calculi; Z87.891 Personal history of nicotine dependence; Z96.641 Presence of right artificial hip joint; X58.XXXA Exposure to other specified factors, initial encounter
CPT/HCPCS: 36415; 62323; 72132; 72148; 74177; 80053; 81001; 82550; 82607; 82746; 83036; 83605; 83735; 83921; 84100; 84132; 84207; 84443; 85025; 85027; 85610; 85730; 87045; 87046; 87324; 87328; 87329; 87636; 93005; 94640; 94760; 96360; 96361; 99285

== ENCOUNTER 2024-08-21 13:44 | Inpatient (IN) | payer MEDICARE, OTHER ==
--- NOTE | 2024-08-21 14:21 | ED ---
Back Pain HPI - General Source: patient Mode of arrival: wheelchair Limitations: physical limitation - History of Present Illness MD Complaint: back pain, fall Onset/Timin -: days(s) Place: home Severity scale (1-10): 8 Context: fall Associated Symptoms: difficulty walking <Chon Bryan - Last Filed: 08/21/24 14:18> - General Source: patient, RN notes reviewed, old records reviewed <Ang Stout - Last Filed: 08/21/24 19:56> - General Stated Complaint: Fall-Unable to walk Time Seen by Provider: 08/21/24 14:02 - History of Present Illness Initial Comments: Quick note: This is a 74-year-old female presenting with sudden collapse and subsequent inability to walk yesterday while at home. Patient endorses sudden onset lower back pain (8 out of 10) causing her to fall backwards, striking the back of her head against a wall at home. Patient denies loss of consciousness, significant head pain or neck pain following fall. Patient endorses history of L5 fracture right total hip replacement. Patient endorses history of similar incident about 4 months ago. Endorses receiving corticosteroid injections into back but did not undergo surgery or have that follow-up. Patient states she sees Dr. Kelley for pain management. Patient denies radiating pain or paresthesia , saddle paresthesia, urinary retention/incontinence. Patient denies fever, chills, body aches, chest pain, dyspnea, abdominal pain, N/V/D, urinary symptoms (Chon Bryan) Patient presents emergency department over concern for back pain and weakness. Patient fell yesterday while at home. Ambulates with a walker at baseline. Has a history of chronic lumbar spine injuries and issues. States she was unable to stand back up which has happened previously. Crawled around and spent in night on the floor. Was able to get up and sprinkler driver's up to the ER for evaluation tomallika horn. States she feels unsafe at home because she feels more weak in the lower extremities however is still able to move them. Denies any saddle paresthesias. Denies any urinary incontinence or retention. Denies any bowel incontinence or retention. Endorses lower back pain. No other injuries from the fall. Does believe she hit her head and is relatively certain she did not lose consciousness but no other acute complaints at this time. Presents for further evaluation. Originally seen as a quick note. I evaluated the patient when she was placed in a hallway bed. (Ang Stout) - Related Data Home Medications Medication Instructions Recorded Confirmed ALPRAZolam [Xanax] 0.5 mg PO TID PRN 11/11/19 08/21/24 SUMAtriptan succinate [Imitrex] 50 mg PO BID PRN 02/24/22 08/21/24 Verapamil HCl [Verapamil ER] 180 mg PO DAILY 02/24/22 08/21/24 ARIPiprazole [Abilify] 5 mg PO DAILY 02/29/24 08/21/24 Cyclobenzaprine [Flexeril] 5 mg PO TID PRN 02/29/24 08/21/24 Pregabalin [Lyrica] 75 mg PO DAILY 02/29/24 08/21/24 Tretinoin/Emollient Base 1 applic TOPICAL DAILY 02/29/24 08/21/24 [Tretinoin 0.05% Emollient Crm] hydroCHLOROthiazide [Hydrodiuril] 25 mg PO DAILY 02/29/24 08/21/24 oxyCODONE-APAP 5-325MG [Percocet 1 tab PO TID 02/29/24 08/21/24 5-325 mg] ALPRAZolam [Xanax XR] 2 mg PO DAILY 08/21/24 08/21/24 Atomoxetine HCl [Strattera] 80 mg PO DAILY 08/21/24 08/21/24 Butalb/APAP/Caff 50-325-40Mg 1 tab PO Q6H PRN 08/21/24 08/21/24 [Fioricet 50-325-40] PARoxetine [Paxil] 10 mg PO DAILY 08/21/24 08/21/24 Allergies Allergy/AdvReac Type Severity Reaction Status Date / Time vancomycin Allergy Rash/Hives Verified 08/21/24 16:29 Review of Systems ROS Other: All systems not noted in ROS Statement are negative. <Chon Bryan - Last Filed: 08/21/24 14:18> ROS Other: All systems not noted in ROS Statement are negative. <Ang Stout - Last Filed: 08/21/24 19:56> ROS Statement: Those systems with pertinent positive or pertinent negative responses have been documented in the HPI. Review of Systems: CONST: Denies fever EYES: Denies blurry vision ENT: Denies nasal congestion C/V: Denies Chest pain RESP: Denies shortness of breath GI: Denies abdominal pain : Denies dysuria SKIN: Denies rash. MSK: Endorses acute on chronic back pain NEURO: Denies headache (Ang Stout) Past Medical History Past Medical History: Asthma, COPD, Fibromyalgia, Hyperlipidemia, Hypertension, Osteoarthritis (OA), Pneumonia, Renal Disease Additional Past Medical History / Comment(s): Pt recently admitted to [facility] on 02/26/22 with facial cellulitis and also had an allergic reaction to vancomycin. Other Hx: Bronchitis, migraines, chronic low back pain/L5 fracture, osteoporosis, nasal fractures/deviated septum, kidney stones, UTI. History of Any Multi-Drug Resistant Organisms: None Reported MDRO Source:: face Past Surgical History: Adenoidectomy, Breast Surgery, Orthopedic Surgery, Tonsillectomy Additional Past Surgical History / Comment(s): R total hip arthroplasty d/t avascular necrosis, L breast benign bx Past Anesthesia/Blood Transfusion Reactions: No Reported Reaction Smoking Status: Vaper - Past Family History Father Family Medical History: CVA/TIA, Diabetes Mellitus Additional Family Medical History / Comment(s): Father had a massive [place] in his late 60s or early 70s Mother Family Medical History: Myocardial Infarction ([place]) Additional Family Medical History / Comment(s): In her 70's had a heart attack <Chon Bryan - Last Filed: 08/21/24 14:18> General Exam <Chon Bryan - Last Filed: 08/21/24 14:18> <Ang Stout - Last Filed: 08/21/24 19:56> - General Exam Comments Initial Comments: Visual Physical Exam Vital signs reviewed General: Well-appearing, nontoxic, no acute distress. Head: Normocephalic, atraumatic Eyes: PERRLA, EOMI ENT: Airway patent Chest: Nonlabored breathing Skin: No visual rash, normal skin tone Neuro: Alert and oriented 3 Musculoskeletal: No gross abnormalities (Chon Bryan) General: Appears in no acute distress. HEAD: Normal with no signs of head trauma. Negative Vasquez sign, negative raccoon eyes. EYES: PERRLA, EOMI, conjunctiva normal, no discharge. Pupils are 3 mm and equal bilaterally. ENT: Hearing grossly intact, normal oropharynx. RESPIRATORY: Clear breath sounds bilaterally. No wheezes, rales, or rhonchi. C/V: Regular rate and rhythm. S1 and S2 auscultated, no edema, peripheral pulses 2+ and intact throughout ABD: Abd is soft, nontender, nondistended EXT: Normal range of motion, no obvious deformity. Lower lumbar spine tenderne ss to palpation with no obvious step-offs or deformities. No cervical or thoracic spine tenderness to palpation. Pelvis is stable. SKIN: No rashes or lesions observed on exposed skin. NEURO: Alert and oriented x 4. Cranial nerves II-XII intact. No focal sensory or strength deficits. GCS of 15. (Ang Stout) Course Vital Signs 08/21/24 08/21/24 08/21/24 15:00 17:12 17:21 Temperature 98.4 F Pulse Rate 90 84 86 Respiratory 18 Rate Blood Pressure 123/70 O2 Sat by Pulse 96 Oximetry 08/21/24 17:25 Temperature Pulse Rate 75 Respiratory 20 Rate Blood Pressure 132/85 O2 Sat by Pulse 100 Oximetry Medical Decision Making <Chon Bryan - Last Filed: 08/21/24 14:18> - Lab Data Result diagrams: 08/21/24 16:10 08/21/24 16:10 - EKG Data -: EKG Interpreted by Me <Ang Stout - Last Filed: 08/21/24 19:56> - Medical Decision Making I completed the quick note portion of this chart signed BEV Monahan (Chon Bryan) Was pt. sent in by a medical professional or institution ([facility], GENERAL INTERNAL MEDICINE PHYSICIAN, urgent care, hospital, or halfway...) When possible be specific @ -No Did you speak to anyone other than the patient for history (EMS, parent, family, police, friend...)? What history was obtained from this source @ -No Did you review nursing and triage notes (agree or disagree)? Why? @ -I reviewed and agree with nursing and triage notes Were old charts reviewed (outside hosp., previous admission, EMS record, old EKG, old radiological studies, urgent care reports/EKG's, halfway records)? Report findings @ -No old charts were reviewed Differential Diagnosis (chest pain, altered mental status, abdominal pain women, abdominal pain men, vaginal bleeding, weakness, fever, dyspnea, syncope, headache, dizziness, GI bleed, back pain, seizure, CVA, palpatations, mental health, musculoskeletal)? @ -Differential Back Pain: Strain, zoster, cauda equina syndrome, epidural abscess, vertebral osteomyelitis, discitis, fracture, subluxation, disc herniation, DJD, spinal stenosis, dissection, AAA, pancreatitis, peptic ulcer disease, pyelonephritis, kidney stone, this is not meant to be an all-inclusive list. EKG interpreted by me (3pts min.). @ -As above X-rays interpreted by me (1pt min.). @ -Chest x-ray and pelvis x-ray negative for any obvious traumatic injury. CT interpreted by me (1pt min.). @ -CT brain, cervical spine negative for any obvious traumatic injury. CT lumbar spine shows chronic degenerative changes with no obvious acute traumatic injury. U/S interpreted by me (1pt. min.). @ -None done What testing was considered but not performed or refused? (CT, X-rays, U/S, labs)? Why? @ -None What meds were considered but not given or refused? Why? @ -None Did you discuss the management of the patient with other professionals (professionals i.e. , PA, GENERAL INTERNAL MEDICINE PHYSICIAN, lab, RT, psych nurse, social worker delinquency prevention, electron beam welding machine operator, teacher, chief program officer, gearcase assembler)? Give summary @ -Discussed with the admitting team, Madelaine of [facility] who accepted the admission. Was smoking cessation discussed for >3mins.? @ -No Was critical care preformed (if so, how long)? @ -No Were there social determinants of health that impacted care today? How? (Homelessness, low income, unemployed, alcoholism, drug addiction, transportation, low edu. Level, literacy, decrease access to med. care, residential, rehab)? @ -No Was there de-escalation of care discussed even if they declined (Discuss DNR or withdrawal of care, Hospice)? DNR status @ -No What co-morbidities impacted this encounter? (DM, HTN, Smoking, COPD, CAD, Cancer, CVA, ARF, Chemo, Hep., AIDS, mental health diagnosis, sleep apnea, morbid obesity)? @ -Chronic back pain Was patient admitted / discharged? Hospital course, mention meds given and route, prescriptions, significant lab abnormalities, going to OR and other pertinent info. @ -Based on patient's presentation and physical exam, presents emergency department for weakness and back pain. We will obtain imaging as well as laboratory studies. Patient in agreement this plan. She will be given analgesia medications, IV fluids. Vitals within acceptable limits. No neurological complaints. No concern for cauda equina syndrome at this time. EKG shows no signs of acute ischemia. Imaging returned negative for any obvious acute traumatic injury. Possible nose fracture noted by radiology however this is not tender on palpation of the patient's face. Laboratory studies remarkable for mild lactic acidosis of 2.3 which was eliminated. Creatinine kinase is slightly elevated 199. Patient does have a UTI. I discussed results with patient. She is a fall risk if we discharged home at this time. We will admit for IV hydration as well as IV antibiotics. Patient was in agreement this plan. Urine culture sent. I spoke with the admitting team, PER Mcgill of [facility] who accepted the admission. Undiagnosed new problem with uncertain prognosis? @ -No Drug Therapy requiring intensive monitoring for toxicity (Heparin, Nitro, Insulin, Cardizem)? @ -No Were any procedures done? @ -No Diagnosis/symptom? @ -Fall, Weakness, UTI Acute, or Chronic, or Acute on Chronic? @ -Acute Uncomplicated (without systemic symptoms) or Complicated (systemic symptoms)? @ -Complicated Side effects of treatment? @ -No Exacerbation, Progression, or Severe Exacerbation? @ -No Poses a threat to life or bodily function? How? (Chest pain, [place], [place], pneumonia, PE, COPD, DKA, ARF, appy, cholecystitis, CVA, Diverticulitis, Homicidal, Suicid al, threat to staff... and all critical care pts) @ -Potentially, yes (Ang Stout) - Lab Data Lab Results 08/21/24 08/21/24 08/21/24 Range/Units 16:10 16:10 16:10 WBC 11.1 H (3.8-10.6) k/uL RBC 4.51 (3.80-5.40) m/uL Hgb 13.3 (11.4-16.0) gm/dL Hct 40.5 (34.0-46.0) % MCV 89.8 (80.0-100.0) fL MCH 29.4 (25.0-35.0) pg MCHC 32.8 (31.0-37.0) g/dL RDW 14.4 (11.5-15.5) % Plt Count 344 (150-450) k/uL MPV 8.4 Neutrophils % 64 % Lymphocytes % 24 % Monocytes % 6 % Eosinophils % 3 % Basophils % 1 % Neutrophils # 7.1 (1.3-7.7) k/uL Lymphocytes # 2.6 (1.0-4.8) k/uL Monocytes # 0.6 (0-1.0) k/uL Eosinophils # 0.4 (0-0.7) k/uL Basophils # 0.1 (0-0.2) k/uL PT 9.4 L (10.0-12.5) sec INR 0.8 (<1.2) APTT 23.6 (22.0-30.0) sec Sodium 141 (137-145) mmol/L Potassium 3.7 (3.5-5.1) mmol/L Chloride 102 (98-107) mmol/L Carbon Dioxide 33 H (22-30) mmol/L Anion Gap 6 mmol/L BUN 14 (7-17) mg/dL Creatinine 0.82 (0.52-1.04) mg/dL Est GFR (CKD-EPI)AfAm 81 (>60 ml/min/1.73 sqM) Est GFR (CKD-EPI)NonAf 70 (>60 ml/min/1.73 sqM) Glucose 103 H (74-99) mg/dL Lactic Ac Sepsis Rflx Plasma Lactic Acid Anatoliy (0.7-2.0) mmol/L Calcium 9.4 (8.4-10.2) mg/dL Magnesium 2.1 (1.6-2.3) mg/dL Total Bilirubin 0.4 (0.2-1.3) mg/dL AST 33 (14-36) U/L ALT 22 (4-34) U/L Alkaline Phosphatase 90 (38-126) U/L Creatine Kinase 199 H (30-135) U/L Total Protein 6.9 (6.3-8.2) g/dL Albumin 4.3 (3.5-5.0) g/dL Urine Color Urine Appearance (Clear) Urine pH (5.0-8.0) Ur Specific [place] (1.001-1.035) Urine Protein (Negative) Urine Glucose (UA) (Negative) Urine Ketones (Negative) Urine Blood (Negative) Urine Nitrite (Negative) Urine Bilirubin (Negative) Urine Urobilinogen (<2.0) mg/dL Ur Leukocyte Esterase (Negative) Urine RBC (0-5) /hpf Urine WBC (0-5) /hpf Ur Squamous Epith Cells (0-4) /hpf Urine Bacteria (None) /hpf Urine Mucus (None) /hpf Influenza Type A (PCR) (Not Detectd) Influenza Type B (PCR) (Not Detectd) RSV (PCR) (Not Detectd) SARS-CoV-2 (PCR) (Not Detectd) 08/21/24 08/21/24 08/21/24 Range/Units 16:10 16:10 16:38 WBC (3.8-10.6) k/uL RBC (3.80-5.40) m/uL Hgb (11.4-16.0) gm/dL Hct (34.0-46.0) % MCV (80.0-100.0) fL MCH (25.0-35.0) pg MCHC (31.0-37.0) g/dL RDW (11.5-15.5) % Plt Count (150-450) k/uL MPV Neutrophils % % Lymphocytes % % Monocytes % % Eosinophils % % Basophils % % Neutrophils # (1.3-7.7) k/uL Lymphocytes # (1.0-4.8) k/uL Monocytes # (0-1.0) k/uL Eosinophils # (0-0.7) k/uL Basophils # (0-0.2) k/uL PT (10.0-12.5) sec INR (<1.2) APTT (22.0-30.0) sec Sodium (137-145) mmol/L Potassium (3.5-5.1) mmol/L Chloride (98-107) mmol/L Carbon Dioxide (22-30) mmol/L Anion Gap mmol/L BUN (7-17) mg/dL Creatinine (0.52-1.04) mg/dL Est GFR (CKD-EPI)AfAm (>60 ml/min/1.73 sqM) Est GFR (CKD-EPI)NonAf (>60 ml/min/1.73 sqM) Glucose (74-99) mg/dL Lactic Ac Sepsis Rflx Plasma Lactic Acid Anatoliy 2.3 H* (0.7-2.0) mmol/L Calcium (8.4-10.2) mg/dL Magnesium (1.6-2.3) mg/dL Total Bilirubin (0.2-1.3) mg/dL AST (14-36) U/L ALT (4-34) U/L Alkaline Phosphatase (38-126) U/L Creatine Kinase (30-135) U/L Total Protein (6.3-8.2) g/dL Albumin (3.5-5.0) g/dL Urine Color Colorless Urine Appearance Clear (Clear) Urine pH 6.0 (5.0-8.0) Ur Specific [place] 1.008 (1.001-1.035) Urine Protein Negative (Negative) Urine Glucose (UA) Negative (Negative) Urine Ketones Negative (Negative) Urine Blood Negative (Negative) Urine Nitrite Positive H (Negative) Urine Bilirubin Negative (Negative) Urine Urobilinogen <2.0 (<2.0) mg/dL Ur Leukocyte Esterase Small H (Negative) Urine RBC 1 (0-5) /hpf Urine WBC 12 H (0-5) /hpf Ur Squamous Epith Cells 1 (0-4) /hpf Urine Bacteria Occasional H (None) /hpf Urine Mucus Rare H (None) /hpf Influenza Type A (PCR) Not Detected (Not Detectd) Influenza Type B (PCR) Not Detected (Not Detectd) RSV (PCR) Not Detected (Not Detectd) SARS-CoV-2 (PCR) Not Detected (Not Detectd) 08/21/24 Range/Units 16:40 WBC (3.8-10.6) k/uL RBC (3.80-5.40) m/uL Hgb (11.4-16.0) gm/dL Hct (34.0-46.0) % MCV (80.0-100.0) fL MCH (25.0-35.0) pg MCHC (31.0-37.0) g/dL RDW (11.5-15.5) % Plt Count (150-450) k/uL MPV Neutrophils % % Lymphocytes % % Monocytes % % Eosinophils % % Basophils % % Neutrophils # (1.3-7.7) k/uL Lymphocytes # (1.0-4.8) k/uL Monocytes # (0-1.0) k/uL Eosinophils # (0-0.7) k/uL Basophils # (0-0.2) k/uL PT (10.0-12.5) sec INR (<1.2) APTT (22.0-30.0) sec Sodium (137-145) mmol/L Potassium (3.5-5.1) mmol/L Chloride (98-107) mmol/L Carbon Dioxide (22-30) mmol/L Anion Gap mmol/L BUN (7-17) mg/dL Creatinine (0.52-1.04) mg/dL Est GFR (CKD-EPI)AfAm (>60 ml/min/1.73 sqM) Est GFR (CKD-EPI)NonAf (>60 ml/min/1.73 sqM) Glucose (74-99) mg/dL Lactic Ac Sepsis Rflx Y Plasma Lactic Acid Anatoliy (0.7-2.0) mmol/L Calcium (8.4-10.2) mg/dL Magnesium (1.6-2.3) mg/dL Total Bilirubin (0.2-1.3) mg/dL AST (14-36) U/L ALT (4-34) U/L Alkaline Phosphatase (38-126) U/L Creatine Kinase (30-135) U/L Total Protein (6.3-8.2) g/dL Albumin (3.5-5.0) g/dL Urine Color Urine Appearance (Clear) Urine pH (5.0-8.0) Ur Specific [place] (1.001-1.035) Urine Protein (Negative) Urine Glucose (UA) (Negative) Urine Ketones (Negative) Urine Blood (Negative) Urine Nitrite (Negative) Urine Bilirubin (Negative) Urine Urobilinogen (<2.0) mg/dL Ur Leukocyte Esterase (Negative) Urine RBC (0-5) /hpf Urine WBC (0-5) /hpf Ur Squamous Epith Cells (0-4) /hpf Urine Bacteria (None) /hpf Urine Mucus (None) /hpf Influenza Type A (PCR) (Not Detectd) Influenza Type B (PCR) (Not Detectd) RSV (PCR) (Not Detectd) SARS-CoV-2 (PCR) (Not Detectd) - EKG Data EKG Comments: 12-lead Electrocardiogram Interpretation Note EKG was reviewed and interpreted by myself. 12-lead ECG performed at 1557 is interpreted by me as revealing normal sinus rhythm at a rate of 90 beats per minute. [place] is normal. [place] interval is 157 ms, QRS duration is 100 ms, QTc is 432 ms.. There were no ST or T wave abnormalities to suggest myocardial ischemia or injury. R wave progression across the precordium was satisfactory. By my interpretation this EKG is non-diagnostic for acute ischemia. (Ang Stout) Disposition <Chon Bryan - Last Filed: 08/21/24 14:18> Time of Disposition: 17:46 <Ang Stout - Last Filed: 08/21/24 19:56> Clinical Impression: Fall, Weakness, UTI (urinary tract infection) Disposition: ADMITTED IP TO THIS HOSP Condition: Stable
[2024-08-21] MEDS: KETOROLAC 15 MG/ML 1 ML VIAL IM STA (15:42)
[2024-08-21] MEDS: SODIUM CHLORIDE 0.9% 1,000 ML IV STA (16:12)
[2024-08-21] MEDS: MORPHINE SULFATE 4 MG/ML SYRINGE IVP STA (16:13)
--- NOTE | 2024-08-21 16:18 | XR ---
EXAMINATION TYPE: XR pelvis AP view DATE OF EXAM: 08/21/2024 3:36 PM CLINICAL INDICATION: Female, 74 years old with history of fall, pain; COMPARISON: 12/31/2016 TECHNIQUE: XR pelvis AP view, examined in a single projection. FINDINGS: There is no evidence of fracture or dislocation. There is no soft tissue abnormality. No a bnormal calcifications are present. The spine appears intact. The hips appear intact. No significant degeneration. Right hip arthroplasty appears intact. IMPRESSION: No acute osseous pathology. Mild left hip degeneration changes of the hip. [facility], , 08/21/2024 4:15 PM
--- NOTE | 2024-08-21 16:19 | XR ---
EXAMINATION TYPE: XR chest 1V portable DATE OF EXAM: 08/21/2024 3:36 PM CLINICAL INDICATION: Female, 74 years old with history of fall, pain; [facility] COMPARISON: Chest radiographs from 01/30/2017. TECHNIQUE: XR chest 1V portable Frontal view of the chest. FINDINGS: Lungs/Pleura: There is flattening of the diaphragm with increased lucency of the lungs. No evidence o f pneumothorax, pleural effusion or focal consolidation. Pulmonary vascularity: Unremarkable. Heart/mediastinum: Cardiomediastinal silhouette is unremarkable. Musculoskeletal: No acute osseous pathology. IMPRESSION: 1. No acute cardiopulmonary disease process. 2. COPD changes. [facility], , 08/21/2024 4:16 PM
[2024-08-21 16:24] LABS: Basophils # (A) 0.1 k/uL (0-0.2); Basophils % (A) 1 %; Eosinophils # (A) 0.4 k/uL (0-0.7); Eosinophils % (A) 3 %; HCT 40.5 % (34.0-46.0); HGB 13.3 gm/dL (11.4-16.0); Lymphocytes # (A) 2.6 k/uL (1.0-4.8); Lymphocytes % (A) 24 %; MCH 29.4 pg (25.0-35.0); MCHC 32.8 g/dL (31.0-37.0); MCV 89.8 fL (80.0-100.0); Mean Platelet Volume 8.4; Monocytes # (A) 0.6 k/uL (0-1.0); Monocytes % (A) 6 %; Neutrophils # (A) 7.1 k/uL (1.3-7.7); Neutrophils % (A) 64 %; Platelet Count 344 k/uL (150-450); RBC 4.51 m/uL (3.80-5.40); RDW 14.4 % (11.5-15.5); WBC 11.1 k/uL (3.8-10.6)
--- NOTE | 2024-08-21 16:28 | CT ---
EXAMINATION TYPE: CT brain cspine wo con CT DLP: 1329.4 mGycm, Automated exposure control for dose reduction was used. DATE OF EXAM: 08/21/2024 3:52 PM COMPARISON: None. CLINICAL INDICATION: Female, 74 years old with history of fall, pain; Fall yesterday, hit head, no lo c, no thinners. TECHNIQUE: Brain: Multiple axial CT images of the brain were obtained without IV contrast. Cspine: Axial CT images from the skull base to the inferior aspect of T2 we obtained without intraven ous contrast. Coronal and sagittal reformatted images were also reviewed. . FINDINGS: Brain: Extra-axial spaces: No abnormal extra-axial fluid collections. Ventricular system: Dilatation in proportion to cerebral atrophy. Cerebral parenchyma: Cerebral atrophy. No acute intraparenchymal hemorrhage or mass effect. The fay -white junction is well differentiated. Scattered hypoattenuating areas are seen within the white mat ter. Cerebellum: Unremarkable. Mass effect: No evidence of midline shift. Intracranial vasculature: Atherosclerotic calcifications of the intracranial vessels. Soft tissues: Normal. Calvarium/osseous structures: No depressed skull fracture. Deformity to the nasal bone with leftward deviation. Nasal septum is also deviated rightward. Paranasal sinuses and mastoid air cells: Clear. Visualized orbits: Orbital contents are intact. Cervical spine: Fracture: None. Osseous structures: Multilevel degenerative disc disease changes with endplate spurring and disc oste ophyte complex's. Ankylosis of the C3-C3 lateral facets. Vertebral alignment: Within normal limits. Spinal canal/Neural Foramina: No evidence of significant spinal canal narrowing. No evidence for sign ificant neural foraminal stenosis. Neck soft tissues: Prevertebral soft tissues are within normal limits. Other: The airway is patent. The lung apices are clear. IMPRESSION: 1. No acute intracranial process. 2. Nonspecific white matter changes, likely secondary to chronic small vessel ischemic disease. 3. Nasal bone deformity correlate with point tenderness for fracture. 4. No evidence of cervical spine fracture. 5. Mild multilevel degenerative disc disease. [facility], , 08/21/2024 4:26 PM
--- NOTE | 2024-08-21 16:34 | CT ---
EXAMINATION TYPE: CT lumbar spine wo con CT DLP: 2157.3 mGycm, Automated exposure control for dose reduction was used. DATE OF EXAM: 08/21/2024 3:52 PM COMPARISON: 02/29/2024. CLINICAL INDICATION: Female, 74 years old with history of fall, pain, Fall yesterday, hit head, no lo c, no thinners. TECHNIQUE: Multiple axial images were obtained from the midportion of T11 through the sacroiliac phill nts. Soft tissue and bone windows in coronal and sagittal planes were obtained and reviewed. Contrast used: mL of , (None, if empty). Oral contrast used: (None, if empty). FINDINGS: Alignment: There are 5 lumbar type vertebral bodies with grade 1 anterolisthesis of L4 and L5 and L5 and S1. Bone: No evidence of fracture is identified. Multilevel degeneration changes with osteophyte formation, disc space narrowing, vacuum disc phenomenon, facet joint arthropathy. Discs: T12-L1: No spinal canal or neural foraminal stenosis is identified. L1-L2: No spinal canal or neural foraminal stenosis is identified. L2-L3: Facet joint arthropathy and disc bulging result in mild to moderate spinal canal stenosis and moderate to severe right and mild to moderate left bilateral neural foraminal stenosis. L3-L4: Facet joint arthropathy and disc bulging result in mild spinal canal stenosis and mild to mode rate bilateral neural foraminal stenosis. L4-L5: Grade 1 anterolisthesis with disc uncovering with mild spinal canal stenosis and mild bilatera l neural foraminal stenosis. There is bilateral facet joint arthropathy.. L5-S1: Grade 1 anterolisthesis with disc uncovering with mild spinal canal stenosis. Facet joint arth ropathy with mild to moderate bilateral neural foraminal stenosis. . Facet joint arthropathy and disc bulging result in mild spinal canal stenosis and mild bilateral neural foraminal stenosis. Other: Scattered colonic diverticula. Left renal cortical cyst. IMPRESSION: 1. No evidence for spinal fracture. 2. Moderate degeneration changes of the spine with multilevel neural foraminal stenosis worse at L2-L 3 with moderate to severe right neural foraminal stenosis and at least [id number] spinal canal stenosis. [facility], Workstation: [id number], 08/21/2024 4:32 PM
[2024-08-21 16:35] LABS: ALT 22 U/L (4-34); AST 33 U/L (14-36); African American GFR (CKD) 81 (>60 ml/min/1.73 sqM); Albumin 4.3 g/dL (3.5-5.0); Alkaline Phosphatase 90 U/L (38-126); Anion Gap 6 mmol/L; Blood Urea Nitrogen 14 mg/dL (7-17); Calcium 9.4 mg/dL (8.4-10.2); Carbon Dioxide 33 mmol/L (22-30); Chloride 102 mmol/L (98-107); Creatine Kinase 199 U/L (30-135); Glucose 103 mg/dL (74-99); Magnesium 2.1 mg/dL (1.6-2.3); Non-African American GFR(CKD) 70 (>60 ml/min/1.73 sqM); Potassium 3.7 mmol/L (3.5-5.1); Sodium 141 mmol/L (137-145); Total Bilirubin 0.4 mg/dL (0.2-1.3); Total Protein 6.9 g/dL (6.3-8.2)
[2024-08-21 16:49] LABS: INR 0.8 (<1.2); Partial Thromboplastin Time 23.6 sec (22.0-30.0); Prothrombin Time 9.4 sec (10.0-12.5)
[2024-08-21 16:56] LABS: Appearance,Urine Clear (Clear); Bacteria,Urine Occasional /hpf; Bilirubin,Urine Negative (Negative); Blood,Urine Negative (Negative); Color,Urine Colorless; Glucose,Urine (UA) Negative (Negative); Ketones,Urine Negative (Negative); Leukocyte Esterase,Urine Small (Negative); Mucus,Urine Rare /hpf; Nitrite,Urine Positive (Negative); Protein,Urine Negative (Negative); RBC,Urine 1 /hpf (0-5); Specific Gravity,Urine 1.008 (1.001-1.035); Squamous Epithelial Cell,Urine 1 /hpf (0-4); Urobilinogen,Urine <2.0 mg/dL (<2.0); WBC,Urine 12 /hpf (0-5)
[2024-08-21] MEDS: IPRATROPIUM-ALBUTEROL 3 ML NEB INHALATION STA (17:12)
[2024-08-21] MEDS ORDERED: ACETAMINOPHEN TAB 325 MG TAB PO PRN (17:43)
[2024-08-21] MEDS ORDERED: ONDANSETRON 4 MG/2 ML VIAL IVP PRN (17:43)
[2024-08-21] MEDS ORDERED: NALOXONE 0.4 MG/ML 1 ML VIAL IV PRN (17:43)
[2024-08-21] MEDS: SODIUM CHLORIDE 0.9% 1,000 ML IV SCH (18:14)
[2024-08-21] MEDS ORDERED: SUMAtriptan succinate 50 MG TAB PO PRN (20:13)
[2024-08-21] MEDS ORDERED: BUTALB/APAP/CAFF 50-325-40MG TAB PO PRN (20:13)
[2024-08-21] MEDS: ALPRAZolam 0.5 MG TAB PO PRN (22:30)
[2024-08-22] MEDS: VERAPAMIL SR 180 MG TABLET.ER PO SCH (08:33)
[2024-08-22] MEDS: ALPRAZolam 0.5 MG TAB PO SCH (08:34)
[2024-08-22] MEDS: hydroCHLOROthiazide 25 MG TAB PO SCH (08:34)
[2024-08-22] MEDS: ENOXAPARIN 40 MG/0.4 ML SYRINGE SQ SCH (08:34)
[2024-08-22] MEDS: PARoxetine 10 MG TAB PO SCH (08:34)
[2024-08-22] MEDS: PREGABALIN 75 MG CAP PO SCH (08:34)
[2024-08-22] MEDS: FAMOTIDINE 20 MG TAB PO SCH (08:34)
[2024-08-22] MEDS: ARIPiprazole 5 MG TAB PO SCH (08:34)
[2024-08-22 08:38] LABS: Basophils # (A) 0.06 X 10*3/uL (0.00-0.10); Basophils % (A) 0.9 %; Eosinophils # (A) 0.33 X 10*3/uL (0.04-0.35); Eosinophils % (A) 4.8 %; HCT 34.5 % (37.2-46.3); HGB 10.8 g/dL (12.0-15.0); Lymphocytes # (A) 2.33 X 10*3/uL (0.90-5.00); Lymphocytes % (A) 34.1 %; MCH 28.6 pg (27.0-32.0); MCHC 31.3 g/dL (32.0-37.0); MCV 91.3 FL (80.0-97.0); Mean Platelet Volume 10.7 FL (9.5-12.2); Monocytes # (A) 0.89 X 10*3/uL (0.20-1.00); NRBC Per 100 WBC 0 X 10*3/uL (0.00-0.01); Neutrophils % (A) 46.9 %; Platelet Count 297 X 10*3/uL (140-440); RBC 3.78 X 10*6/uL (4.10-5.20); RDW 14.4 % (11.5-14.5); WBC 6.83 X 10*3/uL (4.50-10.00)
[2024-08-22] MEDS: NON FORMULARY DRUG (Atomoxetine Hcl [Strattera] 80 MG Capsule) PO SCH (08:50)
[2024-08-22 09:36] LABS: ALT 16 U/L (8-44); AST 21 U/L (13-35); Albumin 3.6 g/dL (3.8-4.9); Albumin/Globulin Ratio 1.71 Ratio (1.60-3.17); Alkaline Phosphatase 80 U/L (41-126); BUN/Creat Ratio 18.29 Ratio (12.00-20.00); Blood Urea Nitrogen 12.8 mg/dL (9.0-27.0); Calcium 8.4 mg/dL (8.7-10.3); Chloride 108 mmol/L (96-109); Globulin 2.1 g/dL (1.6-3.3); Glucose 91 mg/dL (70-110); Potassium 3.8 mmol/L (3.5-5.5); Sodium 143 mmol/L (135-145); Total Bilirubin <0.2 mg/dL (0.3-1.2); Total Protein 5.7 g/dL (6.2-8.2)
--- NOTE | 2024-08-22 11:10 | P.CNOR ---
History of Present Illness - HPI Consult date: 08/22/24 Consult reason: other (Difficulty ambulating status post fall at home) History of present illness: Patient is 74-year-old female who presents with lower extremity weakness and inability to ambulate. Apparently she was at home a couple days ago and was try to get up from the couch. She normally has some difficulty changing positions but at this episode she tried to get up and unfortunately fell to the floor. She did not have her walker with her. She says that she stayed on the floor overnight and then the next day was able to get up and get to her collar and bring her walker with her to her car and she drove to the hospital. She says that she has significant weakness in her bilateral lower extremities. She says that she is having significant back pain. She denies any chest pain or shortness of breath. She had similar issue back in January of this year where she was seen with intractable back pain and weakness in her lower extremities and uncontrolled persistent diarrhea. Her diarrhea has resolved. At that point she underwent interventional pain management here at the hospital. Apparently she did better and was doing adequately through the summer. She was able to mobilize. There are number of times where she does not use her walker at home. She says that she has not been involved in any physical therapy over the summer. She says that she has not had any significant new troubles with her back until this weekend. She normally ambulates with a walker but often times does not use it. Review of Systems Difficulty ambulating as stated in HPI. Chronic low back pain. Normally ambulates at home with a walker. Has history of right total hip arthroplasty. She has chronic pain in her right hip. Denies chest pain shortness of breath. Denies any new diarrhea. Denies abdominal pain. She says she has not been doing any physical therapy. She sees psychiatrist and pain management. She normally takes Percocet regularly for her pain per Dr. Kelley Past Medical History Past Medical History: Asthma, COPD, Fibromyalgia, Hyperlipidemia, Hypertension, Osteoarthritis (OA), Pneumonia, Renal Disease Additional Past Medical History / Comment(s): Pt recently admitted to [facility] on 02/26/22 with facial cellulitis and also had an allergic reaction to vancomycin. Other Hx: Bronchitis, migraines, chronic low back pain/L5 fracture, osteoporosis, nasal fractures/deviated septum, kidney stones, UTI. History of Any Multi-Drug Resistant Organisms: None Reported MDRO Source:: face Past Surgical History: Adenoidectomy, Breast Surgery, Orthopedic Surgery, Tonsillectomy Additional Past Surgical History / Comment(s): R total hip arthroplasty d/t avascular necrosis 1983, L breast benign bx Past Anesthesia/Blood Transfusion Reactions: No Reported Reaction Past Psychological History: Anxiety, Bipolar, Depression, Panic Disorder Additional Psychological History / Comment(s): Patient lives with grand daughter Smoking Status: Former smoker, Vaper Past Alcohol Use History: None Reported Additional Past Alcohol Use History / Comment(s): Pt started smoking in 1961 and quit in 2018, patient uses vape every 3 days or so Past Drug Use History: None Reported - Past Family History Father Family Medical History: CVA/TIA, Diabetes Mellitus Additional Family Medical History / Comment(s): Father had a massive [place] in his late 60s or early 70s Mother Family Medical History: Myocardial Infarction ([place]) Additional Family Medical History / Comment(s): In her 70's had a heart attack Medications and Allergies Home Medications and Allergies Comment(s): Percocet as prescribed by Dr. Kelley Home Medications Medication Instructions Recorded Confirmed Type ALPRAZolam [Xanax] 0.5 mg PO TID PRN 11/11/19 08/21/24 History SUMAtriptan succinate [Imitrex] 50 mg PO BID PRN 02/24/22 08/21/24 History Verapamil HCl [Verapamil ER] 180 mg PO DAILY 02/24/22 08/21/24 History ARIPiprazole [Abilify] 5 mg PO DAILY 02/29/24 08/21/24 History Cyclobenzaprine [Flexeril] 5 mg PO TID PRN 02/29/24 08/21/24 History Pregabalin [Lyrica] 75 mg PO DAILY 02/29/24 08/21/24 History Tretinoin/Emollient Base 1 applic TOPICAL DAILY 02/29/24 08/21/24 History [Tretinoin 0.05% Emollient Crm] hydroCHLOROthiazide [Hydrodiuril] 25 mg PO DAILY 02/29/24 08/21/24 History oxyCODONE-APAP 5-325MG [Percocet 1 tab PO TID 02/29/24 08/21/24 History 5-325 mg] ALPRAZolam [Xanax XR] 2 mg PO DAILY 08/21/24 08/21/24 History Atomoxetine HCl [Strattera] 80 mg PO DAILY 08/21/24 08/21/24 History Butalb/APAP/Caff 50-325-40Mg 1 tab PO Q6H PRN 08/21/24 08/21/24 History [Fioricet 50-325-40] PARoxetine [Paxil] 10 mg PO DAILY 08/21/24 08/21/24 History Allergies Allergy/AdvReac Type Severity Reaction Status Date / Time vancomycin Allergy Rash/Hives Verified 08/21/24 16:29 Physical Examination Osteopathic Statement: *. No significant issues noted on an osteopathic structural exam other than those noted in the History and Physical/Consult. - L Spine: dermatomal strength & reflexes bilateral Strength: hip flexion: 5/5 (Her back is clear. There is no open wounds lacerations or abrasions. At her legs she is able lift her legs up off the bed independently. She has good 4+ out of 5 strength globally at her lower extremities. Calves thighs soft nontender. No pain with internal or external of her hips.) Strength: knee extension: 5/5 (5 out of 5 strength in knee extension and dorsiflexion plantarflexion. No focal deficits noted in her legs. No clonus. No hyperreflexia) Results - Labs Labs: Abnormal Lab Results - Last 24 Hours (Table) 08/21/24 08/21/24 08/21/24 Range/Units 16:10 16:10 16:10 WBC 11.1 H (3.8-10.6) k/uL RBC (4.10-5.20) X 10*6/uL Hgb (12.0-15.0) g/dL Hct (37.2-46.3) % MCHC (32.0-37.0) g/dL PT 9.4 L (10.0-12.5) sec Carbon Dioxide 33 H (22-30) mmol/L Glucose 103 H (74-99) mg/dL Plasma Lactic Acid Anatoliy (0.7-2.0) mmol/L Calcium (8.7-10.3) mg/dL Total Bilirubin (0.3-1.2) mg/dL Creatine Kinase 199 H (30-135) U/L Total Protein (6.2-8.2) g/dL Albumin (3.8-4.9) g/dL Urine Nitrite (Negative) Ur Leukocyte Esterase (Negative) Urine WBC (0-5) /hpf Urine Bacteria (None) /hpf Urine Mucus (None) /hpf 08/21/24 08/21/24 08/22/24 Range/Units 16:10 16:38 04:14 WBC (3.8-10.6) k/uL RBC 3.78 L (4.10-5.20) X 10*6/uL Hgb 10.8 L (12.0-15.0) g/dL Hct 34.5 L (37.2-46.3) % MCHC 31.3 L (32.0-37.0) g/dL PT (10.0-12.5) sec Carbon Dioxide (22-30) mmol/L Glucose (74-99) mg/dL Plasma Lactic Acid Anatoliy 2.3 H* (0.7-2.0) mmol/L Calcium (8.7-10.3) mg/dL Total Bilirubin (0.3-1.2) mg/dL Creatine Kinase (30-135) U/L Total Protein (6.2-8.2) g/dL Albumin (3.8-4.9) g/dL Urine Nitrite Positive H (Negative) Ur Leukocyte Esterase Small H (Negative) Urine WBC 12 H (0-5) /hpf Urine Bacteria Occasional H (None) /hpf Urine Mucus Rare H (None) /hpf 08/22/24 Range/Units 04:14 WBC (3.8-10.6) k/uL RBC (4.10-5.20) X 10*6/uL Hgb (12.0-15.0) g/dL Hct (37.2-46.3) % MCHC (32.0-37.0) g/dL PT (10.0-12.5) sec Carbon Dioxide (22-30) mmol/L Glucose (74-99) mg/dL Plasma Lactic Acid Anatoliy (0.7-2.0) mmol/L Calcium 8.4 L (8.7-10.3) mg/dL Total Bilirubin <0.2 L (0.3-1.2) mg/dL Creatine Kinase (30-135) U/L Total Protein 5.7 L (6.2-8.2) g/dL Albumin 3.6 L (3.8-4.9) g/dL Urine Nitrite (Negative) Ur Leukocyte Esterase (Negative) Urine WBC (0-5) /hpf Urine Bacteria (None) /hpf Urine Mucus (None) /hpf H & H 08/21/24 08/22/24 Range/Units 16:10 04:14 Hgb 13.3 10.8 L (11.4-16.0) gm/dL Hct 40.5 34.5 L (34.0-46.0) % Coagulation 08/21/24 Range/Units 16:10 INR 0.8 (<1.2) Result Diagrams: 08/22/24 04:14 08/22/24 04:14 - Diagnostic results CT Scan - lumbar: report reviewed (Her prior MRI imaging and her new CT imaging is reviewed. She has listhesis L3-4 L4-5. She has right foraminal stenosis L2- 3. With some disc degeneration at that leve.l she does not have any evidence of fracture) Assessment and Plan Assessment: Status post fall at home Chronic low back pain with lower extremity radicular symptoms and intermittent weakness No persistent focal neurologic deficit at her lower extremities No evidence of instability or fracture at her lumbar spine Deconditioning and limited activity with poor compliance with planned therapy after prior evaluation Plan: Status post fall at home Chronic low back pain with lower extremity radicular symptoms and intermittent weakness No persistent focal neurologic deficit at her lower extremities No evidence of instability or fracture at her lumbar spine Deconditioning and limited activity with poor compliance with planned therapy after prior evaluation The patient has chronic changes at her lumbar spine and had a new issue with a fall. I do not see any focal neurologic deficits or evidence of instability or fracture at this point. On exam today she has good use of her lower extremities with good strength. She is shaky on her feet and I think she needs dedicated physical therapy to recondition and mobilize safely. Will have physical therapy work with her to try to help her mobilization and activity along with her ambulation transfers and endurance. I explained to her that is crucial that she continues to recondition even after hospitalization and she continue with physical therapy regularly several times a week over the next 1 to 2 months so that she can regain some safety and conditioning for her mobility at home. She says she has neglected to do this despite prior prescriptions. We had a long talk today and she is encouraged to try to increase her mobility and safety with physical therapy after the hospitalization as well. She had good results after her epidural steroid injection with portogram pain management in the past and we will have them see her again. She continues her regular pain management with Dr. Kelley and continues her other management with psychiatry. At this point we do not have any acute plans for surgical intervention. She should continue with her physical therapy and should continue to consider interventional pain management.
[2024-08-22] MEDS: MORPHINE SULFATE 4 MG/ML SYRINGE IV PRN (14:13)
--- NOTE | 2024-08-22 14:36 | P.HPIM ---
History of Present Illness H&P Date: 08/22/24 HISTORY OF PRESENT ILLNESS: 74-year-old with active medical history of severe lower back pain, hypertension, hyperlipidemia, chronic neuropathy, ADD, chronic depression, COPD/asthma, osteoarthritis, recurrent bronchitis, post right total hip arthroplasty secondary to avascular necrosis, post left breast biopsy was a former smoker was hospitalized last time in January for severe intractable lower back pain with weakness of the lower extremity was diagnosed as an acute L5 fracture compression was seen Ortho/spine did not require any surgical intervention was on steroid along with pain management and that going to subacute rehab for period of time had back brace and continue pain management along with steroid muscle relaxer has done well was referred to pain management for epidural injection is still seen Ortho/spine for conservative management did not require any intervention so far. She presented to the emergency department with complaining of sudden collapse an d inability to ambulate and walk started yesterday with severe pain 8 out of 10 in the leg become quite weak and fell and hit her head was on the floor for about 10 hours could not get up with herself and had quite incontinence at the time she spent all night on the floor then to crawl in the morning all the way and with the help to neighbor was able to get herself in the car and drove all the way to the emergency department, She is seen apparently Dr. Kelley neurology who is helping her pain management continue to have symptoms of paresthesia mild urinary retention/incontinence, patient denies any fever chills body ache no recent infection or no recent injury as well beside her current fall. 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 Ended up having CT of the head neck and lumbar spine lumbar spine no evidence of spinal fracture moderate degenerative change of the spine with multilevel neural aquino stenosis worsening in the L2-L3 with moderate to severe right neural aquino stenosis and at least mild to moderate spinal canal stenosis. CAT scan of the brain shows no acute intracranial hemorrhage nonspecific white matter change consistent with small vessel disease only. Laboratory value originally showed mild elevated white blood cell at 11.1 electrolyte panel with mild elevated blood sugar lactic acid was 2.3 CK at 199 her UA was slightly red positive she was giving 1 g of Rocephin for UTI and Morphine Sulfate 4 Mg IV Every 4 Hours along with Flexeril and Lyrica No Steroid Was Used in the Emergency Department No Consultation Was Requested yet Patient Has Been Seen Dr. Duvall, and probably request anesthesia/pain management as well. REVIEW OF SYSTEMS: CONSTITUTIONAL: Well-developed no acute respiratory distress. EYES: No icterus sclerae, no conjunctivitis. EARS, NOSE, MOUTH, THROAT, and FACE: No sore throat, lymphadenopathy, carotid bruits or deformity. RESPIRATORY: No SOB cough or wheezes. CARDIOVASCULAR: No CP, Palpitation, PND, Orthopnea, or angina. GASTROINTESTINAL: No Abd pain, Nausea or vomiting, no Diarrhea or constipation, No GI Bleed, no distention or masses. GENITOURINARY: Negative for Hematuria or UTI, no kidney stones. INTEGUMENT/BREAST: Negative for any muscular injury with mild osteoarthritis.. HEMATOLOGIC/LYMPHATIC: Negative for bleed or purpura. MUSCULOSKELTAL: Positive myalgia and arthralgia. NEURLOGICAL: Positive lower extremity weakness with simple weakness bilaterally. BEHAVIORAL/PSYCH: Severe depression. ENDOCRINE: Negative. PHYSICAL EXAMINATION: General Appearance: Alert, cooperative, no distress, appears stated age. Neck HEENT: Supple, no lymphadenopathy, no thyroid enlargement, no carotid bruits. Lungs: Decreased breath sound bilaterally found hyposmotic slight wheezes. Chest Wall: Decreased expansion with deep inspiration no tenderness and no deformity was found on exam, no costochondral pain or discomfort. Heart: Regular rate and rhythm, S1, S2 normal, no murmur, rub or gallop. Back: Symmetric, no curvature, ROM normal, no CVA tenderness. Abdomen: Soft, non-tender, bowel sounds active all four quadrants, no masses, no organomegaly. Extremities: Extremities normal, atraumatic, no cyanosis or edema. Pulses: 2+ and symmetric. Skin: Skin color, texture, tugor normal, no rashes or lesions. Neurologic: Alert oriented x3 cranial nerves II through XII intact, positive weakness of the lower extremity not able to do gait and balance exam. ASSESSMENT AND PLAN: _Acute intractable lower back pain with previous history of L4/L5 compression this time had severe spinal stenosis no fracture was found with intractable symptoms she is describing patient will be hospitalized continue pain management consult Ortho/spine, continue morphine sulfate will consult also pain management for possible epidural injection. _Incontinence of urine and stool: Most likely from the severity of her spinal stenosis. _UTI with early sepsis: Lactic acid is elevated with mild elevated white blood cell vitals are stable otherwise, patient was giving 1 g of Rocephin will continue current management medication. _Hypertension: Resume verapamil 180 mg daily try to keep systolic blood pressure below 140. _ Severe Neuropathy of the Lower Exts: will stay on Lyrica for now. _Asthma/COPD: Continue albuterol/ipratropium continue to watch oxygen level will add steroid inhaler as well. _Hyperlipidemia: Remain on atorvastatin 20 mg a day. _Chronic depression and bipolar disorders: Has been on Abilify, Wellbutrin XL, paroxetine And Topamax. _Hypothyroidism: Continue levothyroxine 25 mcg daily. _Chronic pain syndrome: Has been on hydrocodone along with muscle relaxer. _Chronic edema: Remain on Mild dose of HydroDIURIL. _GI prophylaxis: Pepcid 20 mg daily. _DVT prophylaxis: Continue heparin 5000 subcutaneous every 12 hours CODE STATUS: Full code. Admit patient to the inpatient service for more than 2 night stay. Past Medical History Past Medical History: Asthma, COPD, Fibromyalgia, Hyperlipidemia, Hypertension, Osteoarthritis (OA), Pneumonia, Renal Disease Additional Past Medical History / Comment(s): Pt recently admitted to [facility] on 02/26/22 with facial cellulitis and also had an allergic reaction to vancomycin. Other Hx: Bronchitis, migraines, chronic low back pain/L5 fracture, osteoporosis, nasal fractures/deviated septum, kidney stones, UTI. History of Any Multi-Drug Resistant Organisms: None Reported MDRO Source:: face Past Surgical History: Adenoidectomy, Breast Surgery, Orthopedic Surgery, Tonsillectomy Additional Past Surgical History / Comment(s): R total hip arthroplasty d/t avascular necrosis 1983, L breast benign bx Past Anesthesia/Blood Transfusion Reactions: No Reported Reaction Past Psychological History: Anxiety, Bipolar, Depression, Panic Disorder Additional Psychological History / Comment(s): Patient lives with grand daughter Smoking Status: Former smoker, Vaper Past Alcohol Use History: None Reported Additional Past Alcohol Use History / Comment(s): Pt started smoking in 1962 and quit in 2019, patient uses vape every 3 days or so Past Drug Use History: None Reported - Past Family History Father Family Medical History: CVA/TIA, Diabetes Mellitus Additional Family Medical History / Comment(s): Father had a massive [place] in his late 60s or early 70s Mother Family Medical History: Myocardial Infarction ([place]) Additional Family Medical History / Comment(s): In her 70's had a heart attack Medications and Allergies Home Medications Medication Instructions Recorded Confirmed Type ALPRAZolam [Xanax] 0.5 mg PO TID PRN 11/11/19 08/21/24 History SUMAtriptan succinate [Imitrex] 50 mg PO BID PRN 02/24/22 08/21/24 History Verapamil HCl [Verapamil ER] 180 mg PO DAILY 02/24/22 08/21/24 History ARIPiprazole [Abilify] 5 mg PO DAILY 02/29/24 08/21/24 History Cyclobenzaprine [Flexeril] 5 mg PO TID PRN 02/29/24 08/21/24 History Pregabalin [Lyrica] 75 mg PO DAILY 02/29/24 08/21/24 History Tretinoin/Emollient Base 1 applic TOPICAL DAILY 02/29/24 08/21/24 History [Tretinoin 0.05% Emollient Crm] hydroCHLOROthiazide [Hydrodiuril] 25 mg PO DAILY 02/29/24 08/21/24 History oxyCODONE-APAP 5-325MG [Percocet 1 tab PO TID 02/29/24 08/21/24 History 5-325 mg] ALPRAZolam [Xanax XR] 2 mg PO DAILY 08/21/24 08/21/24 History Atomoxetine HCl [Strattera] 80 mg PO DAILY 08/21/24 08/21/24 History Butalb/APAP/Caff 50-325-40Mg 1 tab PO Q6H PRN 08/21/24 08/21/24 History [Fioricet 50-325-40] PARoxetine [Paxil] 10 mg PO DAILY 08/21/24 08/21/24 History Allergies Allergy/AdvReac Type Severity Reaction Status Date / Time vancomycin Allergy Rash/Hives Verified 08/21/24 16:29 Physical Exam Vitals: Vital Signs Temp Pulse Pulse Resp BP BP Pulse Ox 08/22/24 01:27 98.1 F 78 17 101/69 93 L 08/21/24 21:32 97.3 F L 81 17 126/78 95 08/21/24 20:42 98.4 F 87 16 105/74 96 08/21/24 17:25 75 20 132/85 100 08/21/24 17:21 86 08/21/24 17:12 84 08/21/24 15:00 98.4 F 90 18 123/70 96 Intake and Output 08/21/24 08/21/24 08/22/24 14:59 22:59 06:59 Other: Voiding Method Toilet # Voids 1 3 Weight 68.039 kg Results CBC & Chem 7: 08/22/24 04:14 08/22/24 04:14 Labs: Abnormal Lab Results - Last 24 Hours (Table) 08/21/24 08/21/24 08/21/24 Range/Units 16:10 16:10 16:10 WBC 11.1 H (3.8-10.6) k/uL PT 9.4 L (10.0-12.5) sec Carbon Dioxide 33 H (22-30) mmol/L Glucose 103 H (74-99) mg/dL Plasma Lactic Acid Anatoliy (0.7-2.0) mmol/L Creatine Kinase 199 H (30-135) U/L Urine Nitrite (Negative) Ur Leukocyte Esterase (Negative) Urine WBC (0-5) /hpf Urine Bacteria (None) /hpf Urine Mucus (None) /hpf 08/21/24 08/21/24 Range/Units 16:10 16:38 WBC (3.8-10.6) k/uL PT (10.0-12.5) sec Carbon Dioxide (22-30) mmol/L Glucose (74-99) mg/dL Plasma Lactic Acid Anatoliy 2.3 H* (0.7-2.0) mmol/L Creatine Kinase (30-135) U/L Urine Nitrite Positive H (Negative) Ur Leukocyte Esterase Small H (Negative) Urine WBC 12 H (0-5) /hpf Urine Bacteria Occasional H (None) /hpf Urine Mucus Rare H (None) /hpf Thrombosis Risk Factor Assmnt - Choose All That Apply Any of the Below Risk Factors Present?: Yes Each Factor Represents 1 point: Abnormal pulmonary function (COPD), Obesity (BMI >25) Other Risk Factors: Yes Each Risk Factor Represents 2 Points: Age 61-74 years Other congenital or acquired thrombophilia - If yes, enter type in comment: No Thrombosis Risk Factor Assessment Total Risk Factor Score: 4 Thrombosis Risk Factor Assessment Level: Moderate Risk
--- NOTE | 2024-08-22 15:01 | P.PAINPG ---
Objective - Vital Signs Vital signs: Vital Signs Temp 97.8 F 08/22/24 07:00 Pulse 71 08/22/24 07:00 Resp 16 08/22/24 07:00 BP 117/76 08/22/24 07:00 Pulse Ox 94 L 08/22/24 07:00 FiO2 Intake & Output 08/21/24 08/22/24 08/22/24 18:59 06:59 18:59 Intake Total 118 Balance 118 Weight 68.039 kg 68.039 kg Intake: Oral 118 Other: Voiding Method Toilet Toilet # Voids 3 - Labs CBC & Chem 7: 08/22/24 04:14 08/22/24 04:14 Labs: Abnormal Lab Results - Last 24 Hours (Table) 08/21/24 08/21/24 08/21/24 Range/Units 16:10 16:10 16:10 WBC 11.1 H (3.8-10.6) k/uL RBC (4.10-5.20) X 10*6/uL Hgb (12.0-15.0) g/dL Hct (37.2-46.3) % MCHC (32.0-37.0) g/dL PT 9.4 L (10.0-12.5) sec Carbon Dioxide 33 H (22-30) mmol/L Glucose 103 H (74-99) mg/dL Plasma Lactic Acid Anatoliy (0.7-2.0) mmol/L Calcium (8.7-10.3) mg/dL Total Bilirubin (0.3-1.2) mg/dL Creatine Kinase 199 H (30-135) U/L Total Protein (6.2-8.2) g/dL Albumin (3.8-4.9) g/dL Urine Nitrite (Negative) Ur Leukocyte Esterase (Negative) Urine WBC (0-5) /hpf Urine Bacteria (None) /hpf Urine Mucus (None) /hpf 08/21/24 08/21/24 08/22/24 Range/Units 16:10 16:38 04:14 WBC (3.8-10.6) k/uL RBC 3.78 L (4.10-5.20) X 10*6/uL Hgb 10.8 L (12.0-15.0) g/dL Hct 34.5 L (37.2-46.3) % MCHC 31.3 L (32.0-37.0) g/dL PT (10.0-12.5) sec Carbon Dioxide (22-30) mmol/L Glucose (74-99) mg/dL Plasma Lactic Acid Anatoliy 2.3 H* (0.7-2.0) mmol/L Calcium (8.7-10.3) mg/dL Total Bilirubin (0.3-1.2) mg/dL Creatine Kinase (30-135) U/L Total Protein (6.2-8.2) g/dL Albumin (3.8-4.9) g/dL Urine Nitrite Positive H (Negative) Ur Leukocyte Esterase Small H (Negative) Urine WBC 12 H (0-5) /hpf Urine Bacteria Occasional H (None) /hpf Urine Mucus Rare H (None) /hpf 08/22/24 Range/Units 04:14 WBC (3.8-10.6) k/uL RBC (4.10-5.20) X 10*6/uL Hgb (12.0-15.0) g/dL Hct (37.2-46.3) % MCHC (32.0-37.0) g/dL PT (10.0-12.5) sec Carbon Dioxide (22-30) mmol/L Glucose (74-99) mg/dL Plasma Lactic Acid Anatoliy (0.7-2.0) mmol/L Calcium 8.4 L (8.7-10.3) mg/dL Total Bilirubin <0.2 L (0.3-1.2) mg/dL Creatine Kinase (30-135) U/L Total Protein 5.7 L (6.2-8.2) g/dL Albumin 3.6 L (3.8-4.9) g/dL Urine Nitrite (Negative) Ur Leukocyte Esterase (Negative) Urine WBC (0-5) /hpf Urine Bacteria (None) /hpf Urine Mucus (None) /hpf PQRS Measure Charge Sheet Comment: HISTORY OF PRESENT ILLNESS: A 74 yr old inpatient female as a referral from Dr Duvall presents today w severe and chronic secondary to radiculopathy, spondylosis and facet arthropathy without myelopathy for evaluation. Pt states pain level is provoked at 8 /10 in intensity, constant, localized in the lower lumbar spine, predominantly axial, sharp in character w occasional shooting pain towards the L & R of midline. Pain is provoked by standing/ walking for periods > 5 min. Pain is alleviated by physician guided home stretches daily since March 2024, medications (MS 4mg IVP q4h prn, Tyl 650mg q6h prn, Flexeril prn), repositioning and rest . Pt states that Lyrica is ineffective and she has been refusing to take the medication because she doesn't have tingling or burning in the extremities. PMH: OA, Asthma, COPD, Fibromyalgia, Hyperlipidemia, HTN, CRF, Nephrolithiasis, OP, MDD/ Anxiety/ Bipolar/ Panic Disorder PSH: L5 Fracture, Nasal Fracture w Deviated Septum, L Breast Bx, Adenoidectomy, R TIMBO sec to Avascular Necrosis (1983), Tonsillectomy SH: Former tobacco user, Vape Use, Occ ETOH use, No illicit drug use. Lives w Granddaughter FH: Fa- CVA, Massive CA in late 60s. Mo- CA in her late 70s All: See list Meds: See list REVIEW OF ORGAN SYSTEMS: CONSTITUTIONAL: No fevers or chills. No recent weight loss. NEUROLOGICAL: + numbness and tingling along the distal extremities. No seizure disorders or headaches. MUSCULOSKELETAL: + pain PSYCHIATRIC: Denies current depression or suicidal thoughts. Physical Examinations : Constitutional : Cooperative , not in acute distress . Neurologic : Cranial nerve II to XII intact. No focal neurological deficits. Psychiatric : alert & oriented x 3. Matching mood & appropriate affect. Judgment & insight intact. Musculoskeletal : Cervical Spine Motor strength in the deltoid and biceps: Normal right side. Normal Left side Motor strength biceps and the wrist extensors: Normal right side . Normal left side Motor strength in the triceps muscle: Normal right side. Normal left side Deep tendon reflexes: Normal at the biceps. Normal at Brachioradialis. Normal at triceps Vertebral body tenderness to deep palpation over Cervical facet loading test: positive bilaterally Spurling test: positive bilaterally Neck distraction test: positive bilaterally Carolina sign: positive bilaterally Lumbar spine Motor strength lower extremities ,thigh and legs 5/5 Right side , 5/5 Left side Deep tendon reflexes : Normal Knee Jerk. Normal Ankle Jerk Vertebral body tenderness over L5 Jose Test positive BL L5-S1 Lumbar facet Loading Test: positive Right / positive Left Range of motion of the lumbar spine Flexion 30 degrees, extension 10 degrees Straight Leg Raise test: Left/ Right positive at degrees Juan José test: positive right / positive left. Severe tenderness over the Sacroiliac joint on the Right / Left sides Gaenslen test: positive bilaterally Seated flexion test: positive bilaterally. Sacral spine : Severe tenderness over the Sacroiliac joint: right side / left side Range of motion: Flexion of the lumbar spine <60 degrees Range of motion: Extension of the lumbar spine <20 degrees Gaenslen's Test positive Juan José test: positive right side / left side Thigh Thrust Test Sacral Thrust Test Imaging: CT non contrast lumbar spine from 08/21/24 reviewed Assessment/ Plan : Lumbar radiculopathy Recommendation of LISA L5-S1 #1. Would benefit from BL RFA as an outpatient also. Risks, benefits of procedure discussed and patient verbalized understanding. Admits to anti- coagulant use or medical history of diabetes. Protocol for discontinuation/ continuation of medications maulik procedure discussed. All questions answered. I have spent greater than 30 minutes on patient care today. Dr Jennings was a vailable by phone for the evaluation of this patient. The time was used to review the medical records including relevant urine studies and Prescription history (MAPs), review of the available imaging, evaluation and examination of the patient, coordination of care with the medical staff and if applicable referring physicians, as well as creation of the medical record PQRS Narrative: Smoking Status Current some day smoker Blood Pressure [Right Arm] 117/76 Blood Pressure 105/74 Pain Intensity [None] 0 Pain Intensity 6 Pain Scale Used Numeric (1 - 10) Scale Used Numeric (1 - 10) Home Medications: Ambulatory Orders ALPRAZolam [Xanax] 0.5 mg PO TID PRN 11/11/19 SUMAtriptan succinate [Imitrex] 50 mg PO BID PRN 02/24/22 Verapamil HCl [Verapamil ER] 180 mg PO DAILY 02/24/22 ARIPiprazole [Abilify] 5 mg PO DAILY 02/29/24 Cyclobenzaprine [Flexeril] 5 mg PO TID PRN 02/29/24 Pregabalin [Lyrica] 75 mg PO DAILY 02/29/24 Tretinoin/Emollient Base [Tretinoin 0.05% Emollient Crm] 1 applic TOPICAL DAILY 02/29/24 hydroCHLOROthiazide [Hydrodiuril] 25 mg PO DAILY 02/29/24 oxyCODONE-APAP 5-325MG [Percocet 5-325 mg] 1 tab PO TID 02/29/24 ALPRAZolam [Xanax XR] 2 mg PO DAILY 08/21/24 Atomoxetine HCl [Strattera] 80 mg PO DAILY 08/21/24 Butalb/APAP/Caff 50-325-40Mg [Fioricet 50-325-40] 1 tab PO Q6H PRN 08/21/24 PARoxetine [Paxil] 10 mg PO DAILY 08/21/24 Controlled Substance Measures - Controlled Substance Measures Is patient prescribed a controlled substance at discharge?: No
[2024-08-23 08:36] LABS: MCH 29.6 pg (27.0-32.0); MCHC 31.4 g/dL (32.0-37.0); MCV 94.3 FL (80.0-97.0); NRBC Per 100 WBC 0 X 10*3/uL (0.00-0.01); Platelet Count 287 X 10*3/uL (140-440); RBC 3.71 X 10*6/uL (4.10-5.20); RDW 14.5 % (11.5-14.5); WBC 6.22 X 10*3/uL (4.50-10.00)
[2024-08-23 09:02] LABS: ALT 15 U/L (8-44); AST 18 U/L (13-35); Albumin 3.6 g/dL (3.8-4.9); Albumin/Globulin Ratio 1.71 Ratio (1.60-3.17); Alkaline Phosphatase 79 U/L (41-126); Blood Urea Nitrogen 11.6 mg/dL (9.0-27.0); Calcium 8.5 mg/dL (8.7-10.3); Carbon Dioxide 25.2 mmol/L (21.6-31.8); Chloride 109 mmol/L (96-109); Globulin 2.1 g/dL (1.6-3.3); Glucose 99 mg/dL (70-110); Potassium 3.9 mmol/L (3.5-5.5); Sodium 144 mmol/L (135-145); Total Bilirubin <0.2 mg/dL (0.3-1.2); Total Protein 5.7 g/dL (6.2-8.2)
[2024-08-23] MEDS ORDERED: IOPAMIDOL M200 10 ML VIAL ONE (11:15)
[2024-08-23] MEDS ORDERED: methylPREDNISolone ACETATE 40 MG/ML 1 ML VIAL ONE (11:15)
--- NOTE | 2024-08-23 11:21 | P.PCN ---
Date of Procedure: 08/23/24 Procedure(s) Performed: PREOPERATIVE DIAGNOSIS: 1- Lumbar Degenerative Disc Diseases 2-Lumbar spondylosis with Facet arthropathy without myelopathy. 3-lumbar spinal stenosis 4-lumbar radiculopathy POSTOPERATIVE DIAGNOSIS: 1-lumbar degenerative disc disease. 2-lumbar spondylosis with facet arthropathy without myelopathy. 3-lumbar spinal stenosis. 4-lumbar radiculopathy PROCEDURE 1. Lumbar epidural steroid injection under fluoroscopic guidance at the L5-S1 level. (Fluoroscopy imaging was available in radiology department) 2. Lumbar epidurogram. ANESTHESIA: Lidocaine 1% 3 and then only. EBL: Minimal PROCEDURE INDICATION: The patient with low back pain and radiculitis symptoms unresponsive to conservative treatment. Fluoroscopy was used to optimize visualization of the needle placement and to maximize safety. PROCEDURE DESCRIPTION / TECHNIQUE: The patient was seen and identified in the preoperative area. Risks, benefits, complications including but not limited to infections ,bleeding ,allergic reaction to the medications ,nerve damage and not complete pain releife , and alternatives were discussed with the patient. The patient agreed to proceed with the procedure and signed the consent, and vital signs were stable. Patient was taken to the OR and time out was completed. The patient was placed in the prone position on procedure table and a pillow was placed under the abdomen to reduce lumbar lordosis. The lumbosacral area was prepped and draped in the usual sterile fashion.ere closely monitored during the procedure. Vital signs was monitered during the entire procedure. Using anterior-posterior fluoroscopy, the L5-S1 interlaminar space was identified and the skin over this site was marked and then infiltrated with 1% lidocaine subcutaneously. Subsequently, a 20-gauge Tuohy epidural needle was inserted and advanced toward the epidural space using the ``Loss of resistance technique and guided by AP and lateral fluoroscopy. The correct needle position in the epidural space was verified with the injection of 2 mL of the water soluble contrast dye Isovue 200 contrast and observing an excellent epidurogram with the epidural spread of the dye, after negative aspiration for blood and CSF and in the absence of paresthesias. Again after negative aspiration, a 6 ml mixture containing 40 mg of Depo-medrol ( Preservetive Free ), and 2 ml of preservative free Normal Saline, and 2 ml of preservative free lidocaine 1% solution was injected and a washout of epidurogram was seen. Needle was withdrawn intact, skin was cleansed, and bandages were applied. COMPLICATIONS: None DISPOSITION / PLANS: The patient was placed in a supine position and transferred to the recovery area in a stable condition for observation. There was no evidence of lower extremity motor or sensory deficit after the procedure. Patient was discharged from the recovery room after meeting discharge criteria. Home discharge instructions were given to the patient by the staff. The patient was reexamined prior to discharge. The patient will schedule a follow up in the clinic in 2-4 weeks.
--- NOTE | 2024-08-23 11:49 | FL ---
EXAMINATION TYPE: FL guided pain mgmt statistic DATE OF EXAM: 08/23/2024 FLUOROSCOPY L[facility]I IN PAIN SERVICES FL TIME 3.4 SECS DAP [id number]. One image submitted. [facility], , 08/23/2024 11:47 AM
[2024-08-23 15:09] VITALS: RESP 18
[2024-08-23] MEDS: IPRATROPIUM-ALBUTEROL 3 ML NEB INHALATION PRN (18:26)
--- NOTE | 2024-08-23 21:27 | P.PN ---
Subjective Progress Note Date: 08/23/24 HISTORY OF PRESENT ILLNESS: 74-year-old with active medical history of severe lower back pain, hypertension, hyperlipidemia, chronic neuropathy, ADD, chronic depression, COPD/asthma, osteoarthritis, recurrent bronchitis, post right total hip arthroplasty secondary to avascular necrosis, post left breast biopsy was a former smoker was hospitalized last time in January for severe intractable lower back pain with weakness of the lower extremity was diagnosed as an acute L5 fracture compression was seen Ortho/spine did not require any surgical intervention was on steroid along with pain management and that going to subacute rehab for period of time had back brace and continue pain management along with steroid muscle relaxer has done well was referred to pain management for epidural injection is still seen Ortho/spine for conservative management did not require any intervention so far. She presented to the emergency department with complaining of sudden collapse and inability to ambulate and walk started yesterday with severe pain 8 out of 10 in the leg become quite weak and fell and hit her head was on the floor for about 10 hours could not get up with herself and had quite incontinence at the time she spent all night on the floor then to crawl in the morning all the way and with the help to neighbor was able to get herself in the car and drove all the way to the emergency department, She is seen apparently Dr. Kelley neurology who is helping her pain management continue to have symptoms of paresthesia mild urinary retention/incontinence, patient denies any fever chills body ache no recent infection or no recent injury as well beside her current fall. 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 Ended up having CT of the head neck and lumbar spine lumbar spine no evidence of spinal fracture moderate degenerative change of the spine with multilevel neural aquino stenosis worsening in the L2-L3 with moderate to severe right neural aquino stenosis and at least mild to moderate spinal canal stenosis. CAT scan of the brain shows no acute intracranial hemorrhage nonspecific white matter change consistent with small vessel disease only. Laboratory value originally showed mild elevated white blood cell at 11.1 electrolyte panel with mild elevated blood sugar lactic acid was 2.3 CK at 199 her UA was slightly red positive she was giving 1 g of Rocephin for UTI and Morphine Sulfate 4 Mg IV Every 4 Hours along with Flexeril and Lyrica No Steroid Was Used in the Emergency Department No Consultation Was Requested yet Patient Has Been Seen Dr. Duvall, and probably request anesthesia/pain management as well. 08/23/2024: Patient was seen and evaluated by Dr. Duvall for status post fall at home with chronic lower back pain lower extremity radicular symptoms with intermittent weakness and claudication with no persistent focal neurologic deficit but generalized weakness no evidence of instability or fracture of the spinal cord. Dr. Hernandez was not planning to do any intervention but recommend to continue pain management with Dr. Feng her neurologist also encourage physical therapy and possible pain management in the hospital. She was seen and evaluated by pain management review CT noncontrast of lumbar spine from her original admission recommend of epidural injection of the L5-S1 and would benefit from management probably as an outpatient as well. She will be continue of anticoagulation for now until he procedure done as epidural can be done while she is in house. Meanwhile continue physical therapy occupational therapy and still can offer patient benefit of doing short term rehab if needed. REVIEW OF SYSTEMS: CONSTITUTIONAL: Well-developed no acute respiratory distress. EYES: No icterus sclerae, no conjunctivitis. EARS, NOSE, MOUTH, THROAT, and FACE: No sore throat, lymphadenopathy, carotid bruits or deformity. RESPIRATORY: No SOB cough or wheezes. CARDIOVASCULAR: No CP, Palpitation, PND, Orthopnea, or angina. GASTROINTESTINAL: No Abd pain, Nausea or vomiting, no Diarrhea or constipation, No GI Bleed, no distention or masses. GENITOURINARY: Negative for Hematuria or UTI, no kidney stones. INTEGUMENT/BREAST: Negative for any muscular injury with mild osteoarthritis.. HEMATOLOGIC/LYMPHATIC: Negative for bleed or purpura. MUSCULOSKELTAL: Positive myalgia and arthralgia. NEURLOGICAL: Positive lower extremity weakness with simple weakness bilaterally. BEHAVIORAL/PSYCH: Severe depression. ENDOCRINE: Negative. PHYSICAL EXAMINATION: General Appearance: Alert, cooperative, no distress, appears stated age. Neck HEENT: Supple, no lymphadenopathy, no thyroid enlargement, no carotid bruits. Lungs: Decreased breath sound bilaterally found hyposmotic slight wheezes. Chest Wall: Decreased expansion with deep inspiration no tenderness and no deformity was found on exam, no costochondral pain or discomfort. Heart: Regular rate and rhythm, S1, S2 normal, no murmur, rub or gallop. Back: Symmetric, no curvature, ROM normal, no CVA tenderness. Abdomen: Soft, non-tender, bowel sounds active all four quadrants, no masses, no organomegaly. Extremities: Extremities normal, atraumatic, no cyanosis or edema. Pulses: 2+ and symmetric. Skin: Skin color, texture, tugor normal, no rashes or lesions. Neurologic: Alert oriented x3 cranial nerves II through XII intact, positive weakness of the lower extremity not able to do gait and balance exam. ASSESSMENT AND PLAN: _Acute intractable lower back pain with previous history of L4/L5 compression this time had severe spinal stenosis no fracture was found with intractable symptoms she is describing patient will be hospitalized continue pain management consult Ortho/spine, continue morphine sulfate will consult also pain management for possible epidural injection. She was seen and evaluated by pain management and Ortho/spine decide no intervention required but might benefit from epidural injection whether were able to the first session as an in-house and follow-up as an outpatient by pain management. _Incontinence of urine and stool: Most likely from the severity of her spinal stenosis. Symptoms are resolved at this point. _UTI with early sepsis: Lactic acid is elevated with mild elevated white blood cell vitals are stable otherwise, patient was giving 1 g of Rocephin will continue current management medication. Will switch patient to oral cefuroxime. _Hypertension: Resume verapamil 180 mg daily try to keep systolic blood pressure below 140. _ Severe Neuropathy of the Lower Exts: will stay on Lyrica for now. _Asthma/COPD: Continue albuterol/ipratropium continue to watch oxygen level will add steroid inhaler as well. _Hyperlipidemia: Remain on atorvastatin 20 mg a day. _Chronic depression and bipolar disorders: Has been on Abilify, Wellbutrin XL, paroxetine And Topamax. _Hypothyroidism: Continue levothyroxine 25 mcg daily. _Chronic pain syndrome: Has been on hydrocodone along with muscle relaxer. _Chronic edema: Remain on Mild dose of HydroDIURIL. Discussion: Patient was admitted seen yesterday for the first time was seen by Ortho/spine along with pain management likely for conservative no need for any surgical intervention with pain management might do epidural injection we will adjust the medication titrate mobility and physical therapy the patient is able to do may be will consider outpatient management otherwise if continue to have severe debility might require more than 1 person orthodontist assistant might benefit from going to SNF for rehab. Objective - Vital Signs Vital signs: Vital Signs Temp 97.7 F 08/23/24 01:58 Pulse 76 08/23/24 01:58 Resp 17 08/23/24 01:58 BP 110/64 08/23/24 01:58 Pulse Ox 95 08/23/24 01:58 FiO2 Intake & Output 08/22/24 08/22/24 08/23/24 06:59 18:59 06:59 Intake Total 354 Balance 354 Weight 68.039 kg Intake: Oral 354 Other: Voiding Method Toilet Toilet Toilet # Voids 3 4 2 - Labs CBC & Chem 7: 08/22/24 04:14 08/22/24 04:14 Labs: Abnormal Lab Results - Last 24 Hours (Table) 08/22/24 08/22/24 Range/Units 04:14 04:14 RBC 3.78 L (4.10-5.20) X 10*6/uL Hgb 10.8 L (12.0-15.0) g/dL Hct 34.5 L (37.2-46.3) % MCHC 31.3 L (32.0-37.0) g/dL Calcium 8.4 L (8.7-10.3) mg/dL Total Bilirubin <0.2 L (0.3-1.2) mg/dL Total Protein 5.7 L (6.2-8.2) g/dL Albumin 3.6 L (3.8-4.9) g/dL Microbiology - Last 24 Hours (Table) 08/21/24 16:38 Urine Culture - Preliminary Urine,Clean Catch Gram Neg Bacilli
[2024-08-23] MEDS: CYCLOBENZAPRINE 5 MG TAB PO PRN (21:28)
[2024-08-24 07:36] VITALS: BP 123/77; TEMP 97.5
[2024-08-24 08:03] VITALS: PULSE 88
== END 2024-08-24 11:15 | disposition home health service (06) | DRG 551 ==
LOC: EC 13:44 → 6NMEDSUR 17:43 → OBSVTOIN 08-23 09:14
PROVIDERS: ADMIT Internal Medicine Geriatric Medicine; ATTEND Internal Medicine Geriatric Medicine
PROC: 3E0R33Z Introduction of Anti-inflammatory into Spinal Canal, Percutaneous Approach (ICD-10-PCS; principal; 2024-08-23 10:15)
DX: M47.26 Other spondylosis with radiculopathy, lumbar region (principal); A41.9 Sepsis, unspecified organism; F31.9 Bipolar disorder, unspecified; I12.9 Hypertensive chronic kidney disease with stage 1 through stage 4 chronic kidney disease, or unspecified chronic kidney disease; J44.89 Other specified chronic obstructive pulmonary disease; E03.9 Hypothyroidism, unspecified; M51.16 Intervertebral disc disorders with radiculopathy, lumbar region; G89.4 Chronic pain syndrome; E78.5 Hyperlipidemia, unspecified; M79.7 Fibromyalgia; G62.9 Polyneuropathy, unspecified; R60.9 Edema, unspecified; M48.062 Spinal stenosis, lumbar region with neurogenic claudication; R73.9 Hyperglycemia, unspecified; R32 Unspecified urinary incontinence; R15.9 Full incontinence of feces; W18.30XA Fall on same level, unspecified, initial encounter; Y92.009 Unspecified place in unspecified non-institutional (private) residence as the place of occurrence of the external cause; Z96.641 Presence of right artificial hip joint; Z79.890 Hormone replacement therapy; Z87.891 Personal history of nicotine dependence; Z79.899 Other long term (current) drug therapy; Z87.39 Personal history of other diseases of the musculoskeletal system and connective tissue
CPT/HCPCS: 36415; 62323; 70450; 71045; 72125; 72131; 72170; 80053; 81001; 82550; 83605; 83735; 85025; 85027; 85610; 85730; 87077; 87086; 87186; 87636; 93005; 94640; 96361; 96365; 96375; 99285